=== PATIENT | female | born 1990 | race Caucasian/White ===

== ENCOUNTER → 2022-05-21 11:08 | Outpatient (CLI) | payer MEDICAID, SELFPAY ==
--- NOTE | 2022-05-21 11:10 | CA_ITS ---
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 Operator: Starla Candelario RVT Ht: 5 ft 8 in Wt: 175lbs BSA: 1.93 BP: 109/75 mmHg Indications: TVR X 2,BRADYCARDIA,SMOKER,HOUSE,CHF HX,HX DRUG USE 2D Dimensions LVOT 1.83 cm (M/F) 1.5-2.5 LA Volume 22.80 mL LA Volume Index 11.81 mL/m2 (M/F) 16-34 M-Mode Dimensions RVDd 3.23 cm (0.9-2.6) LA Diam 3.39 cm (1.9-4.0) LVDd 3.73 cm (3.5-5.7) Ao Diam 2.44 cm (2.0-3.7) LVDs 2.58 cm (3.5-5.7) IVSd 0.84 cm (0.6-1.1) PWd 0.46 cm (0.6-1.1) EF (Teich) 59.40% FS 30.80% EDV (Teich) 59.30 mL ESV (Teich) 24.10 mL LV Diastology E Decel Time 150.00 (160-240 msec) E/A Ratio 1.3 MED E' 12.70 (< 7 cm/sec) E'/MED E' Ratio 5.78 (>14) LAT E' 11.60 (<10 cm/sec) E/LAT E' Ratio 6.33 (>14) Aortic Valve AO Peak GR. 3.90 mmHg Mitral Valve MV E Max Brad. 73.00 (40-130 cm/s) MV A Velocity 56.00 (40-130 cm/s) E/A Ratio 1.31 MV Decel. Time 150.00 (160-240 ms) MV PHT 44.00 ms Pulmonary Valve PV Peak Velocity 55.00 (50-150 cm/s) Tricuspid Valve TR P. Velocity 232.00 cm/s TV Vmax 223.70 (30-100 cm/s) Left Ventricle Left atrium is normal size, left ventricle is normal size there is no concentric left ventricular hypertrophy, estimated ejection fraction 55% with no regional wall motion abnormality, diastolic parameters are within normal range. Right Ventricle Right atrium and right ventricle moderately enlarged with normal contractility. Aortic Valve Aortic valve is minimally thickened and fibrosed there is no aortic stenosis aortic insufficiency. Mitral Valve Mitral valve structurally normal, there is trace mitral regurgitation. Tricuspid Valve There is bioprosthetic valve noted in the tricuspid position, tricuspid valve is well-seated, mean gradient across the tricuspid valve is 9.2 mmHg, the color inflow pattern of tricuspid valve is not indicated valve significant tricuspid stenosis, there is moderate tricuspid regurgitation. Pulmonic Valve Pulmonic valve is poorly visualized. Great Vessels Aortic root is normal size. Inferior vena cava is normal size with normal inspiratory collapse. Pericardium No significant pericardial effusion noted. Conclusion 1. Normal left ventricular size preserved left ventricular systolic function, estimated ejection fraction 55% with no regional wall motion abnormality, diastolic parameters are within normal range. 2. Moderately enlarged right atrium and right ventricle. 3. Bioprosthetic valve in tricuspid position with no significant obvious tricuspid inflow obstruction, there is moderate tricuspid regurgitation. 4. No significant pericardial effusion noted. 5. Inferior vena cava normal size with normal inspiratory collapse. Electronically signed by : Robinson Claros MD 05/22/2022 11:31:42
== END ==
PROVIDERS: PCP Emergency Medicine; Visit Provider Nurse Practitioner Family
DX: R06.00 Dyspnea, unspecified (principal); Z95.2 Presence of prosthetic heart valve
CPT/HCPCS: 93306

== ENCOUNTER 2022-06-23 19:49 | Emergency (ER) | payer MEDICAID, SELFPAY ==
[2022-06-23 19:50] VITALS: BP 140/81; PULSE 97; RESP 20; TEMP 36.6; O2SAT 99; BMI 26.6
--- NOTE | 2022-06-23 20:11 | HMH.EDGENADL ---
ED Disposition Clinical Impression: Abdominal pain Qualifiers: Abdominal location: left lower quadrant Qualified Code(s): R10.32 - Left lower quadrant pain Disposition: Home, Self-Care Condition on Discharge: Good Instructions: DI for Acute Abdominal Pain Additional Instructions: You have been evaluated for abdominal pain, now resolved. Please monitor your symptoms closely. Tylenol or Motrin for pain. Bentyl for cramps. 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 Return to the emergency department at once for any new or worsening pain, fever, vomiting, other concerns. Prescriptions: Dicyclomine HCl 20 mg PO TIDP PRN #12 tab PRN Reason: Cramping Transmission Status: Pending to [id number] Referrals: Brooke Castaneda DO [Referring] - Time of Disposition: 23:47 - Critical Care Critical Care Time: No Attestation: On , the high probability of a clinically significant, sudden or life threatening deterioration of the following system(s) required my full and direct attention, intervention and personal management. The time I documented below is in addition to time spent performing reported procedures but includes the following listed in this critical care notation. Medical Decision Making - Medical Records Medical records reviewed: Yes: I reviewed the patient's medical records. - Cory Inquiry Pt receiving controlled substance: No Vital Signs: 06/23/22 19:50 06/23/22 20:52 06/23/22 21:00 Temperature 97.8 F Temperature Source Oral Pulse Rate 60 54 L Pulse Rate [Right] 97 H Respiratory Rate 20 Blood Pressure 89/48 L 88/41 L Blood Pressure [Right Arm] 140/81 Blood Pressure Mean Blood Pressure Mean [Right Arm] 100 02 Sat by Pulse Oximetry 99 97 98 06/23/22 21:33 06/23/22 22:00 Temperature Temperature Source Pulse Rate 57 L 63 Pulse Rate [Right] Respiratory Rate Blood Pressure 113/71 110/78 Blood Pressure [Right Arm] Blood Pressure Mean 86 Blood Pressure Mean [Right Arm] 02 Sat by Pulse Oximetry 98 97 - Lab Data Lab Results 06/23/22 19:57: Urine Color Yellow, Urine Appearance Sl cloudy, Urine pH 5.0, Ur Specific Morgan >= 1.030, Urine Protein 1+, Urine Glucose (UA) Negative, Urine Ketones Negative, Urine Blood Negative, Urine Nitrate Negative, Urine Bilirubin 1+ A, Urine Urobilinogen 1.0, Ur Leukocyte Esterase Trace, Urine WBC 10-20, Ur Squamous Epith Cells 5-10, Urine Bacteria 2+, Urine Mucus 1+, Urine Trichomonas 1+ 06/23/22 19:57: Urine HCG, Qual Negative 06/23/22 20:13: WBC 8.4, RBC 4.70, Hgb 13.1, Hct 43.2, MCV 92.0, MCH 27.9, MCHC 30.3 L, RDW 15.1, Plt Count 157, MPV 11.0 H, Neut % (Auto) 66.3, Lymph % (Auto) 26.6, [place] % (Auto) 4.8, Eos % (Auto) 1.3, Baso % (Auto) 0.9, Neut # (Auto) 5.6, Lymph # (Auto) 2.2, [place] # (Auto) 0.4, Eos # (Auto) 0.1, Baso # (Auto) 0.1 06/23/22 20:13: Sodium 142, Potassium 4.2, Chloride 106, Carbon Dioxide 31 H, Anion Gap 9.2, BUN 14, Creatinine 0.70, Estimated Creat Clear 142, Estimated GFR 96, Est GFR ( Amer) 116, Glucose 111 H, Calcium 9.5, Total Bilirubin 0.3, AST 31, ALT 16, Alkaline Phosphatase 145 H, Total Protein 7.7, Albumin 4.3, Globulin 3.4 H, Albumin/Globulin Ratio 1.3, Lipase 32 Result diagrams: 06/23/22 20:13 06/23/22 20:13 Orders (Tests/Meds): ED MEDICATIONS Discontinued Medications Generic Name Dose Route Start Last Admin Trade Name Jorgeq PRN Reason Stop Dose Admin Iopamidol 75 ml 06/23/22 21:13 06/23/22 21:14 Iopamidol-370 (76%);100ml Bottle IV 06/23/22 21:14 75 ml ONCE ONE Administration Ketorolac Tromethamine 15 mg 06/23/22 20:11 06/23/22 20:28 Ketorolac 30mg/Ml Vial IV 06/23/22 20:12 15 mg ONCE ONE Administration Ondansetron HCl 4 mg 06/23/22 20:11 06/23/22 20:29 Ondansetron 4mg/2ml Vial IV 06/23/22 20:12 4 mg ONCE ONE Administration Sodium Chloride 10 ml 06/23/22 21:13 06/23/22 21:14 Sodium Chloride 0.9% 10ml Syr
[2022-06-23 20:15] LABS: Urine Pregnancy, HCG Qual. Negative (Negative)
[2022-06-23 20:19] LABS: Microscopic, Urine URINE MICROSCOPIC (MICROSCOPIC)
[2022-06-23 20:20] LABS: Appearance,Urine SL CLOUDY (Clear); Blood, Urine Negative (Negative); Color,Urine YELLOW (Yellow); Glucose,Urine (UA) Negative (Negative); Ketones,Urine Negative (Negative); Leukocyte Esterase,Urine TRACE (Negative); Nitrate,Urine Negative (Negative); Protein,Urine 1+ (Negative); Specific Gravity, Urine >= 1.030 (1.005-1.030)
[2022-06-23 20:24] LABS: Bilirubin,Urine 1+ (Negative)
[2022-06-23 20:27] LABS: Basophils # 0.1 K/mm3 (0-0.2); Basophils % 0.9 % (0.1-2.0); Eosinophils # 0.1 K/mm3 (0.0-0.4); Eosinophils % 1.3 % (0.1-12.0); Hematocrit 43.2 % (37.0-47.0); Hemoglobin 13.1 g/dL (12.2-16.2); Lymphocytes # 2.2 K/mm3 (0.7-4.5); Lymphocytes % 26.6 % (10-50); Mean Corpuscular HGB Conc 30.3 g/dL (31.8-35.4); Mean Corpuscular Hemoglobin 27.9 pg (27.0-31.2); Monocytes # 0.4 K/mm3 (0.1-1.0); Monocytes % 4.8 % (1.7-9.3); Neutrophils # 5.6 K/mm3 (1.8-7.8); Neutrophils % 66.3 % (37.0-80.0); Platelet Count 157 K/mm3 (142-424); Red Cell Distribution Width 15.1 % (11.5-17.5); White Blood Count 8.4 K/mm3 (4.8-10.8)
[2022-06-23 20:31] LABS: Alanine Aminotransferase 16 U/L (12-78); Albumin Level 4.3 g/dl (3.5-5.0); Albumin/Globulin Ratio 1.3 (1.1-1.8); Alkaline Phosphatase 145 U/L (38-126); Anion Gap 9.2 mEq/L (5-15); Aspartate Amino Transferase 31 U/L (14-36); Bilirubin,Total 0.3 mg/dl (0.2-1.3); Blood Urea Nitrogen 14 mg/dl (7-17); Calcium 9.5 mg/dl (8.4-10.2); Carbon Dioxide 31 mmol/L (22.0-30.0); Chloride 106 mmol/L (98-107); Creatinine Clearance Estimated 142 mL/min (50-200); Estimated Glomerular Filt Rate 96 ml/min (>60); GFR (African American) 116 ML/MIN (>60); Globulin 3.4 g/dL (1.3-3.2); Glucose 111 mg/dl (74-100); Lipase 32 U/L (23-300); Potassium 4.2 mmoL/L (3.5-5.1); Sodium 142 mmol/L (136-145); Total Protein,Serum 7.7 g/dl (6.3-8.2)
[2022-06-23 20:52] VITALS: BP 89/48; PULSE 60; O2SAT 97
--- NOTE | 2022-06-23 20:56 | CT_ITS ---
PROCEDURE INFORMATION: Exam: CT Abdomen And Pelvis With Contrast Exam date and time: 06/23/2022 9:01 PM Age: 32 years old Clinical indication: Abdominal pain; Localized; Left lower quadrant (llq); Prior surgery; Surgery type: Cholecystectomy; Additional info: Llq pain TECHNIQUE: Imaging protocol: Computed tomography of the abdomen and pelvis with contrast. Radiation optimization: All CT scans at this facility use at least one of these dose optimization techniques: automated exposure control; mA and/or kV adjustment per patient size (includes targeted exams where dose is matched to clinical indication); or iterative reconstruction. Contrast material: ISOVUE; Contrast volume: 75 ml; Contrast route: IV; COMPARISON: No relevant prior studies available. FINDINGS: Liver: Normal. No mass. Gallbladder and bile ducts: Post cholecystectomy change. Pancreas: Normal enhancement. No ductal dilation. Spleen: No splenomegaly. Adrenal glands: No mass. Kidneys and ureters: No hydronephrosis. Stomach and bowel: Moderate stool burden. No obstruction. No mucosal thickening. Appendix: No evidence of appendicitis. Intraperitoneal space: Trace free fluid within the pelvis. Vasculature: No abdominal aortic aneurysm. Lymph nodes: No enlarged lymph nodes. Urinary bladder: Urinary bladder is decompressed and not well evaluated. Reproductive: Mild heterogeneity of the uterus and cervix. Bones/joints: No acute fracture. Soft tissues: No soft tissue swelling. IMPRESSION: Mild heterogeneity of the uterus and cervix which is nonspecific. If there is concern for pelvic pathology, targeted ultrasound can be obtained for further evaluation.
[2022-06-23 21:00] VITALS: BP 88/41; PULSE 54; O2SAT 98
[2022-06-23 21:07] LABS: Bacteria,Urine 2+ /lpf; Mucus,Urine 1+ /lpf
[2022-06-23 21:08] LABS: Trichomonas,Urine 1+ /lpf
[2022-06-23 21:33] VITALS: BP 113/71; PULSE 57; O2SAT 98
[2022-06-23 22:00] VITALS: BP 110/78; PULSE 63; O2SAT 97
--- NOTE | 2022-06-23 22:08 | US_ITS ---
PROCEDURE INFORMATION: Exam: US Pelvis, Transvaginal Exam date and time: 06/23/2022 11:21 PM Age: 32 years old Clinical indication: Pelvic pain; Additional info: RO torsion. Llq pain TECHNIQUE: Imaging protocol: Real-time transvaginal pelvic ultrasound with image documentation. Transvaginal imaging was used for better evaluation of the endometrium, adnexa, and/or cervix. COMPARISON: No relevant recent comparison exams. FINDINGS: Uterus: UTERUS measures approximately 8.1 x 4.3 x 4.3 cm. Endometrial stripe thickness: Endometrial thickness is approximately 7 mm. Right ovary/adnexa: RIGHT OVARY measures approximately 14.6 mL and demonstrates normal color flow. Few small anechoic follicles. Left ovary/adnexa: LEFT OVARY measures approximately 9.1 mL and demonstrates normal color flow. Few small anechoic follicles. Intraperitoneal space: No discernible adnexal mass or abnormality. No free fluid within the pelvis. IMPRESSION: Normal pelvic sonogram.
--- NOTE | 2022-06-23 22:09 | PC.NURSE ---
notified xray that ultrasound needs to be called in
--- NOTE | 2022-06-23 22:29 | PC.NURSE ---
rounded on pt and notified that we are awaiting hearing aid repair technician
--- NOTE | 2022-06-23 23:13 | PC.NURSE ---
pt gone to ultrasound
--- NOTE | 2022-06-23 23:36 | PC.NURSE ---
Patient has returned from ultrasound.
[2022-06-23 23:53] VITALS: BP 103/82; PULSE 77; RESP 18; TEMP 36.6; O2SAT 99
== END 2022-06-24 | disposition home or self-care (01) ==
PROVIDERS: Emergency Provider Emergency Medicine; PCP Emergency Medicine
DX: R10.32 Left lower quadrant pain (principal); Z88.2 Allergy status to sulfonamides; Z79.899 Other long term (current) drug therapy
CPT/HCPCS: 74177; 76830; 80053; 81001; 81025; 83690; 85025; 87086; 96374; 96375; 99284; J2405; Q9967

== ENCOUNTER 2022-09-13 13:07 | Emergency (ER) | payer MEDICAID, SELFPAY ==
[2022-09-13 13:08] VITALS: BP 128/91; PULSE 86; RESP 18; TEMP 37.1; O2SAT 100; BMI 25.8
[2022-09-13 13:43] VITALS: BP 114/81; PULSE 79; RESP 19; TEMP 37.1; O2SAT 100
--- NOTE | 2022-09-13 14:26 | HMH.EDSKAF ---
Discharge Plan Disposition Patient Disposition: Home, Self-Care Condition: Good Prescriptions Prescriptions: New clindamycin HCl [Cleocin HCl] 300 mg capsule 300 mg PO Q8H 10 Days Qty: 30 0RF No Action hydroxyzine pamoate 25 mg capsule 25 mg PO TID trazodone 50 mg tablet 50 mg PO DAILY PRN (Reason: Sleep) methadone 10 mg/5 mL solution 75 mg PO Q4H duloxetine 30 mg capsule,delayed release(DR/EC) 30 mg PO DAILY Referrals Follow up/Referrals: Provider,Referral, [Primary Care Provider] - See instructions Activity Restrictions/Add. Instructions Additional Instructions/Restrictions: Please use the mupirocin cream daily as prescribed on your facial wounds. Please also take the clindamycin daily as prescribed. Please follow-up with your primary care physician in the next 2 to 3 days for wound check. Please return to the emergency department if symptoms worsen. Clinical Impressions Clinical Impression: Impetigo, Cellulitis Instructions Patient Instructions: Impetigo, Cellulitis Print Language Print Language: Slovenian Discharge ED Provider: Aniya Yin Skin/Abscess/FB HPI General Chief complaint: Skin/Abscess/Foreign Body Stated complaint: rash on chin Time Seen by Provider: 09/13/22 13:45 Mode of Arrival: Ambulatory Source of Information: Patient Limitations: No Limitations Description of Symptoms (Recalled from ER Triage Doc. by RN): c/o rash on her chin that started last night as what she thought was a pimple and popped it and then last night the rash started to cover her chin, no change on her rash since then. History of Present Illness HPI narrative: Mrs. Zambrano is a 32-year-old female past medical history for IV drug use active user presenting to the emergency department complaining of a honeycomb, crusted rash alongside her lower chin. Nonpainful. Nonpruritic. Symptom onset yesterday. She reports it started off as a pimple and has significantly worsened. Patient also reports a chronic rash along her chest and upper extremities. She denies any notable abscesses. No fevers, chills, and/V or other systemic signs of infection. MD complaint: rash Onset (ago): day(s) Tetanus up to date: yes Location: face Severity: mild Consistency: constant Relieving factors: none Exacerbating factors: none Associated symptoms: denies other symptoms Treatments prior to arrival: none Related Data Home Medications Medication Instructions Recorded Confirmed hydroxyzine pamoate 25 mg capsule 25 mg PO TID anxiety 05/12/22 09/13/22 methadone 10 mg/5 mL oral solution 75 mg PO Q4H addiction 05/12/22 09/13/22 trazodone 50 mg tablet 50 mg PO DAILY PRN Sleep 05/12/22 09/13/22 duloxetine 30 mg capsule,delayed 30 mg PO DAILY mood 09/13/22 09/13/22 release Previous Rx's Medication Instructions Recorded clindamycin HCl 300 mg capsule 300 mg PO Q8H 10 days #30 caps 09/13/22 (Cleocin HCl) Allergies Allergy/AdvReac Type Severity Reaction Status Date / Time Sulfa (Sulfonamide Allergy Verified 06/23/22 20:50 Antibiotics) PFSH PFSH Medical History Dyspnea History of drug use Moderate tricuspid regurgitation Sinus bradycardia Tobacco use Surgical History (Updated 05/12/22 @ 13:52 by Nhung Salcedo RN) Tricuspid valve replaced Social History Smoking Status: Current every day smoker alcohol intake: never substance use type: former substance user and heroin current occupational status: other Travel in the last 8 weeks: Inside the [place] ROS Obtained: Yes All systems reviewed & no additional complaints except as documented Constitutional Constitutional: Reports system reviewed and no additional complaints, except as documented Eyes Eyes: Reports system reviewed and no additional complaints, except as documented ENT Ears, Nose, Mouth, and Throat: Reports system reviewed and no additional complaints, except as documented Cardiovascular
== END 2022-09-13 13:45 | disposition home or self-care (01) ==
PROVIDERS: Emergency Provider Student in an Organized Health Care Education/Training Program
DX: L01.00 Impetigo, unspecified (principal); L03.90 Cellulitis, unspecified; F19.11 Other psychoactive substance abuse, in remission; Z87.898 Personal history of other specified conditions; Z79.899 Other long term (current) drug therapy; I07.1 Rheumatic tricuspid insufficiency; Z95.4 Presence of other heart-valve replacement
CPT/HCPCS: 99283

== ENCOUNTER 2022-11-12 10:30 | Emergency (ER) | payer MEDICAID, SELFPAY ==
[2022-11-12 10:31] VITALS: BP 100/65; PULSE 73; RESP 16; TEMP 36.7; O2SAT 98; BMI 26.6
--- NOTE | 2022-11-12 11:00 | HMH.EDGENADL ---
Discharge Plan Disposition Patient Disposition: Home, Self-Care Condition: Good Prescriptions Prescriptions: New cefadroxil 500 mg capsule 500 mg PO BID 5 Days Qty: 10 0RF No Action hydroxyzine pamoate 25 mg capsule 25 mg PO TID trazodone 50 mg tablet 50 mg PO DAILY PRN (Reason: Sleep) methadone 10 mg/5 mL solution 75 mg PO Q4H duloxetine 30 mg capsule,delayed release(DR/EC) 30 mg PO DAILY clindamycin HCl [Cleocin HCl] 300 mg capsule 300 mg PO Q8H 10 Days Qty: 30 0RF Referrals Follow up/Referrals: Raul Castaneda MD [Primary Care Provider] - See instructions Activity Restrictions/Add. Instructions Additional Instructions/Restrictions: Discontinue use of intravenous drugs out of concern for development of endocarditis or sepsis, if you have any other concerning signs or symptoms, return to the ED for further evaluation. Clinical Impressions Clinical Impression: Impetigo Instructions Patient Instructions: DI for Skin Abscess Discharge ED Provider: Andrew Sultana General Adult HPI General Chief complaint: Skin/Abscess/Foreign Body Stated complaint: sores on body Time Seen by Provider: 11/12/22 10:35 Mode of Arrival: Ambulatory Source of Information: Patient Limitations: No Limitations Description of Symptoms (Recalled from ER Triage Doc. by RN): pt reports thinks she has impetigo, states she was treated for impetigo approx 1 month ago states areas are in same spots as approx 1 month ago. Reports started 3 days ago. 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 Patient states that she has had skin lesions popping up on her chin and chest, as well as bilateral upper and lower extremities, worse over the past 2 or 3 days. She was diagnosed with impetigo in the past, it seemed similar to this. Spots are not itchy, painful, or symptomatic in any way. She denies fevers, chills, chest pain, shortness of breath, nausea, vomiting, neurologic deficits, recent illness, sores on palms or soles, or any other concerning symptoms. Related Data Home Medications Medication Instructions Recorded Confirmed hydroxyzine pamoate 25 mg capsule 25 mg PO TID anxiety 05/12/22 09/13/22 methadone 10 mg/5 mL oral solution 75 mg PO Q4H addiction 05/12/22 09/13/22 trazodone 50 mg tablet 50 mg PO DAILY PRN Sleep 05/12/22 09/13/22 duloxetine 30 mg capsule,delayed 30 mg PO DAILY mood 09/13/22 09/13/22 release Previous Rx's Medication Instructions Recorded clindamycin HCl 300 mg capsule 300 mg PO Q8H 10 days #30 caps 09/13/22 (Cleocin HCl) cefadroxil 500 mg capsule 500 mg PO BID 5 days #10 caps 11/12/22 Allergies Allergy/AdvReac Type Severity Reaction Status Date / Time Sulfa (Sulfonamide Allergy Verified 06/23/22 20:50 Antibiotics) [facility] Disclaimer: The information contained in this section may have been updated after the patient was seen, as this information can be updated by other users. Medical History Dyspnea History of drug use Moderate tricuspid regurgitation Sinus bradycardia Tobacco use Surgical History (Updated 05/12/22 @ 13:52 by Nhung Salcedo RN) Tricuspid valve replaced Social History Smoking Status: Current every day smoker alcohol intake: never substance use type: former substance user and heroin current occupational status: other Travel in the last 8 weeks: Inside the [place] ROS Obtained: Yes All systems reviewed & no additional complaints except as documented Physical Exam General General appearance: alert and in no apparent distress Head Head exam: atraumatic, normocephalic and normal inspection Eye Eye exam: Present normal appearance, PERRL and EOMI ENT ENT exam: Present normal exam, normal gael
[2022-11-12 11:20] VITALS: BP 96/61; PULSE 76; RESP 17; TEMP 36.8; O2SAT 99
== END 2022-11-12 11:20 | disposition home or self-care (01) ==
PROVIDERS: Emergency Provider Emergency Medicine; PCP Emergency Medicine
DX: L01.00 Impetigo, unspecified (principal); R00.1 Bradycardia, unspecified; R21 Rash and other nonspecific skin eruption; L98.9 Disorder of the skin and subcutaneous tissue, unspecified; I34.0 Nonrheumatic mitral (valve) insufficiency; Z79.899 Other long term (current) drug therapy; Z88.2 Allergy status to sulfonamides; Z95.4 Presence of other heart-valve replacement
CPT/HCPCS: 99283

== ENCOUNTER 2023-01-12 16:49 | Emergency (ER) | payer MEDICAID, SELFPAY ==
[2023-01-12 16:50] VITALS: BP 127/90; PULSE 85; RESP 17; TEMP 36.7; O2SAT 97; BMI 28.8
[2023-01-12 18:57] VITALS: BP 133/75; PULSE 81; RESP 18; TEMP 36.6; O2SAT 97
--- NOTE | 2023-01-12 18:57 | HMH.EDGENADL ---
Discharge Plan Disposition Patient Disposition: Home, Self-Care Condition: Good Prescriptions Prescriptions: New cefadroxil 500 mg capsule 500 mg PO BID 5 Days Qty: 10 0RF mupirocin 2 % ointment 1 applic topical TID Qty: 15 0RF No Action trazodone 50 mg tablet 50 mg PO DAILY PRN (Reason: Sleep) methadone 10 mg/5 mL solution 75 mg PO Q4H benzonatate 200 mg capsule 200 mg PO TID PRN (Reason: cough) 10 Days Qty: 30 0RF Referrals Follow up/Referrals: Provider,Referral, MD [Primary Care Provider] - See instructions Activity Restrictions/Add. Instructions Additional Instructions/Restrictions: Take antibiotic for full 5-day course and apply ointment to affected spots. If you have any other concerns, return to the ER or your primary care provider for further evaluation. Clinical Impressions Clinical Impression: Facial rash Instructions Patient Instructions: DI for Skin Abscess Discharge ED Provider: Andrew Sultana General Adult HPI General Chief complaint: Skin/Abscess/Foreign Body Stated complaint: Rash over face X3-4 days Time Seen by Provider: 01/12/23 17:10 Mode of Arrival: Ambulatory Source of Information: Patient Limitations: No Limitations Description of Symptoms (Recalled from ER Triage Doc. by RN): 32 F presents with facial rash that is similar to a previous rash she had one month ago. Impetigo is what she was diagnosed with and given steroid cream. History of Present Illness HPI narrative: This is a 32-year-old female with history of facial rash and impetigo presenting with facial rash. Patient states that this rash has been ongoing on and off, but has gotten acutely worse over the past couple of days. Worse on her face, has yellow discoloration around the outside and prabhakar. At corner of mouth, prabhakar and cracks when patient opens and closes her mouth. She states that she believes she had fevers at 1 point, but did not take any objective measurements. Ran out of antibiotic ointment that she used previously to help and seeks care at this time. Denies any other current symptoms or systemic symptoms. Related Data Home Medications Medication Instructions Recorded Confirmed methadone 10 mg/5 mL oral solution 75 mg PO Q4H addiction 05/12/22 01/07/23 trazodone 50 mg tablet 50 mg PO DAILY PRN Sleep 05/12/22 01/07/23 Previous Rx's Medication Instructions Recorded benzonatate 200 mg capsule 200 mg PO TID PRN cough 10 days 01/07/23 #30 caps cefadroxil 500 mg capsule 500 mg PO BID 5 days #10 caps 01/12/23 mupirocin 2 % topical ointment 1 applic topical TID #15 grams 01/12/23 Allergies Allergy/AdvReac Type Severity Reaction Status Date / Time Sulfa (Sulfonamide Allergy Verified 01/07/23 14:37 Antibiotics) [facility] Disclaimer: The information contained in this section may have been updated after the patient was seen, as this information can be updated by other users. Medical History Abdominal pain Cellulitis Dyspnea History of drug use Impetigo Impetigo Moderate tricuspid regurgitation Sinus bradycardia Tobacco use Surgical History Tricuspid valve replaced Social History (Updated 01/07/23 @ 14:40 by Thony Dupree LPN) Smoking Status: Current every day smoker tobacco type: cigarettes packs per day: 1 alcohol intake: never substance use type: former substance user and heroin current occupational status: other Travel in the last 8 weeks: Inside the [place] [facility] ROS Obtained: Yes All systems reviewed & no additional complaints except as documented Physical Exam General General appearance: alert and in no apparent distress Head Head exam: atraumatic, normocephalic and normal inspection Eye Eye exam: Present normal appearance, PERRL and EOMI ENT ENT exam: Present normal exam, normal oropharynx, mucous membranes moist, TM's normal bilaterally and normal external
== END 2023-01-12 19:24 | disposition home or self-care (01) ==
PROVIDERS: Emergency Provider Emergency Medicine
DX: R21 Rash and other nonspecific skin eruption (principal); F17.210 Nicotine dependence, cigarettes, uncomplicated; Z86.79 Personal history of other diseases of the circulatory system
CPT/HCPCS: 99283; 99284

== ENCOUNTER → 2023-01-21 13:26 | Outpatient (CLI) | payer MEDICAID, SELFPAY | PROVIDERS: Visit Provider Nurse Practitioner | DX: R00.0 Tachycardia, unspecified (principal); F41.9 Anxiety disorder, unspecified; I07.1 Rheumatic tricuspid insufficiency; R94.31 Abnormal electrocardiogram [ECG] [EKG]; Z72.0 Tobacco use; Z87.898 Personal history of other specified conditions; Z95.4 Presence of other heart-valve replacement | CPT/HCPCS: 93306 ==

== ENCOUNTER 2023-03-27 22:25 | Emergency (ER) | payer MEDICAID, SELFPAY ==
[2023-03-27 22:27] VITALS: BP 107/67; PULSE 64; RESP 18; TEMP 36.4; O2SAT 98; BMI 27.3
[2023-03-27 22:39] LABS: Coronavirus 19, PCR Not Detected (NotDetected); Influenza A, PCR Not Detected (NotDetected); Influenza B, PCR Not Detected (NotDetected)
[2023-03-27 22:48] LABS: Strep Scrn Group A (Rapid) Negative (Negative)
[2023-03-27 23:14] VITALS: BP 107/67; PULSE 68; RESP 18; TEMP 36.6; O2SAT 99
--- NOTE | 2023-03-28 02:31 | HMH.EDGENADL ---
Discharge Plan Disposition Patient Disposition: Home, Self-Care Condition: Good Prescriptions Prescriptions: No Action trazodone 50 mg tablet 50 mg PO DAILY PRN (Reason: Sleep) methadone 10 mg/5 mL solution 75 mg PO Q4H propranolol 60 mg capsule,extended release 24 hr 60 mg PO DAILY Qty: 30 2RF furosemide [Lasix] 20 mg tablet 20 mg PO DAILY PRN (Reason: edema) Qty: 30 5RF mupirocin 2 % ointment 1 applic topical TID Qty: 15 0RF Referrals Follow up/Referrals: Provider,Referral, MD [Primary Care Provider] - See instructions Clinical Impressions Clinical Impression: URI (upper respiratory infection) Stand Alone Forms Stand Alone Forms: Work/School Release Discharge ED Provider: Ricardo Matthews Adult HPI General Chief complaint: Upper Respiratory Infection Stated complaint: sore throat,fever,body aches Time Seen by Provider: 03/27/23 22:35 Mode of Arrival: Ambulatory Source of Information: Patient Limitations: No Limitations Description of Symptoms (Recalled from ER Triage Doc. by RN): Pt states that she has had a sore throat for two days and was exposed to strep throat. Also c/o body aches for 3-4 days. History of Present Illness HPI narrative: This is a very pleasant 32-year-old female with no significant past medical history who presents with a chief complaint of sore throat, generalized body ache, subjective fevers. This has been going on for the past 2 to 4 days. Constant. Moderate. No voice changes. No trouble swallowing. No neck swelling or pain. No chest pain or shortness of breath. No abdominal pain, nausea, or vomiting. She was recently exposed to strep throat. Related Data Home Medications Medication Instructions Recorded Confirmed methadone 10 mg/5 mL oral solution 75 mg PO Q4H addiction 05/12/22 03/25/23 trazodone 50 mg tablet 50 mg PO DAILY PRN Sleep 05/12/22 03/25/23 Previous Rx's Medication Instructions Recorded mupirocin 2 % topical ointment 1 applic topical TID #15 grams 01/12/23 propranolol 60 mg capsule,24 60 mg PO DAILY #30 caps 01/21/23 hr,extended release furosemide 20 mg tablet (Lasix) 20 mg PO DAILY PRN edema #30 tabs 03/25/23 Allergies Allergy/AdvReac Type Severity Reaction Status Date / Time Sulfa (Sulfonamide Allergy Verified 03/25/23 08:43 Antibiotics) [facility] Disclaimer: The information contained in this section may have been updated after the patient was seen, as this information can be updated by other users. Medical History Abdominal pain Cellulitis Dyspnea History of drug use Impetigo Impetigo Moderate tricuspid regurgitation Sinus bradycardia Tobacco use Surgical History Tricuspid valve replaced Social History Smoking Status: Current every day smoker tobacco type: cigarettes packs per day: 1 alcohol intake: never substance use type: former substance user and heroin current occupational status: other Travel in the last 8 weeks: Inside the [place] ROS Obtained: Yes All systems reviewed & no additional complaints except as documented Physical Exam General General appearance: alert Head Head exam: atraumatic Eye Eye exam: Present normal appearance ENT ENT exam: Present normal exam and other (Uvula is midline. No peritonsillar swelling. No submandibular, sublingual, submental swelling. Patient speaking in full sentences. Tolerating secretions without difficulty.) Neck Neck exam: Present normal inspection and other (Full range of motion of the neck without any pain or limitation.) Respiratory Respiratory exam: Present normal lung sounds bilaterally Cardiovascular Cardiovascular exam: Present regular rate Neurological Exam Neurological exam: Present alert and oriented X3 Medical Decision Making Cory Inquiry Pt receiving controlled substance: No Vital Signs:
== END 2023-03-27 23:18 | disposition home or self-care (01) ==
PROVIDERS: Emergency Provider Emergency Medicine
DX: J06.9 Acute upper respiratory infection, unspecified (principal); R50.9 Fever, unspecified; F17.210 Nicotine dependence, cigarettes, uncomplicated
CPT/HCPCS: 87430; 96372; 99283; 99284; C9803; U0003; U0005

== ENCOUNTER 2024-03-29 11:42 | Outpatient (CLI) | payer MEDICAID, SELFPAY | END 2024-03-29 23:59 | disposition home or self-care (01) | LOC: LAB.DROPOF 03-31 11:43 | PROVIDERS: PCP Nurse Practitioner Family; Visit Provider Nurse Practitioner Family | DX: N39.0 Urinary tract infection, site not specified (principal); B96.29 Other Escherichia coli [E. coli] as the cause of diseases classified elsewhere | CPT/HCPCS: 87086; 87088; 87186 ==

== ENCOUNTER 2024-05-01 15:34 | Emergency (ER) | payer MEDICAID, SELFPAY ==
[2024-05-01 16:10] VITALS: BP 92/59; PULSE 79; RESP 18; TEMP 36.7; O2SAT 99; BMI 31.9
--- NOTE | 2024-05-01 16:17 | ED_ITS ---
Discharge Plan Disposition Patient Disposition: Home, Self-Care Condition: Good Prescriptions Prescriptions: New amoxicillin 875 mg tablet 875 mg PO Q12H Qty: 20 0RF methylprednisolone 4 mg Tablets,Dose Pack 4 mg PO DIRECTED 6 Days Qty: 21 0RF Rx Instructions: Take 1 pack as directed for 6 days eyfwqlqgcoxxnod-uopafwgre-NV [Bromfed DM] 2-30-10 mg/5 mL Syrup 5 ml PO Q6H PRN (Reason: Cough) Qty: 240 0RF No Action trazodone 50 mg tablet 50 mg PO DAILY PRN (Reason: Sleep) methadone 10 mg/5 mL solution 75 mg PO Q4H furosemide [Lasix] 20 mg tablet 20 mg PO DAILY PRN (Reason: edema) Qty: 30 5RF nitrofurantoin monohyd/m-cryst [Macrobid] 100 mg capsule 100 mg PO Q12H 7 Days Qty: 14 0RF Rx Instructions: must administer with a meal/food propranolol 60 mg capsule,extended release 24 hr 60 mg PO DAILY Qty: 90 2RF mupirocin 2 % ointment 1 applic topical TID Qty: 15 0RF Referrals Follow up/Referrals: Provider,Referral, MD [Primary Care Provider] - See instructions Activity Restrictions/Add. Instructions Additional Instructions/Restrictions: Drink plenty of fluids. Take tylenol or ibuprofen for pain or fever. Take the medications as directed. Follow up with your regular doctor. GO TO THE ER FOR ANY WORSENING SYMPTOMS Clinical Impressions Clinical Impression: Pharyngitis Instructions Patient Instructions: Sore Throat, DI for Pharyngitis/Tonsillopharyngitis -- Adult, Methylprednisolone, Amoxicillin Discharge ED Provider: Marcell Hernandez [facility] General Stated complaint: sore throat, fever, h/a Time Seen by Provider: 05/01/24 16:17 Related Data Home Medications Medication Instructions Recorded Confirmed methadone 10 mg/5 mL oral solution 75 mg PO Q4H addiction 05/12/22 03/29/24 trazodone 50 mg tablet 50 mg PO DAILY PRN Sleep 05/12/22 03/29/24 Previous Rx's Medication Instructions Recorded mupirocin 2 % topical ointment 1 applic topical TID #15 grams 01/12/23 furosemide 20 mg tablet (Lasix) 20 mg PO DAILY PRN edema #30 tabs 03/25/23 propranolol 60 mg capsule,24 60 mg PO DAILY #90 caps 08/31/23 hr,extended release nitrofurantoin 100 mg PO Q12H 7 days #14 caps 03/29/24 monohydrate/macrocrystals 100 mg capsule (Macrobid) amoxicillin 875 mg tablet 875 mg PO Q12H #20 tabs 05/01/24 mlnjqfneymgrzhz-qysmikhvcytiuav-WK 5 ml PO Q6H PRN Cough #240 mL 05/01/24 2 mg-30 mg-10 mg/5 mL oral syrup (Bromfed DM) methylprednisolone 4 mg tablets in 4 mg PO DIRECTED 6 days #21 tabs 05/01/24 a dose pack Allergies Allergy/AdvReac Type Severity Reaction Status Date / Time Sulfa (Sulfonamide Allergy Verified 05/01/24 16:24 Antibiotics) [facility] Disclaimer: The information contained in this section may have been updated after the patient was seen, as this information can be updated by other users. Medical History Impetigo Cellulitis Impetigo Abdominal pain Moderate tricuspid regurgitation Dyspnea History of drug use Tobacco use Sinus bradycardia Surgical History Tricuspid valve replaced Family History Other No significant family history Social History Smoking Status: Current every day smoker tobacco type: cigarettes packs per day: 1 alcohol intake: never substance use type: former substance user and heroin current occupational status: other Travel in the last 8 weeks: Inside the [facility] ROS Obtained: Yes All systems reviewed & no additional complaints except as documented Constitutional Constitutional: Reports chills and Reports fever(s) Eyes Eyes: Denies eye discharge ENT Ears, Nose, Mouth, and Throat: Reports as per HPI Cardiovascular Cardiovascular: Denies chest pain Respiratory Respiratory: Denies chest congestion and Reports cough Gastrointestinal Gastrointestingal: Reports nausea; Denies abdominal pain, constipation, cramping, diarrhea or vomiting Musculoskeletal Musculoskeletal: Denies arthralgias Integumentary/Breasts Skin/Breast: Denies rash Neurologic Neurologic: Denies paresthesias Physical Exam General General appearance: alert and in no apparent distress Head Head exam: atraumatic, normocephalic and normal inspection Eye Eye exam: Present normal appearance, PERRL and EOMI ENT ENT exam: Present mucous membranes moist and normal external ear exam Expanded ENT Exam TM/Canal exam: Bilateral TM: erythema and bulging Nose exam: Absent sinus tenderness Mouth exam: Present normal external inspection; Absent drooling Teeth exam: Present normal inspection Throat exam: Present tonsillar erythema, tonsillomegaly and tonsillar exudate Neck Neck exam: Present normal inspection, full ROM and trachea midline; Absent tenderness, meningismus or lymphadenopathy Chest Chest inspection: Present normal inspection and symmetric chest wall rise; Absent tenderness Respiratory Respiratory exam: Present normal lung sounds bilaterally; Absent respiratory distress, wheezes, stridor or accessory muscle use Cardiovascular Cardiovascular exam: Present regular rate and normal rhythm; Absent systolic murmur or diastolic murmur Abdominal Exam Abdominal exam: Present soft and normal bowel sounds; Absent distention, tenderness, guarding, rebound or rigidity Extremities Exam Extremities exam: Present normal inspection and normal capillary refill; Absent calf tenderness Back Exam Back exam: Present normal inspection and full ROM; Absent tenderness, CVA tenderness (R) or CVA tenderness (L) Neurological Exam Neurological exam: Present alert, oriented X3 and CN II-XII intact Psychiatric Psychiatric exam: Present normal affect and normal mood Skin Skin exam: Present warm, dry, intact and normal color Medical Decision Making Medical Records Medical records reviewed: No I reviewed the patient's medical records. Cory Inquiry Pt receiving controlled substance: No
[2024-05-01 16:31] LABS: UTC Strep Screen (Rapid) Negative (Negative)
[2024-05-01 16:56] VITALS: BP 92/59; PULSE 79; RESP 18; TEMP 36.7; O2SAT 99
[2024-05-01 17:22] LABS: Coronavirus 19, PCR Not Detected (NotDetected); Influenza A, PCR Not Detected (NotDetected); Influenza B, PCR Not Detected (NotDetected)
--- NOTE | 2024-05-01 19:25 | PC.NURSE ---
Called an LM about rapid test results.
== END 2024-05-01 16:56 | disposition home or self-care (01) ==
PROVIDERS: Emergency Provider Nurse Practitioner Family
DX: J02.9 Acute pharyngitis, unspecified (principal); R50.9 Fever, unspecified; R51.9 Headache, unspecified; F17.210 Nicotine dependence, cigarettes, uncomplicated
CPT/HCPCS: 87636; 87880; 99204; 99212; G0463

== ENCOUNTER 2024-07-20 14:29 | Emergency (ER) | payer MEDICAID, SELFPAY ==
[2024-07-20 14:47] VITALS: BP 121/80; PULSE 74; RESP 16; TEMP 37.1; O2SAT 97; BMI 30.4
--- NOTE | 2024-07-20 15:02 | HMH.EDGENADL ---
Discharge Plan Disposition Patient Disposition: Home, Self-Care Condition: Good Prescriptions Prescriptions: No Action trazodone 50 mg tablet 50 mg PO DAILY PRN (Reason: Sleep) methadone 10 mg/5 mL solution 75 mg PO Q4H furosemide [Lasix] 20 mg tablet 20 mg PO DAILY PRN (Reason: edema) Qty: 30 5RF nitrofurantoin monohyd/m-cryst [Macrobid] 100 mg capsule 100 mg PO Q12H 7 Days Qty: 14 0RF Rx Instructions: must administer with a meal/food propranolol 60 mg capsule,extended release 24 hr 60 mg PO DAILY Qty: 90 2RF mupirocin 2 % ointment 1 applic topical TID Qty: 15 0RF amoxicillin 875 mg tablet 875 mg PO Q12H Qty: 20 0RF methylprednisolone 4 mg Tablets,Dose Pack 4 mg PO DIRECTED 6 Days Qty: 21 0RF Rx Instructions: Take 1 pack as directed for 6 days fuyjwypdnwpkkwb-rsyymlxpy-SR [Bromfed DM] 2-30-10 mg/5 mL Syrup 5 ml PO Q6H PRN (Reason: Cough) Qty: 240 0RF Referrals Follow up/Referrals: Sia Verma APRN [Primary Care Provider] - See instructions Activity Restrictions/Add. Instructions Additional Instructions/Restrictions: Please use NSAIDs or other anti-inflammatory medications for pain, rest, ice, elevation, will monitor for any changes in signs or symptoms such as fever chills chest pain shortness of breath, redness or swelling of the lower extremity. Follow-up with your family doctor. Clinical Impressions Clinical Impression: Strain of left calf muscle Instructions Patient Instructions: DI for Muscle Strain Print Language Print Language: Swedish Discharge ED Provider: Andrew Sultana General Adult HPI <BREANNE Villarreal - Last Filed: 07/20/24 16:13> General Chief complaint: Extremity Problem,Nontraumatic Stated complaint: pain in back left knee/leg Time Seen by Provider: 07/20/24 14:59 Mode of Arrival: Ambulatory Source of Information: Patient Limitations: No Limitations Description of Symptoms (Recalled from ER Triage Doc. by RN): c/o behind left knee/thigh pain that started this am, pt states she is concerned that it is a blood clot due to her previous valve replacements. No injury History of Present Illness HPI narrative: 34-year-old female presents the emergency department for onset of left lower extremity pain, located behind the knee, that started this morning. Patient states she woke up with the pain, she denies any trauma, or injury to the area. She has no real swelling in lower extremity, she denies any fever chills chest pain shortness of breath, González pain, nausea, vomiting, urinary symptoms. She has past medical history consistent with current everyday methadone use, for which she obtains at a clinic. She has past medical history consistent with IV drug abuse (heroin), prior history of endocarditis, tricuspid regurgitation x 3 surgeries, patient has a active porcine valve. Current everyday smoker, denies any alcohol use. Initial triage vitals grossly unremarkable. Of note, she has pain with ambulation. Onset (ago): hour(s) Related Data Home Medications ?Medication ?Instructions ?Recorded ?Confirmed methadone 10 mg/5 mL oral solution 75 mg PO Q4H addiction 05/12/22 03/29/24 trazodone 50 mg tablet 50 mg PO DAILY PRN Sleep 05/12/22 03/29/24 Previous Rx's ?Medication ?Instructions ?Recorded mupirocin 2 % topical ointment 1 applic topical TID #15 grams 01/12/23 furosemide 20 mg tablet (Lasix) 20 mg PO DAILY PRN edema #30 tabs 03/25/23 propranolol 60 mg capsule,24 60 mg PO DAILY #90 caps 08/31/23 hr,extended release nitrofurantoin 100 mg PO Q12H 7 days #14 caps 03/29/24 monohydrate/macrocrystals 100 mg capsule (Macrobid) amoxicillin 875 mg tablet 875 mg PO Q12H #20 tabs 05/01/24 aiqouhkarjsahep-tvrcaxjpaamfetg-SJ 5 ml PO Q6H PRN Cough #240 mL 05/01/24 2 mg-30 mg-10 mg/5 mL oral syrup (Bromfed DM) methylprednisolone 4 mg tablets in 4 mg PO DIRECTED 6 days #21 tabs 05/01/24 a dose pack Allergies Allergy/AdvReac Type Severity Reaction Status Date / Time Sulfa (Sulfonamide Allergy Verified 05/01/24 16:24 Antibiotics) [facility] <BREANNE Villarreal - Last Filed: 07/20/24 16:13> [facility] Disclaimer: The information contained in this section may have been updated after the patient was seen, as this information can be updated by other users. Medical History Impetigo Cellulitis Impetigo Abdominal pain Moderate tricuspid regurgitation Dyspnea History of drug use Tobacco use Sinus bradycardia Surgical History Tricuspid valve replaced Family History Other No significant family history Social History Smoking Status: Unknown if ever smoked alcohol intake: never substance use type: former substance user and heroin current occupational status: other Travel in the last 8 weeks: Inside the [place] <BREANNE Villarreal - Last Filed: 07/20/24 16:13> ROS Obtained: Yes All systems reviewed & no additional complaints except as documented Physical Exam <BREANNE Villarreal - Last Filed: 07/20/24 16:13> General General appearance: alert and in no apparent distress Head Head exam: atraumatic and normocephalic Eye Eye exam: Present PERRL and EOMI ENT ENT exam: Present mucous membranes moist Neck Neck exam: Present normal inspection Chest Chest inspection: Present normal inspection and symmetric chest wall rise Respiratory Respiratory exam: Present normal lung sounds bilaterally; Absent respiratory distress Cardiovascular Cardiovascular exam: Present regular rate, normal rhythm and diastolic murmur Abdominal Exam Abdominal exam: Present soft; Absent tenderness Extremities Exam Extremities exam: Present normal inspection, tenderness, normal capillary refill, calf tenderness and other (Positive Homans' sign to the left lower extremity, no collateral vein, swelling, no edema.); Absent edema or joint swelling Neurological Exam Neurological exam: Present alert and oriented X3 Psychiatric Psychiatric exam: Present normal affect Skin Skin exam: Present warm and dry; Absent cyanosis, erythema or pallor Medical Decision Making <BREANNE Villarreal - Last Filed: 07/20/24 16:13> Cory Inquiry Pt receiving controlled substance: No Cory was queried for this patient: No Vital Signs: 07/20/24 14:47 07/20/24 16:20 Temperature 98.7 F 97.9 F Temperature Source Oral Oral Pulse Rate 61 Pulse Rate [Left Radial] 74 Respiratory Rate 16 18 Blood Pressure 123/87 Blood Pressure [Right Arm] 121/80 Blood Pressure Mean [Right Arm] 93 Blood Pressure Source Automatic Cuff Blood Pressure Source [Right Arm] Automatic Cuff Blood Pressure Position Sitting Blood Pressure Position [Right Arm] Sitting 02 Sat by Pulse Oximetry 97 Oxygen Delivery Method Room Air Room Air Orders (Tests/Meds): ORDERS Category Date Time Status CA venous doppler LE LT Stat Y 07/20/24 15:08 Completed Medical Decision Narrative: 34-year-old female presents emergency department with left lower extremity pain, differential diagnose include but not limited to, calf strain, DVT, Garcia's cyst, knee strain/sprain. I discussed patient case with attending physician Dr. Sultana Will obtain left lower extremity duplex ultrasound to rule out DVT, patient has numerous risk factors and is Wells criteria positive. Patient's left lower extremity duplex ultrasound was negative per I and the attending physician read. Patient cleared to be discharged home to self-care, she has no other acute signs or symptoms, no chest pain, no shortness of breath, has remained hemodynamically stable without her time in the emergency department this is most likely a calf strain,/Garcia's cyst. Recommend follow-up with PCP as directed, strict ED return precautions given. Commend NSAIDs and other anti-inflammatory medications as well as rest ice and elevation for pain. Patient voiced understand agreement current treatment plan/discharge plan. <Andrew Sultana MD - Last Filed: 07/21/24 14:58> Vital Signs: 07/20/24 14:47 07/20/24 16:20 Temperature 98.7 F 97.9 F Temperature Source Oral Oral Pulse Rate 61 Pulse Rate [Left Radial] 74 Respiratory Rate 16 18 Blood Pressure 123/87 Blood Pressure [Right Arm] 121/80 Blood Pressure Mean [Right Arm] 93 Blood Pressure Source Automatic Cuff Blood Pressure Source [Right Arm] Automatic Cuff Blood Pressure Position Sitting Blood Pressure Position [Right Arm] Sitting 02 Sat by Pulse Oximetry 97 Oxygen Delivery Method Room Air Room Air Orders (Tests/Meds): ORDERS Category Date Time Status CA venous doppler LE LT Stat Y 07/20/24 15:08 Completed Medical Decision Narrative: 34-year-old female presents emergency department with left lower extremity pain, differential diagnose include but not limited to, calf strain, DVT, Garcia's cyst, knee strain/sprain. I discussed patient case with attending physician Dr. Sultana Will obtain left lower extremity duplex ultrasound to rule out DVT, patient has numerous risk factors and is Wells criteria positive. Patient's left lower extremity duplex ultrasound was negative per I and the attending physician read. Patient cleared to be discharged home to self-care, she has no other acute signs or symptoms, no chest pain, no shortness of breath, has remained hemodynamically stable without her time in the emergency department this is most likely a calf strain,/Garcia's cyst. Recommend follow-up with PCP as directed, strict ED return precautions given. Commend NSAIDs and other anti-inflammatory medications as well as rest ice and elevation for pain. Patient voiced understand agreement current treatment plan/discharge plan. I was consulted by the TING, and we discussed the complexity of the problems being addressed. I approved the treatment and management plan for this patient's care in the Emergency Department, thus performing a substantive portion of the medical decision making. Andrew Sultana MD Critical Care <BREANNE Villarreal - Last Filed: 07/20/24 16:13> Critical Care Time Critical Care Time: No
--- NOTE | 2024-07-20 15:08 | CA_ITS ---
FINAL REPORT TECHNIQUE: Ultrasound images of the deep venous system were obtained from the left groin to the calf veins. CLINICAL HISTORY: Left lower extremity pain, swelling, history of endocarditis FINDINGS: The deep venous system is normally compressible. Normal flow is identified. IMPRESSION: No evidence of left lower extremity DVT. Reviewed, Interpreted and Dictated by Romaine Guerrero MD Transcribed by Marquita Cervantes Authenticated and [facility]
--- NOTE | 2024-07-20 15:12 | PC.NURSE ---
staff aware of doppler order
[2024-07-20 16:20] VITALS: BP 123/87; PULSE 61; RESP 18; TEMP 36.6; O2SAT 97
== END 2024-07-20 16:20 | disposition home or self-care (01) ==
PROVIDERS: Emergency Provider Emergency Medicine; PCP Nurse Practitioner Family
DX: S86.212A Strain of muscle(s) and tendon(s) of anterior muscle group at lower leg level, left leg, initial encounter (principal); Z95.3 Presence of xenogenic heart valve; X58.XXXA Exposure to other specified factors, initial encounter; Y92.9 Unspecified place or not applicable
CPT/HCPCS: 93971; 99284

== ENCOUNTER 2024-08-02 15:17 | Emergency (ER) | payer MEDICAID, SELFPAY ==
[2024-08-02 15:52] VITALS: BP 130/73; PULSE 62; RESP 18; TEMP 36.9; O2SAT 97; BMI 33.7
--- NOTE | 2024-08-02 16:14 | EXP.UTC ---
Discharge Plan Disposition Patient Disposition: Home, Self-Care Condition: Good Prescriptions Prescriptions: New azithromycin [Zithromax] 250 mg tablet 250 mg PO UD DOSE PK Qty: 6 0RF Rx Instructions: Take two (2) tablets today, then one (1) tablet days #2 thru #5 methylprednisolone 4 mg Tablets,Dose Pack 4 mg PO DIRECTED 6 Days Qty: 21 0RF Rx Instructions: Take 1 pack as directed for 6 days [id number]-[id number]-[id number] [Bromfed DM] 2-30-10 mg/5 mL Syrup 5 ml PO Q6H PRN (Reason: Cough) Qty: 240 0RF No Action methadone 10 mg/5 mL solution 100 mg PO DAILY Rx Instructions: CONFIRMED DOSE WITH [place] [id number] WITH PRUDENCE MELENDEZ LPN. LAST DOSE WAS 08/02/24 IN OFFICE. furosemide 20 mg tablet 20 mg PO DAILY aspirin 81 mg Tablet,Delayed Release (Dr/Ec) 81 mg PO DAILY pantoprazole 40 mg Tablet,Delayed Release (Dr/Ec) 40 mg PO DAILY Qty: 0 0RF propranolol 20 mg Tablet 10 mg PO BID Qty: 0 0RF vancomycin-diluent combo no.1 1.75 gram/350 mL Piggyback 1.75 g IV Q12H Qty: 0 0RF Referrals Follow up/Referrals: Provider,Referral, MD [Primary Care Provider] - See instructions Activity Restrictions/Add. Instructions Additional Instructions/Restrictions: Drink plenty of fluids. Take tylenol or ibuprofen for pain or fever. Take the medications as directed. Follow up with your regular doctor. GO TO THE ER FOR ANY WORSENING SYMPTOMS Clinical Impressions Clinical Impression: Pharyngitis, Acute viral syndrome Instructions Patient Instructions: Sore Throat, DI for Pharyngitis/Tonsillopharyngitis -- Adult, DI for Viral Syndrome Print Language Print Language: Tamazight Discharge ED Provider: Marcell Hernandez [facility] General Stated complaint: body aches,fever,chills Mode of Arrival: Ambulatory Source of Information: Patient Time Seen by Provider: 08/02/24 15:41 Description of Symptoms (Recalled from Triage Doc. 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 05/12/22 08/03/24 furosemide 20 mg tablet 20 mg PO DAILY 08/02/24 08/03/24 aspirin 81 mg tablet,delayed 81 mg PO DAILY 08/03/24 08/03/24 release Previous Rx's ?Medication ?Instructions ?Recorded azithromycin 250 mg tablet 250 mg PO UD DOSE PK #6 tabs 08/02/24 (Zithromax) nltgqtktyccbimr-bessruevdwpvfkc-AY 5 ml PO Q6H PRN Cough #240 mL 08/02/24 2 mg-30 mg-10 mg/5 mL oral syrup (Bromfed DM) methylprednisolone 4 mg tablets in 4 mg PO DIRECTED 6 days #21 tabs 08/02/24 a dose pack pantoprazole 40 mg tablet,delayed 40 mg PO DAILY #0 tabs 08/08/24 release propranolol 20 mg tablet 10 mg (1/2 x 20 mg) PO BID #0 tabs 08/08/24 vancomycin 1.75 gram/350 mL in 1.75 g (350 mL) IV Q12H #0 mL 08/08/24 diluent combination IV piggyback Allergies Allergy/AdvReac Type Severity Reaction Status Date / Time amoxicillin [From Augmentin] Allergy Rash Verified 08/02/24 15:56 clavulanic acid Allergy Rash Verified 08/02/24 15:56 [From Augmentin] Sulfa (Sulfonamide Allergy Rash Verified 08/02/24 15:56 Antibiotics) Worker's Comp Is this a Worker's Comp case?: No [facility] Disclaimer: The information contained in this section may have been updated after the patient was seen, as this information can be updated by other users. Medical History (Updated 08/12/24 @ 00:00 by Tone Cotton) Lung nodule SIRS (systemic inflammatory response syndrome) Fever Acute viral syndrome Strain of left calf muscle Pharyngitis URI (upper respiratory infection) Abnormal electrocardiogram [ECG] [EKG] Sinus tachycardia Facial rash Urgency of micturition Viral syndrome Cough History of bacterial endocarditis Kidney calculi Depression Asthma Impetigo Cellulitis Impetigo Abdominal pain Moderate tricuspid regurgitation Dyspnea History of drug use Tobacco use Sinus bradycardia Surgical History (Updated 08/12/24 @ 00:00 by Tone Cotton) Hx laparoscopic cholecystectomy Hx of right heart catheterization Tricuspid valve replaced Family History Other No significant family history Social History Smoking Status: Current every day smoker tobacco type: cigarettes packs per day: 1 alcohol intake: never substance use type: former substance user and heroin current occupational status: other Travel in the last 8 weeks: Inside the [facility] ROS Obtained: Yes All systems reviewed & no additional complaints except as documented Constitutional Constitutional: Reports chills and Reports fever(s) Eyes Eyes: Denies eye discharge ENT Ears, Nose, Mouth, and Throat: Reports as per HPI Cardiovascular Cardiovascular: Denies chest pain Respiratory Respiratory: Denies chest congestion and Reports cough Gastrointestinal Gastrointestingal: Reports nausea; Denies abdominal pain, constipation, cramping, diarrhea or vomiting Musculoskeletal Musculoskeletal: Denies arthralgias Integumentary/Breasts Skin/Breast: Denies rash Neurologic Neurologic: Denies paresthesias Physical Exam General General appearance: alert and in no apparent distress Head Head exam: atraumatic, normocephalic and normal inspection Eye Eye exam: Present normal appearance, PERRL and EOMI ENT ENT exam: Present mucous membranes moist and normal external ear exam Expanded ENT Exam TM/Canal exam: Bilateral TM: erythema and bulging Nose exam: Absent sinus tenderness Mouth exam: Present normal external inspection; Absent drooling Teeth exam: Present normal inspection Throat exam: Present tonsillar erythema, tonsillomegaly and tonsillar exudate Neck Neck exam: Present normal inspection, full ROM and trachea midline; Absent tenderness, meningismus or lymphadenopathy Chest Chest inspection: Present normal inspection and symmetric chest wall rise; Absent tenderness Respiratory Respiratory exam: Present normal lung sounds bilaterally; Absent respiratory distress, wheezes, stridor or accessory muscle use Cardiovascular Cardiovascular exam: Present regular rate and normal rhythm; Absent systolic murmur or diastolic murmur Abdominal Exam Abdominal exam: Present soft and normal bowel sounds; Absent distention, tenderness, guarding, rebound or rigidity Extremities Exam Extremities exam: Present normal inspection and normal capillary refill; Absent calf tenderness Back Exam Back exam: Present normal inspection and full ROM; Absent tenderness, CVA tenderness (R) or CVA tenderness (L) Neurological Exam Neurological exam: Present alert, oriented X3 and CN II-XII intact Psychiatric Psychiatric exam: Present normal affect and normal mood Skin Skin exam: Present warm, dry, intact and normal color Medical Decision Making Medical Records Medical records reviewed: No I reviewed the patient's medical records. Cory Inquiry Pt receiving controlled substance: No Vital Signs: 08/02/24 15:52 Temperature 98.5 F Temperature Source Oral Pulse Rate [Left Brachial] 62 Respiratory Rate 18 Blood Pressure [Left Arm] 130/73 Blood Pressure Mean [Left Arm] 92 02 Sat by Pulse Oximetry 97 Lab Data Lab results reviewed: Yes I reviewed the patient's lab results.
[2024-08-02 16:27] VITALS: BP 130/73; PULSE 62; RESP 18; TEMP 36.9
== END 2024-08-02 16:28 | disposition home or self-care (01) ==
PROVIDERS: Emergency Provider Nurse Practitioner Family
DX: J02.9 Acute pharyngitis, unspecified (principal); R50.9 Fever, unspecified; R11.0 Nausea; B34.9 Viral infection, unspecified
CPT/HCPCS: 99212; 99214; G0463

== ENCOUNTER 2024-08-03 09:59 | Inpatient (IN) | payer MEDICAID, SELFPAY ==
[2024-08-03] VITALS (10 sets, daily range): BP systolic 94–131; BP diastolic 47–76; PULSE 63–113; RESP 13–24; TEMP 36.6–37.1; O2SAT 90–98; BMI 30.4; BMI 33.7
--- NOTE | 2024-08-03 10:08 | ECG_ITS ---
APPROVED REPORT Exam: Resting ECG HR:108 bpm ECG Measurements Heart Rate 108 AXES SD 151 P 89 QRSd 85 QRS 53 QT 274 T 74 QTc 338 Conclusion SINUS TACHYCARDIA WITH OCCASIONAL VENTRICULAR PREMATURE COMPLEXES RIGHT ATRIAL ENLARGEMENT [0.3mV P-WAVE] LEFT ATRIAL ENLARGEMENT [-0.15mV P-WAVE IN V1/V2] POSSIBLE RIGHT VENTRICULAR CONDUCTION DELAY [RSR (QR) IN V1/V2] SEPTAL MYOCARDIAL INFARCTION , OF INDETERMINATE AGE [40+ ms Q WAVE IN V1/V2] ABNORMAL ECG Motion artifact Electronically signed by : PAULINE VILLEGAS, 08/03/2024 17:04:20
--- NOTE | 2024-08-03 10:15 | CT_ITS ---
FINAL REPORT TECHNIQUE: Then section axial CT images of the chest were obtained with contrast. Three-D reformatted images were also obtained.This study was performed with techniques to keep radiation doses as low as reasonably achievable (ALARA). Individualized dose reduction techniques using automated exposure control or adjustment of mA and/or kV according to the patient's size were employed. CLINICAL HISTORY: tachy, SOA, h/o endocarditis COMPARISON: None FINDINGS: There is motion throughout, and a small subsegmental branches of the pulmonary arteries are not well-visualized. The patient has undergone a prior midline sternotomy. There is no evidence of pulmonary embolism. There is no evidence of thoracic aortic aneurysm or dissection. There is no evidence of mediastinal or hilar mass or adenopathy. Mild atelectasis is present. There is a 6 mm right upper lobe nodule, noncalcified, best seen on image #45 of series 5. No localized inflammatory process is seen within the lungs. Limited images of the upper abdomen reveal a prior cholecystectomy. IMPRESSION: No evidence of pulmonary embolism. 6 mm right upper lobe nodule as described, recommend 6-month follow-up LDCT for further evaluation. Reviewed, Interpreted and Dictated by Josesito Ceballos III, MD Transcribed by Autumn Gomez Authenticated and [facility]
[2024-08-03 10:31] LABS: Coronavirus 19, PCR Not Detected (NotDetected); Influenza A, PCR Not Detected (NotDetected); Influenza B, PCR Not Detected (NotDetected)
[2024-08-03] MEDS: ACETAMINOPHEN 1,000MG/100ML VIAL 1000 MG IV (10:36)
[2024-08-03] MEDS: KETOROLAC 30MG/ML VIAL 15 MG IV (10:36)
[2024-08-03] MEDS: LACTATED RINGERS 1000ML 1,000 ML 999 ML IV (10:36)
--- NOTE | 2024-08-03 10:38 | ED_ITS ---
Discharge Plan Disposition Patient Disposition: Admitted Condition: Good Clinical Impressions Clinical Impression: Hypokalemia, Pre-syncope, Fever, SIRS (systemic inflammatory response syndrome), Lung nodule, Hyperthyroidism Discharge ED Provider: Brianda Ledesma General Adult HPI General Chief complaint: Weakness Stated complaint: Weakness Time Seen by Provider: 08/03/24 10:07 Mode of Arrival: EMS Source of Information: Patient, EMS and Medical Record Limitations: No Limitations Description of Symptoms (Recalled from ER Triage Doc. by RN): Pt c/o feeling sick for a while . She has a hx of endocarditis with 3x valve replacements since 2013, same valve replaced d/t leaking . Pt called EMS this morning d/t pre-syncopal episode while in the shower. Fire Dept placed pt on 100% NRB prior to EMS arriving. EMS titrated pt down to 3LPM NC. Room air sat is 98% on arrival to ER. FS 115. Pt reports intermittent undocumented fever. She was at [facility] 1 wk ago and in [facility] yesterday and given ABX that she has not started for a virus I think, but its not covid . Pt also reports her ears were ringing but stopped when given O2. She also reports dizziness when standing and with ambulation. History of Present Illness HPI narrative: This patient is a 34-year-old female with a history of prior IV drug use who has not used in years, tricuspid valve replacement x 3 (2013, 2019, Nov 2023 @ [facility]) for infective endocarditis and most recently for TR, and methadone dependence presenting to the emergency department for evaluation with concern for fevers, chills, lightheadedness, shortness of breath, and presyncope. Patient reports that she started feeling ill 07/28/2024, and she went to an outpatient [facility] and was given Augmentin. She notes that she is allergic to Augmentin as it makes her hands and feet swell, so she took 1 dose, noted swelling, and then did not take anymore. She came to [facility] here 08/02/2024 because she was not feeling any better and was diagnosed with acute viral syndrome. She was prescribed Bromfed, methylprednisolone, and azithromycin, which she states she had not picked up and started taking at this point. She states that today she was trying to take a shower when she nearly passed out. She said that her ear started ringing and she got extremely lightheaded. She also is short of breath and very diaphoretic. EMS notes that fingerstick blood leukosis 115. They noted that she was satting 98% on room air but they placed her on 3 L nasal cannula for symptomatic improvement. She notes that with the night sweats, fevers, and generalized bodyaches this does feel similar to her prior bouts of endocarditis, but she is not sure why she would have endocarditis again because she has not been using. Related Data Home Medications ?Medication ?Instructions ?Recorded ?Confirmed methadone 10 mg/5 mL oral solution 100 mg PO DAILY addiction 05/12/22 08/03/24 furosemide 20 mg tablet 20 mg PO DAILY 08/02/24 08/03/24 aspirin 81 mg tablet,delayed 81 mg PO DAILY 08/03/24 08/03/24 release Previous Rx's ?Medication ?Instructions ?Recorded azithromycin 250 mg tablet 250 mg PO UD DOSE PK #6 tabs 08/02/24 (Zithromax) [id number] 5 ml PO Q6H PRN Cough #240 mL 08/02/24 2 mg-30 mg-10 mg/5 mL oral syrup (Bromfed DM) methylprednisolone 4 mg tablets in 4 mg PO DIRECTED 6 days #21 tabs 08/02/24 a dose pack Allergies Allergy/AdvReac Type Severity Reaction Status Date / Time amoxicillin [From Augmentin] Allergy Rash Verified 08/02/24 15:56 clavulanic acid Allergy Rash Verified 08/02/24 15:56 [From Augmentin] Sulfa (Sulfonamide Allergy Rash Verified 08/02/24 15:56 Antibiotics) [facility] Disclaimer: The information contained in this section may have been updated after the patient was seen, as this information can be updated by other users. Medical History Kidney calculi Depression Asthma Impetigo Cellulitis Impetigo Abdominal pain Moderate tricuspid regurgitation Dyspnea History of drug use Tobacco use Sinus bradycardia Surgical History Hx laparoscopic cholecystectomy Hx of right heart catheterization Tricuspid valve replaced Family History Other No significant family history Social History Smoking Status: Current every day smoker tobacco type: cigarettes packs per day: 1 alcohol intake: never substance use type: former substance user and heroin current occupational status: other Travel in the last 8 weeks: Inside the [place] ROS Obtained: Yes All systems reviewed & no additional complaints except as documented Physical Exam General General appearance: alert Comment: Ill-appearing, pale, diaphoretic Head Head exam: atraumatic and normocephalic Eye Eye exam: Present normal appearance, PERRL and EOMI ENT ENT exam: Present normal exam, normal oropharynx, mucous membranes moist and normal external ear exam Neck Neck exam: Present normal inspection, full ROM and trachea midline; Absent tenderness Chest Chest inspection: Present normal inspection and symmetric chest wall rise; Absent tenderness Respiratory Respiratory exam: Present normal lung sounds bilaterally; Absent respiratory distress, wheezes, stridor or accessory muscle use Cardiovascular Cardiovascular exam: Present normal rhythm and tachycardia Abdominal Exam Abdominal exam: Present soft; Absent distention, tenderness or guarding Extremities Exam Extremities exam: Present normal inspection, full ROM and normal capillary refill; Absent tenderness or edema Back Exam Back exam: Present normal inspection and full ROM; Absent tenderness Neurological Exam Neurological exam: Present alert, oriented X3, CN II-XII intact and normal gait; Absent motor sensory deficit Psychiatric Psychiatric exam: Present normal affect and normal mood Skin Skin exam: Present warm and diaphoresis Medical Decision Making Medical Records Medical records reviewed: Yes I reviewed the patient's medical records. Cory Inquiry Pt receiving controlled substance: No Vital Signs: 08/03/24 09:59 08/03/24 10:30 08/03/24 11:00 Temperature 98.0 F Temperature Source Oral Pulse Rate 99 H 95 H Pulse Rate [Right] 113 H Respiratory Rate 20 18 Blood Pressure 96/73 L 112/66 Blood Pressure [Right Arm] 102/48 L Blood Pressure Mean 72 Blood Pressure Mean [Right Arm] 66 Blood Pressure Source Blood Pressure Source [Right Arm] Automatic Cuff Blood Pressure Position [Right Arm] 02 Sat by Pulse Oximetry 98 93 L 95 Oxygen Delivery Method Room Air Room Air 08/03/24 11:32 08/03/24 12:00 08/03/24 12:30 Temperature Temperature Source Pulse Rate 88 90 94 H Pulse Rate [Right] Respiratory Rate 24 17 13 Blood Pressure 131/76 102/63 L 95/47 L Blood Pressure [Right Arm] Blood Pressure Mean 87 71 63 Blood Pressure Mean [Right Arm] Blood Pressure Source Blood Pressure Source [Right Arm] Blood Pressure Position [Right Arm] 02 Sat by Pulse Oximetry 93 L 93 L 90 L Oxygen Delivery Method 08/03/24 13:00 08/03/24 13:12 Temperature 98.1 F 98.1 F Temperature Source Oral Oral Pulse Rate 75 Pulse Rate [Right] 75 Respiratory Rate 18 18 Blood Pressure 100/60 L Blood Pressure [Right Arm] 100/60 L Blood Pressure Mean Blood Pressure Mean [Right Arm] 73 Blood Pressure Source Automatic Cuff Blood Pressure Source [Right Arm] Automatic Cuff Blood Pressure Position [Right Arm] Supine 02 Sat by Pulse Oximetry 94 L Oxygen Delivery Method Room Air Room Air Lab Data Lab results reviewed: Yes I reviewed the patient's lab results. Lab Results 08/03/24 10:10: WBC 10.0, RBC 4.39, Hgb 12.8, Hct 40.3, MCV 91.8, MCH 29.1, MCHC 31.7 L, RDW 14.3, Plt Count 94 L, MPV 12.1 H, Neut % (Auto) 87.0 H, Lymph % (Auto) 6.5 L, [place] % (Auto) 4.8, Eos % (Auto) 1.2, Baso % (Auto) 0.4, Neut # (Auto) 8.7 H, Lymph # (Auto) 0.7, [place] # (Auto) 0.5, Eos # (Auto) 0.1, Baso # (Auto) 0.0, Total Counted 100, Neutrophils % (Manual) 90 H, Lymphocytes % (Manual) 6 L, Monocytes % (Manual) 4, Platelet Estimate Slight decrease, RBC Morphology Normal, ESR 21 H, Sodium 137, Potassium 2.8 L*, Chloride 103, Carbon Dioxide 28, Anion Gap 8.8, BUN 11, Creatinine 0.90, Estimated Creat Clear 124, Estimated GFR 71, Est GFR ( Amer) 86, Glucose 105 H, Calcium 8.5, Total Bilirubin 1.0, AST 30, ALT 28, Alkaline Phosphatase 146 H, Troponin I < 0.01, C- Reactive Protein 69.8 H, NT-Pro-B Natriuret Pep 2670 H, Total Protein 7.0, Albumin 3.5, Globulin 3.5 H, Albumin/Globulin Ratio 1.0 L, Procalcitonin 1.29, T SH 0.30 L, Thyroxine (T4) 12.4 H, Serum HCG, Qual Negative, SARS-CoV-2 (PCR) Not detected, Influenza A Untype (PCR) Not detected, Influenza Type B (PCR) Not detected 08/03/24 10:30: VBG pH 7.43 H, VBG pCO2 38.6, VBG pO2 75.1 H, VBG HCO3 24.8, VBG Total CO2 25.9, VBG O2 Saturation 95.1 H, VBG Base Excess 0.4, VBG Lactic Acid 1.6 08/03/24 11:38: Urine Color Yellow, Urine Appearance Clear, Urine pH 6.0, Ur Specific [place] <= 1.005, Urine Protein Negative, Urine Glucose (UA) Negative, Urine Ketones Negative, Urine Blood Negative, Urine Nitrate Negative, Urine Bilirubin Negative, Urine Urobilinogen 0.2, Ur Leukocyte Esterase Trace, Urine RBC None, Urine WBC Occasional, Ur Squamous Epith Cells None, Ur Transition Epith Cell Occ, Urine Bacteria Trace 08/03/24 10:10 08/03/24 10:10 Orders (Tests/Meds): ED MEDICATIONS Generic Name Dose Route Start Last Admin Trade Name Freq PRN Reason Stop Dose Admin Acetaminophen 1,000 mg 08/03/24 13:03 08/03/24 13:50 Acetaminophen 325mg Tab PO 09/02/24 13:02 1,000 mg Q6HP PRN Administration Fever or Mild Pain (1-3) Docusate Sodium 100 mg 08/03/24 13:15 08/03/24 13:52 Docusate Sodium 100 Mg Capsule PO 09/02/24 13:14 100 mg DAILY DO Administration Enoxaparin Sodium 40 mg 08/03/24 13:15 08/03/24 13:52 Enoxaparin 40mg/0.4ml Syringe SQ 09/02/24 13:14 40 mg DAILY DO Administration Sodium Chloride 1,000 mls @ 50 mls/hr 08/03/24 13:15 08/03/24 13:50 Sod Chlor 0.9% 1000ml Bag IV 09/02/24 13:14 50 mls/hr .Q20H DO Administration Nicotine 21 mg 08/03/24 13:03 Nicotine 21mg/24hr Patch TD 09/02/24 13:02 DAILYP PRN Nicotine Cravings Ondansetron HCl 4 mg 08/03/24 12:58 Ondansetron 4mg/2ml Vial IV 09/02/24 12:57 Q8HP PRN Nausea Pantoprazole Sodium 40 mg 08/03/24 13:15 08/03/24 13:52 Pantoprazole 40mg Tablet PO 09/02/24 13:14 40 mg DAILY DO Administration Propranolol HCl 10 mg 08/03/24 13:15 08/03/24 13:52 Propranolol 20mg Tab PO 09/02/24 13:14 10 mg BID DO Administration Sodium Chloride 10 ml 08/03/24 13:03 Sodium Chloride 0.9% 10ml Flush Syringe IV 09/02/24 13:02 NEEDED PRN Maintain IV Site Discontinued Medications Generic Name Dose Route Start Last Admin Trade Name Freq PRN Reason Stop Dose Admin Acetaminophen 1,000 mg 08/03/24 10:30 08/03/24 10:36 Acetaminophen 1,000mg/100ml Vial IV 08/03/24 10:31 1,000 mg ONCE ONE Administration Lactated Ringer's 1,000 mls @ 999 mls/hr 08/03/24 10:30 08/03/24 10:36 Lactated Ringer's 1000 Ml Bag IV 08/03/24 11:30 999 mls/hr .Q1H1M ONE Administration Potassium Chloride/Water 100 mls @ 100 mls/hr 08/03/24 10:53 08/03/24 12:31 Potassium Chloride 10meq/100ml Ivpb IV 08/03/24 12:52 100 mls/hr Q1H DO Administration Cefepime HCl 2 gm/ Sodium 100 mls @ 200 mls/hr 08/03/24 12:36 08/03/24 13:01 Chloride IV 08/03/24 13:05 200 mls/hr ONCE ONE Administration Vancomycin/PEG/NADA/Lysine/Water 1.5 gm in 300 mls @ 150 mls/hr 08/03/24 12:45 08/03/24 15:04 Vancomycin 1.5gm/300ml (Peg) Premix IV 08/03/24 14:44 Not Given ONCE ONE Iopamidol 70 ml 08/03/24 11:17 08/03/24 11:18 Iopamidol-370 (76%);100ml Bottle IV 08/03/24 11:18 70 ml ONCE ONE Administration Ketorolac Tromethamine 15 mg 08/03/24 10:30 08/03/24 10:36 Ketorolac 30mg/Ml Vial IV 08/03/24 10:31 15 mg ONCE ONE Administration Methadone HCl 100 mg 08/03/24 12:41 08/03/24 13:02 Methadone 10mg Tablet PO 08/03/24 12:42 100 mg ONCE ONE Administration Miscellaneous 1 each 08/03/24 12:45 Vancomycin Consult Request NOTAPPLIC 09/02/24 12:44 CONSULT [facility] Potassium Chloride 40 meq 08/03/24 10:53 08/03/24 11:10 Potassium Chloride 20meq Tab PO 08/03/24 10:54 40 meq ONCE ONE Administration Sodium Chloride 50 ml 08/03/24 11:17 08/03/24 11:18 0.9 % Sodium Chloride 50 Ml Vial IV 08/03/24 11:18 50 ml ONCE ONE Administration Sodium Chloride 10 ml 08/03/24 11:17 08/03/24 11:18 Sodium Chloride 0.9% 10ml Syr (Rad Only) IV 08/03/24 11:18 10 ml ONCE ONE Administration ORDERS Category Date Time Status CT angio chest PE protocol Stat Cat Scan 08/03/24 10:15 Completed BNP [NT Pro Brain Natriuretic Pep.] Stat Lab 08/03/24 10:10 Completed CBC w/Auto Diff [Complete Blood Count Auto Diff] Stat Lab 08/03/24 10:10 Completed CMP [Comprehensive Metabolic Panel] Stat Lab 08/03/24 10:10 Completed CRP [C-Reactive Protein] Stat Lab 08/03/24 10:10 Completed ESR [Erythrocyte Sedimentation Rate] Stat Lab 08/03/24 10:10 Completed Procalcitonin Stat Lab 08/03/24 10:10 Completed Rapid PCR Covid and Flu A/B Stat Lab 08/03/24 10:10 Completed Serum [HCG Qualitative, Serum] Stat Lab 08/03/24 10:10 Completed T4 (Thyroxine) Stat Lab 08/03/24 10:10 Completed TSH [Thyroid Stimulating Hormone] Stat Lab 08/03/24 10:10 Completed Triiodothyronine (T3) Free Stat Lab 08/03/24 11:30 Received Trop I [Troponin I] Stat Lab 08/03/24 10:10 Completed Troponin I Q3H Lab 08/03/24 13:40 Completed UA [Urinalysis and Microscopic] Stat Lab 08/03/24 11:38 Completed Blood Culture Stat Micro 08/03/24 10:30 Received Urine Culture Stat Micro 08/03/24 11:38 Received VBG [Venous Blood Gas] Stat RT 08/03/24 10:30 Completed ECG Data Tracing #1: I reviewed this ECG and interpreted as documented below: Sinus tachycardia with a ventricular rate of 108 bpm. Motion artifact degrades V1. No acute ST changes concerning for ischemia noted. Right ventricular conduction delay noted. ECG initial impression date: 08/03/24 ECG initial impression time: 10:15 Tracing #2: I reviewed this ECG and interpreted as documented below: Normal sinus rhythm with a ventricular rate of 94 bpm. Incomplete right bundle branch block noted. No acute ST changes concerning for ischemia. ECG initial impression date: 08/03/24 ECG initial impression time: 10:45 Medical Decision Narrative: In summary, this patient is a 34-year-old female presenting to the Emergency Department for evaluation of fevers, chills, body aches, shortness of breath, night sweats. Differential diagnoses considered include but are not limited to endocarditis, sepsis, pneumonia, viral syndrome, urinary tract infection. Ruling out the most morbid conditions drove assessment. It should be noted patient's history includes recurrent endocarditis which may or may not be at goal therapy. This complicates all aspects of care by increasing patient's risk for morbidity. I reviewed patient's past medical records and noted previous cardiology evaluations back in 2022. Since then, patient has had another tricuspid valve replacement. On exam, the patient is ill-appearing, tachycardic, and extremely diaphoretic. Workup included broad lab evaluation to evaluate for infectious, metabolic, cardiac causes as well as CTA of the chest. At this time, concerned that she meet SIRS criteria, but sepsis bolus was not given given her history of heart issues. She is chronically on Lasix at home and I do not want to volume overload her. She was given a liter bolus of IV fluids as well as IV Toradol and acetaminophen for symptomatic improvement. EKG x 2 do not demonstrate any acute changes concerning for ischemia but she is mildly tachycardic. She was found to be very hypokalemic, so IV and oral replacement were ordered. I independently interpreted CT scan prior to the radiologist read and noted no obvious PE. Please see their read for final interpretation. Labs were obtained that demonstrated elevated T4 and low TSH which is concerning for hyperthyroidism. She also was found to have elevated inflammatory markers. I did start her on broad-spectrum antibiotics with concern for infection driving this acute illness, but differential does include thyroid disease. On reassessment, the patient is resting comfortably with improved symptoms and vital signs after IV fluids. Heart rate is now normal. Ultimately, I feel she is appropriate for admission for continued monitoring and IV antibiotics pending blood cultures. I had an interactive discussion with the hospitalist who admitted the patient for further evaluation and management. PROCEDURE NOTE: IV Placement under Ultrasound Guidance Performed by: Brianda Ledesma DO Indication: IV access required. Multiple attempts at peripheral IV placement were made by the nursing staff without success Procedure: The area was prepped in the usual fashion. The left basilic vein was cannulated with a 20 gauge angiocath with use of dynamic ultrasound to identify the vein. The patient tolerated the procedure well. Complications: none Critical Care Critical Care Time Critical Care Time: Yes Attestation: On 08/03/24, the high probability of a clinically significant, sudden or life threatening deterioration of the following system(s) required my full and direct attention, intervention and personal management. The time I documented below is in addition to time spent performing reported procedures but includes the following listed in this critical care notation. Total Time Total Critical Care Time: 35
[2024-08-03 10:41] LABS: Lactate Venous 1.6 mmol/L (0.4-2.0); VBG Base Excess 0.4 mmol/L (-2.4-2.3); VBG HCO3 24.8 mmol/L (23-30); VBG Oxygen Saturation 95.1 % (50-70); VBG PCO2 38.6 mmol/L (35-51); VBG PH 7.43 mmol/L (7.31-7.41); VBG PO2 75.1 mmol/L (28-40); VBG Total CO2 25.9 mmol/L (23-27)
[2024-08-03 10:42] LABS: Basophils % 0.4 % (0.1-2.0); Eosinophils # 0.1 K/mm3 (0.0-0.4); Eosinophils % 1.2 % (0.1-12.0); Hematocrit 40.3 % (37.0-47.0); Hemoglobin 12.8 g/dL (12.2-16.2); Lymphocytes # 0.7 K/mm3 (0.7-4.5); Lymphocytes % 6.5 % (10-50); Mean Corpuscular HGB Conc 31.7 g/dL (31.8-35.4); Mean Corpuscular Hemoglobin 29.1 pg (27.0-31.2); Mean Corpuscular Volume 91.8 fl (81-99); Mean Platelet Volume 12.1 fl (7.4-10.4); Monocytes # 0.5 K/mm3 (0.1-1.0); Monocytes % 4.8 % (1.7-9.3); Neutrophils # 8.7 K/mm3 (1.8-7.8); Platelet Count 94 K/mm3 (142-424); Red Blood Count 4.39 M/mm3 (4.20-5.40); Red Cell Distribution Width 14.3 % (11.5-17.5)
--- NOTE | 2024-08-03 10:43 | ECG_ITS ---
APPROVED REPORT Exam: Resting ECG HR:94 bpm ECG Measurements Heart Rate 94 AXES PA 151 P 78 QRSd 100 QRS 44 QT 432 T 60 QTc 484 Conclusion SINUS RHYTHM POSSIBLE LEFT ATRIAL ENLARGEMENT [-0.1mV P-WAVE IN V1/V2] INCOMPLETE RIGHT BUNDLE BRANCH BLOCK [90+ ms QRS DURATION, TERMINAL R IN V1/V2, 40+ ms S IN I/aVL/V4/V5/V6] PROLONGED QT INTERVAL ABNORMAL ECG Electronically signed by : PAULINE VILLEGAS, 08/03/2024 17:04:03
[2024-08-03 10:45] LABS: MANUAL DIFFERENTIAL MANUAL DIFFERENTIAL (MANUAL DIFF)
[2024-08-03 10:47] LABS: Alanine Aminotransferase 28 U/L (12-78); Albumin Level 3.5 g/dl (3.5-5.0); Alkaline Phosphatase 146 U/L (38-126); Anion Gap 8.8 mEq/L (5-15); Aspartate Amino Transferase 30 U/L (14-36); Blood Urea Nitrogen 11 mg/dl (7-17); Calcium 8.5 mg/dl (8.4-10.2); Carbon Dioxide 28 mmol/L (22.0-30.0); Chloride 103 mmol/L (98-107); Creatinine Clearance Estimated 124 mL/min (50-200); Estimated Glomerular Filt Rate 71 ml/min (>60); GFR (African American) 86 ML/MIN (>60); Globulin 3.5 g/dL (1.3-3.2); Glucose 105 mg/dl (74-100); Sodium 137 mmol/L (136-145)
[2024-08-03 10:51] LABS: Potassium 2.8 mmoL/L (3.5-5.1)
--- NOTE | 2024-08-03 10:51 | PC.NURSE ---
Jeevan from the [facility] called a critical lab value. Pts Potassium is 2.8. and RN aware. CR
[2024-08-03 10:53] LABS: C-Reactive Protein 69.8 mg/L (0-4)
--- NOTE | 2024-08-03 10:53 | PC.NURSE ---
Dr Ledesma notified of critical potassium
[2024-08-03 11:00] LABS: NT Pro Brain Natriuretic Pep. 2670 pg/mL (0-125)
[2024-08-03 11:04] LABS: Troponin I < 0.01 ng/ml (0.00-0.034)
[2024-08-03 11:05] LABS: Procalcitonin 1.29 ng/mL (0.0-2.0); T4 (Thyroxine) 12.4 ug/dl (5.53-11.0)
[2024-08-03 11:08] LABS: HCG Qualitative, Serum Negative (Negative)
[2024-08-03] MEDS: POTASSIUM CHLORIDE 20MEQ TAB 40 MEQ PO (11:10)
[2024-08-03] MEDS: KCl 10mEq/100ml 100 ML 100 MEQ IV ×2 (11:10→12:31)
--- NOTE | 2024-08-03 11:13 | PC.NURSE ---
PT TO CT
[2024-08-03] MEDS: IOPAMIDOL-370 (76%);100ML BOTTLE 70 ML IV (11:18)
[2024-08-03] MEDS: 0.9 % SODIUM CHLORIDE 50 ML VIAL IV (11:18)
[2024-08-03] MEDS: SODIUM CHLORIDE 0.9% 10ML SYR (RAD ONLY) 10 ML IV (11:18)
[2024-08-03 11:38] LABS: Lymphocytes % 6 % (10-50); Monocytes % 4 % (2-9); Neutrophils % 90 % (42-76); Platelet Estimate Slight Decrease; RBC Morphology Normal; Total Cells Counted 100
[2024-08-03 11:43] LABS: Microscopic, Urine URINE MICROSCOPIC (MICROSCOPIC)
[2024-08-03 11:44] LABS: Erythrocyte Sedimentation Rate 21 mm/hr (0-20)
[2024-08-03 11:48] LABS: Appearance,Urine CLEAR (Clear); Bilirubin,Urine Negative (Negative); Blood, Urine Negative (Negative); Color,Urine YELLOW (Yellow); Glucose,Urine (UA) Negative (Negative); Ketones,Urine Negative (Negative); Leukocyte Esterase,Urine TRACE (Negative); Nitrate,Urine Negative (Negative); Protein,Urine Negative (Negative); Specific Gravity, Urine <= 1.005 (1.005-1.030); Urobilinogen,Urine 0.2 EU/dl (0.2)
[2024-08-03 12:14] LABS: Bacteria,Urine Trace /lpf; Transitional Epi Cells,Urine OCC #/lpf (0-3); WBC,Urine Occasional #/hpf (0-3)
--- NOTE | 2024-08-03 12:57 | EXP.HP ---
History of Present Illness *Admission Date: 08/03/24 *Reason for visit:: Weakness *History of present illness: This is a 34-year-old female that presents to [facility] ED for evaluation of generalized weakness over a couple weeks not improving with home care. She describes a significant cardiovascular history with her previous intravenous drug use. She reports 3 tricuspid valve replacements with her most recent in November 2023 at [facility]. She reports no IV drug use since April 2023. Her significant other at bedside characterized as fianc? supports her non-use history over the past year. She is currently on methadone therapy. She is uncertain of QTc monitoring. She does not recall her last echocardiogram. I am accompanied by Mera RN who assists with the history. She describes recent visits to urgent treatment centers for her weakness concerns. Her weakness is characterized as non-room spinning sensation characterized as dizziness with standing, I also get lightheaded with associated shortness of air. She reports intermittent tachycardia. She describes a sensation of almost passing out. She does voice concern with an antibiotic reaction noting that she is allergic to Augmentin but was prescribed this medication with a recent [facility] evaluation. In the ED she had 2 ECGs with the second identifying QTc 484 MS. Her potassium was 2.8 and her magnesium is pending at the time of admission. Her TSH was 0.3 and her total T4 was 12.4. Free T4 was normal at 1.79. She reports that she is already feeling better with fluid resuscitation. [facility] Medical History Kidney calculi Depression Asthma Impetigo Cellulitis Impetigo Abdominal pain Moderate tricuspid regurgitation Dyspnea History of drug use Tobacco use Sinus bradycardia Surgical History Hx laparoscopic cholecystectomy Hx of right heart catheterization Tricuspid valve replaced Family History Other No significant family history Social History Smoking Status: Current every day smoker tobacco type: cigarettes packs per day: 1 alcohol intake: never substance use type: former substance user and heroin current occupational status: other Travel in the last 8 weeks: Inside the [place] Review of Systems Review of Systems Review of systems:: pertinent systems reviewed and negative unless documented below Meds Home Medications and Allergies Home Medications ?Medication ?Instructions ?Recorded ?Confirmed ?Type methadone 10 mg/5 mL oral solution 100 mg PO DAILY addiction 05/12/22 08/03/24 History azithromycin 250 mg tablet 250 mg PO UD DOSE PK #6 tabs 08/02/24 08/03/24 Rx (Zithromax) vfaevqbfmniltid-nmsqlibzrxcuzuk-CF 5 ml PO Q6H PRN Cough #240 mL 08/02/24 08/03/24 Rx 2 mg-30 mg-10 mg/5 mL oral syrup (Bromfed DM) furosemide 20 mg tablet 20 mg PO DAILY 08/02/24 08/03/24 History methylprednisolone 4 mg tablets in 4 mg PO DIRECTED 6 days #21 tabs 08/02/24 08/03/24 Rx a dose pack aspirin 81 mg tablet,delayed 81 mg PO DAILY 08/03/24 08/03/24 History release New Prescriptions to Start Prescriptions: Allergies Allergy/AdvReac Type Severity Reaction Status Date / Time amoxicillin [From Augmentin] Allergy Rash Verified 08/02/24 15:56 clavulanic acid Allergy Rash Verified 08/02/24 15:56 [From Augmentin] Sulfa (Sulfonamide Allergy Rash Verified 08/02/24 15:56 Antibiotics) Exam Data for Last 24 hours Vital signs and Labs for Last 24 Hours: Temp Pulse Resp BP Pulse Ox O2 Del Method 98.0 F 99 H 18 96/73 L 93 L Room Air 08/03/24 09:59 08/03/24 10:30 08/03/24 10:30 08/03/24 10:30 08/03/24 10:30 08/03/24 10:30 Laboratory Results - last 24 hr 08/03/24 10:10: WBC 10.0, RBC 4.39, Hgb 12.8, Hct 40.3, MCV 91.8, MCH 29.1, MCHC 31.7 L, RDW 14.3, Plt Count 94 L, MPV 12.1 H, Neut % (Auto) 87.0 H, Lymph % (Auto) 6.5 L, [place] % (Auto) 4.8, Eos % (Auto) 1.2, Baso % (Auto) 0.4, Neut # (Auto) 8.7 H, Lymph # (Auto) 0.7, [place] # (Auto) 0.5, Eos # (Auto) 0.1, Baso # (Auto) 0.0, Total Counted 100, Neutrophils % (Manual) 90 H, Lymphocytes % (Manual) 6 L, Monocytes % (Manual) 4, Platelet Estimate Slight decrease, RBC Morphology Normal, ESR 21 H, Sodium 137, Potassium 2.8 L*, Chloride 103, Carbon Dioxide 28, Anion Gap 8.8, BUN 11, Creatinine 0.90, Estimated Creat Clear 124, Estimated GFR 71, Est GFR ( Amer) 86, Glucose 105 H, Calcium 8.5, Total Bilirubin 1.0, AST 30, ALT 28, Alkaline Phosphatase 146 H, Troponin I < 0.01, C-Reactive Protein 69.8 H, NT-Pro-B Natriuret Pep 2670 H, Total Protein 7.0, Albumin 3.5, Globulin 3.5 H, Albumin/Globulin Ratio 1.0 L, Procalcitonin 1.29, TSH 0.30 L, Thyroxine (T4) 12.4 H, Serum HCG, Qual Negative, SARS-CoV-2 (PCR) Not detected, Influenza A Untype (PCR) Not detected, Influenza Type B (PCR) Not detected 08/03/24 10:30: VBG pH 7.43 H, VBG pCO2 38.6, VBG pO2 75.1 H, VBG HCO3 24.8, VBG Total CO2 25.9, VBG O2 Saturation 95.1 H, VBG Base Excess 0.4, VBG Lactic Acid 1.6 08/03/24 11:38: Urine Color Yellow, Urine Appearance Clear, Urine pH 6.0, Ur Specific [place] <= 1.005, Urine Protein Negative, Urine Glucose (UA) Negative, Urine Ketones Negative, Urine Blood Negative, Urine Nitrate Negative, Urine Bilirubin Negative, Urine Urobilinogen 0.2, Ur Leukocyte Esterase Trace, Urine RBC None, Urine WBC Occasional, Ur Squamous Epith Cells None, Ur Transition Epith Cell Occ, Urine Bacteria Trace I & O for Last 24 hours: Intake & Output 07/31/24 08/01/24 08/02/24 08/03/24 23:59 23:59 23:59 23:59 Weight 90.718 kg Constitutional Constitutional: no acute distress, obese, chronically ill appearing and cooperative *Routine HEENT Exam Head: Present normocephalic and atraumatic Eye: Present EOMI and PERRL ENT: Present mucous membranes moist *Routine Neck Exam Neck: Present full ROM and trachea midline; Absent JVD, lymphadenopathy, thyromegaly or tenderness *Routine Respiratory Exam Respiratory: Present rhonchi, normal respiratory effort and symmetric chest movement *Routine Cardiovascular Exam Cardiovascular: Present RRR and murmur *Routine Abdominal Exam Abdominal: Present soft and normoactive bowel sounds; Absent tenderness *Routine Rectal Exam Rectal:: deferred *Routine Genitalia Exam Genitalia:: deferred *Routine Extremities Exam Extremities: Present full ROM and pulses intact; Absent clubbing or edema *Routine Skin Exam Skin: Present intact; Absent rash *Routine Neurological Exam Neurological: Present alert, oriented X3, moving all extremities, vision grossly intact, hearing grossly intact and normal speech; Absent sensory deficit or motor deficit Routine Psychiatric Exam Psychiatric: Present normal affect, cooperative and anxious Assessment and Plan *Assessment and plan (1) Hyperthyroidism, subclinical: Status: Acute Category: Medical Code(s): E05.90 - Thyrotoxicosis, unspecified without thyrotoxic crisis or storm (2) Pre-syncope: Status: Acute Category: Medical Code(s): R55 - Syncope and collapse (3) Methadone dependence: Status: Acute Category: Medical Code(s): F11.20 - Opioid dependence, uncomplicated Plan This is a 34-year-old female with a complicated history of intravenous drug use with last reported use April 2023. She reports 3 tricuspid valve replacements most recently November 2023 at [facility]. She is on chronic methadone therapy. Problems addressed as follows: Subclinical hyperthyroidism Telemetry monitoring Thyroid ultrasound Low TSH with normal free T4 and T3 studies pending Propranolol therapy Outpatient follow-up with PCP and endocrinology Presyncope History of tricuspid valve replacement x 3 Chronically on loop diuretic therapy Echocardiogram pending Fluid resuscitation Methadone dependence ED ECG with QTc 484 MS Telemetry monitoring Trending QTc Replacement therapy Patient adamantly denies IV drug use The patient will be admitted to observation status with trending labs and requested imaging studies. Expected day of discharge over the next day or 2 pending evaluations.
--- NOTE | 2024-08-03 12:59 | PC.NURSE ---
REPORT GIVEN TO MARLEY TURCIOS
[2024-08-03] MEDS: CEFEPIME HCL 2 GM in 0.9 % SODIUM CHLORIDE 100 ML IV ×2 (13:01→23:32)
[2024-08-03] MEDS: METHADONE 10MG TABLET 100 MG PO (13:02)
--- NOTE | 2024-08-03 13:03 | CA_ITS ---
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, RVS Ht: 5 ft 8 in Wt: 200lbs BSA: 2.04 BP: 96/73 mmHg Indications: TVR-bioprosthetic, Smoker, HOUSE, Asthma 2D Dimensions Left Atrium 3.69 cm LA Volume 52.60 mL LA Volume Index 25.296222 mL/m2 (M/F) 16-34 M-Mode Dimensions RVDd 1.68 cm (0.9-2.6) LA Diam 4.24 cm (1.9-4.0) LVDd 5.35 cm (3.5-5.7) LVDs 3.36 cm (3.5-5.7) IVSd 1.01 cm (0.6-1.1) PWd 0.81 cm (0.6-1.1) EF (Teich) 66.70% EPSs 0.67 cm FS 37.20% EDV (Teich) 138.30 mL TAPSE 1.75 (<1.7) ESV (Teich) 46.10 mL LV Diastology E Decel Time 267 (160-240 msec) E/A Ratio 1.72 MED A' 7.30 cm/s LAT A' 5.80 cm/s Aortic Valve CYNDI Index 1.24 cm2/m2 AoV Peak Brad. 136.0 (50-130 cm/s) AO Peak GR. 7.40 mmHg AO Mean GR. 3.70 (<5 mmHg) AO VTI 29.2 (18-25 cm) CYNDI (VTI) 2.59 (2.5-4.5 cm2) Mitral Valve MV A Velocity 67.0 (40-130 cm/s) E/A Ratio 1.72 MV Mean Gr. 3.90 (<2mmHg) MV PHT 160.0 ms Pulmonary Valve PV Peak Velocity 98.0 (50-150 cm/s) VA End VMAX 155.0 cm/s Tricuspid Valve TV Vmax 109.50 (30-100 cm/s) Left Ventricle The left ventricle is normal size. The left ventricular systolic function is normal. The left ventricular ejection fraction is within the normal range. There is increased LV wall thickness. Diastolic function is indeterminate. There is normal LV segmental wall motion. LVEF is 55%. Right Ventricle Right ventricle is moderately dilated. Right ventricle is mildly hypokinetic. Atria The left atrium size is normal. Right atrium is moderately dilated. There is no Doppler evidence of interatrial shunt. Aortic Valve The aortic valve opens well. There is no aortic valvular stenosis. No aortic regurgitation is present. Mitral Valve The mitral valve is normal in structure. No evidence of mitral valve stenosis. Trace mitral regurgitation. Tricuspid Valve s/p bioprosthetic TVR. The prosthesis is well-seated. There is no tricuspid valve stenosis. Mean TV gradient 4 mmHg. Mild to moderate central tricuspid regurgitation. Pulmonic Valve The pulmonary valve is normal in structure. Mild pulmonic regurgitation. Great Vessels The aortic root is normal in size. And the ascending aorta is not well-visualized. IVC is normal in size and collapses >50% with inspiration. Pericardium There is no pericardial effusion. Other Information Study Quality: Technically Difficult Conclusion Technically difficult study due to poor acoustic windows. Normal LV systolic function. Moderate RV dilation with mild reduction in RV function. Moderate RA dilation. s/p bioprosthetic TVR. Mean TV gradient of 4 mmHg. Mild to moderate TR. Electronically signed by : Rubina Grimes MD 08/06/2024 20:23:43
--- NOTE | 2024-08-03 13:03 | US_ITS ---
FINAL REPORT CLINICAL HISTORY: Hyperthyroidism FINDINGS: Sonographic images of the thyroid gland were obtained. The right thyroid lobe measures 52 mm. in length. The left thyroid lobe measures 53 mm. in length. The thyroid isthmus measures 2 mm. There is a mildly heterogeneous echotexture. A 16 x 8 x 8 mm spongiform nodule is seen in the right thyroid lobe consistent with a TI-RADS 1 nodule. No other mass or nodule is identified. IMPRESSION: Somewhat enlarged thyroid with mildly heterogeneous echotexture. No worrisome mass or nodule identified. Authenticated and ERN
[2024-08-03] MEDS: ACETAMINOPHEN 325MG TAB 1000 MG PO ×2 (13:50→20:45)
[2024-08-03] MEDS: 0.9 % SODIUM CHLORIDE 1000ML 1,000 ML 50 ML IV (13:50)
[2024-08-03] MEDS: PROPRANOLOL 20MG TAB 10 MG PO (13:52)
[2024-08-03] MEDS: DOCUSATE SODIUM 100 MG CAPSULE PO (13:52)
[2024-08-03] MEDS: ENOXAPARIN 40MG/0.4ML SYRINGE 40 MG SQ (13:52)
[2024-08-03] MEDS: PANTOPRAZOLE 40MG TABLET 40 MG PO (13:52)
[2024-08-03 14:31] LABS: Free T4 (Free Thyroxine) 1.79 ng/dl (0.78-2.19)
[2024-08-03 14:38] LABS: Troponin I < 0.01 ng/ml (0.00-0.034)
--- NOTE | 2024-08-03 14:38 | PC.NURSE ---
pt off floor to radiology
[2024-08-03 16:33] LABS: Vitamin B12 349 pg/mL (239-931)
[2024-08-03] MEDS: IBUPROFEN 600 MG TABLET PO (17:49)
[2024-08-03 18:44] LABS: Iron 38 ug/dL (37-170)
[2024-08-03 18:55] LABS: Total Iron Binding Capacity 322 ug/dL (265-497)
[2024-08-03 19:21] LABS: Anion Gap 8.7 mEq/L (5-15); Blood Urea Nitrogen 14 mg/dl (7-17); Calcium 7.8 mg/dl (8.4-10.2); Carbon Dioxide 24 mmol/L (22.0-30.0); Chloride 109 mmol/L (98-107); Creatinine Clearance Estimated 177 mL/min (50-200); Estimated Glomerular Filt Rate 95 ml/min (>60); GFR (African American) 115 ML/MIN (>60); Glucose 138 mg/dl (74-100); Magnesium 1.6 mg/dl (1.6-2.3); Potassium 3.7 mmoL/L (3.5-5.1); Sodium 138 mmol/L (136-145)
[2024-08-03] MEDS: VANCOMYCIN CONSULT REQUEST 1 EACH NOTAPPLIC (23:34)
[2024-08-04] VITALS (8 sets, daily range): BP systolic 82–113; BP diastolic 54–76; PULSE 57–73; RESP 16–18; TEMP 36.3–37.1; O2SAT 96–99; BMI 35.4
[2024-08-04] MEDS: VANCOMYCIN HCL 2,000 MG in 0.9 % SODIUM CHLORIDE 500 ML 166 MG IV (00:03)
--- NOTE | 2024-08-04 06:24 | PC.NURSE ---
+ BC overnight - ABx started, provider notified. spouse at bedside, no issues.
[2024-08-04] MEDS: ONDANSETRON 4MG/2ML VIAL 4 MG IV (07:24)
[2024-08-04] MEDS: IBUPROFEN 600 MG TABLET PO ×2 (07:25→17:11)
[2024-08-04 07:50] LABS: Basophils % 0.5 % (0.1-2.0); Eosinophils # 0.1 K/mm3 (0.0-0.4); Eosinophils % 2.6 % (0.1-12.0); Hematocrit 35.6 % (37.0-47.0); Lymphocytes # 0.7 K/mm3 (0.7-4.5); Lymphocytes % 17.1 % (10-50); Mean Corpuscular Hemoglobin 28.3 pg (27.0-31.2); Mean Corpuscular Volume 94.5 fl (81-99); Mean Platelet Volume 12.4 fl (7.4-10.4); Monocytes # 0.3 K/mm3 (0.1-1.0); Monocytes % 7.1 % (1.7-9.3); Neutrophils # 3.1 K/mm3 (1.8-7.8); Neutrophils % 72.7 % (37.0-80.0); Red Blood Count 3.77 M/mm3 (4.20-5.40); Red Cell Distribution Width 14.4 % (11.5-17.5); White Blood Count 4.2 K/mm3 (4.8-10.8)
[2024-08-04 07:53] LABS: Platelet Count 51 K/mm3 (142-424)
[2024-08-04 07:55] LABS: Hemoglobin 10.2 g/dL (12.2-16.2)
[2024-08-04 08:01] LABS: Chloride 109 mmol/L (98-107); Potassium 3.1 mmoL/L (3.5-5.1); Sodium 138 mmol/L (136-145)
[2024-08-04 08:04] LABS: Anion Gap 5.1 mEq/L (5-15); Blood Urea Nitrogen 14 mg/dl (7-17); Calcium 7.5 mg/dl (8.4-10.2); Carbon Dioxide 27 mmol/L (22.0-30.0); Creatinine Clearance Estimated 217 mL/min (50-200); Estimated Glomerular Filt Rate 113 ml/min (>60); GFR (African American) 137 ML/MIN (>60); Glucose 120 mg/dl (74-100); Magnesium 1.7 mg/dl (1.6-2.3)
[2024-08-04] MEDS: PROPRANOLOL 20MG TAB 10 MG PO ×2 (08:09→20:48)
[2024-08-04] MEDS: DOCUSATE SODIUM 100 MG CAPSULE PO (08:10)
[2024-08-04] MEDS: PANTOPRAZOLE 40MG TABLET 40 MG PO (08:10)
[2024-08-04 08:20] LABS: Triiodothyronine (T3) Free 2.7 pg/mL (2.0-4.4)
[2024-08-04 08:29] LABS: Benzodiazepines Screen,Urine Negative ng/ml (<200)
[2024-08-04 08:30] LABS: Amphetamine/Metha Screen,Urine Negative ng/ml (<1000); Barbiturates Screen,Urine Negative ng/ml (<200)
[2024-08-04 08:31] LABS: Cannabinoid Screen,Urine Negative ng/ml (<50)
[2024-08-04 08:32] LABS: Cocaine Screen,Urine Negative ng/ml (<300); Methadone Screen,Urine Positive ng/ml (<300)
[2024-08-04 08:33] LABS: Opiate Screen,Urine Negative ng/ml (<300)
[2024-08-04 08:34] LABS: Phencyclidine Screen,Urine Negative ng/ml (<25)
--- NOTE | 2024-08-04 08:35 | EXP.PHA.CONS ---
Pharmacy Consult Date: 08/04/24 Time: 08:35 Referring provider: DR. ANDREW Reason for Consult:: VANCOMYCIN DOSING Allergies Allergy/AdvReac Type Severity Reaction Status Date / Time amoxicillin [From Augmentin] Allergy Rash Verified 08/02/24 15:56 clavulanic acid Allergy Rash Verified 08/02/24 15:56 [From Augmentin] Sulfa (Sulfonamide Allergy Rash Verified 08/02/24 15:56 Antibiotics) Home Medications ?Medication ?Instructions ?Recorded ?Confirmed ?Type methadone 10 mg/5 mL oral solution 100 mg PO DAILY addiction 05/12/22 08/03/24 History azithromycin 250 mg tablet 250 mg PO UD DOSE PK #6 tabs 08/02/24 08/03/24 Rx (Zithromax) fydphprcgabaeqg-toecqsbidzneukr-AM 5 ml PO Q6H PRN Cough #240 mL 08/02/24 08/03/24 Rx 2 mg-30 mg-10 mg/5 mL oral syrup (Bromfed DM) furosemide 20 mg tablet 20 mg PO DAILY 08/02/24 08/03/24 History methylprednisolone 4 mg tablets in 4 mg PO DIRECTED 6 days #21 tabs 08/02/24 08/03/24 Rx a dose pack aspirin 81 mg tablet,delayed 81 mg PO DAILY 08/03/24 08/03/24 History release New Prescriptions to Start Prescriptions: Height: 1.73 m Weight: 105.857 kg Laboratory Results:: Laboratory Results - last 24 hr 08/03/24 10:10: WBC 10.0, RBC 4.39, Hgb 12.8, Hct 40.3, MCV 91.8, MCH 29.1, MCHC 31.7 L, RDW 14.3, Plt Count 94 L, MPV 12.1 H, Neut % (Auto) 87.0 H, Lymph % (Auto) 6.5 L, [place] % (Auto) 4.8, Eos % (Auto) 1.2, Baso % (Auto) 0.4, Neut # (Auto) 8.7 H, Lymph # (Auto) 0.7, [place] # (Auto) 0.5, Eos # (Auto) 0.1, Baso # (Auto) 0.0, Total Counted 100, Neutrophils % (Manual) 90 H, Lymphocytes % (Manual) 6 L, Monocytes % (Manual) 4, Platelet Estimate Slight decrease, RBC Morphology Normal, ESR 21 H, Sodium 137, Potassium 2.8 L*, Chloride 103, Carbon Dioxide 28, Anion Gap 8.8, BUN 11, Creatinine 0.90, Estimated Creat Clear 124, Estimated GFR 71, Est GFR ( Amer) 86, Glucose 105 H, Calcium 8.5, Total Bilirubin 1.0, AST 30, ALT 28, Alkaline Phosphatase 146 H, Troponin I < 0.01, C-Reactive Protein 69.8 H, NT-Pro-B Natriuret Pep 2670 H, Total Protein 7.0, Albumin 3.5, Globulin 3.5 H, Albumin/Globulin Ratio 1.0 L, Procalcitonin 1.29, TSH 0.30 L, Thyroxine (T4) 12.4 H, Serum HCG, Qual Negative, SARS-CoV-2 (PCR) Not detected, Influenza A Untype (PCR) Not detected, Influenza Type B (PCR) Not detected 08/03/24 10:30: VBG pH 7.43 H, VBG pCO2 38.6, VBG pO2 75.1 H, VBG HCO3 24.8, VBG Total CO2 25.9, VBG O2 Saturation 95.1 H, VBG Base Excess 0.4, VBG Lactic Acid 1.6 08/03/24 11:30: Free T3 2.7 08/03/24 11:38: Urine Color Yellow, Urine Appearance Clear, Urine pH 6.0, Ur Specific [place] <= 1.005, Urine Protein Negative, Urine Glucose (UA) Negative, Urine Ketones Negative, Urine Blood Negative, Urine Nitrate Negative, Urine Bilirubin Negative, Urine Urobilinogen 0.2, Ur Leukocyte Esterase Trace, Urine RBC None, Urine WBC Occasional, Ur Squamous Epith Cells None, Ur Transition Epith Cell Occ, Urine Bacteria Trace 08/03/24 13:30: Iron 38, TIBC 322, Iron Saturation 11.54967 L, Vitamin B12 349, Free T4 1.79 08/03/24 13:40: Troponin I < 0.01 08/03/24 18:50: Sodium 138, Potassium 3.7 D, Chloride 109 H, Carbon Dioxide 24, Anion Gap 8.7, BUN 14 D, Creatinine 0.70 D, Estimated Creat Clear 177, Estimated GFR 95, Est GFR ( Amer) 115 D, Glucose 138 H D, Calcium 7.8 L, Magnesium 1.6 08/04/24 07:40: WBC 4.2 L D, RBC 3.77 L, Hgb 10.2 L D, Hct 35.6 L, MCV 94.5, MCH 28.3, MCHC 30.0 L, RDW 14.4, Plt Count 51 L D, MPV 12.4 H, Neut % (Auto) 72.7, Lymph % (Auto) 17.1, [place] % (Auto) 7.1, Eos % (Auto) 2.6, Baso % (Auto) 0.5, Neut # (Auto) 3.1, Lymph # (Auto) 0.7, [place] # (Auto) 0.3, Eos # (Auto) 0.1, Baso # (Auto) 0.0, Sodium 138, Potassium 3.1 L, Chloride 109 H, Carbon Dioxide 27, Anion Gap 5.1, BUN 14, Creatinine 0.60, Estimated Creat Clear 217, Estimated GFR 113, Est GFR ( Amer) 137, Glucose 120 H, Calcium 7.5 L, Magnesium 1.7 Medical History: Medical History (Updated 08/03/24 @ 16:58 by Brianda Ledesma DO) Kidney calculi Depression Asthma Impetigo Cellulitis Impetigo Abdominal pain Moderate tricuspid regurgitation Dyspnea History of drug use Tobacco use Sinus bradycardia Assessment and Plan Assessment and plan all Dx Assessment and Plan for all problems:: Pharmacokinetic dosing service Objective: Diagnosis: Relevant medical/social history: Cultures and sensitivities: Other labs: Assessment: IBW (kg): 64.13 Dosing wt(kg): 105 Estimated Creatinine clearance (ml/min): 130 Clearance limited to 130 ml/min to reduce risk of overdosing. CRCL method: Cockcroft and Gault using ibw(default). Drug selected: Vancomycin Loading dose (mg): 0 Vd (liters): 84.0 (factor used: 0.8 L/kg) Jose R (hr-1): 0.112 Half life (hrs): 6.19 Recommended dose: 1750 mg Interval: 8 hrs Infusion time (hrs): 2.0 Predicted peak (mcg/mL): 31.5 Predicted trough (mcg/mL): 16.09 Total body weight is being used for vancomycin dosing. Recommendations: Give Vancomycin 1750 mg q 8 hrs with an expected Cpeak of 31.5 mcg/ml and an expected Ctrough of 16.09 mcg/ml ----Vanco only - ignore for aminoglycosides----- CLvanco= 9.41 L/hr AUC 0-24 /NICHELLE Data: NICHELLE 0.5 mcg/mL: AUC/NICHELLE: 1115.8 NICHELLE 1.0 mcg/mL: AUC/NICHELLE: 557.9 --------- NICHELLE 1.5 mcg/mL: AUC/NICHELLE: 371.9 NICHELLE 2.0 mcg/mL: AUC/NICHELLE: 279.0
[2024-08-04] MEDS: VANCOMYCIN/WATER FOR INJ (PEG) 1.75 GM/350 ML PIGGYBACK IV ×2 (10:55→17:17)
[2024-08-04] MEDS: POTASSIUM CHLORIDE 20MEQ TAB 40 MEQ PO (10:55)
[2024-08-04] MEDS: UBROGEPANT 50MG TABLET 100 MG PO (10:55)
[2024-08-04] MEDS: METHADONE 10MG TABLET 100 MG PO (11:03)
[2024-08-04] MEDS: CEFEPIME HCL 2 GM in 0.9 % SODIUM CHLORIDE 100 ML IV (13:24)
--- NOTE | 2024-08-04 13:42 | PC.NURSE ---
Patient a&ox4 and vss. Patient c/o headache this shift, treated with ubrelvy and patient states that her pain is much better. patient tolerating IV abx.
--- NOTE | 2024-08-04 15:41 | EXP.ACUTE.PN ---
Subjective *Date: 08/04/24 *Time: 15:41 Interval history: Patient feeling better today. Afebrile. No nausea or vomiting. Weakness showing some improvement. Overnight, blood cultures returned positive. Antibiotics broadened. Denies any chest pain or shortness of breath. Medical Exam Vital signs and Labs for Last 24 Hours: Vital Signs Temp Pulse Resp BP Pulse Ox O2 Del Method 08/04/24 12:00 97.8 F 57 L 16 112/76 97 Room Air 08/04/24 07:51 97.4 F L 61 16 98/61 L 97 Room Air 08/04/24 06:20 Room Air 08/04/24 05:00 Room Air 08/04/24 04:00 97.6 F 65 16 113/65 97 Room Air 08/04/24 03:00 Room Air 08/04/24 01:00 Room Air 08/04/24 00:00 98.7 F 67 16 93/54 L 96 Room Air 08/03/24 23:00 Room Air 08/03/24 21:00 Room Air 08/03/24 20:00 Room Air 08/03/24 20:00 98.8 F 66 16 94/47 L 97 Room Air 08/03/24 18:35 Room Air 08/03/24 17:00 Room Air 08/03/24 16:00 98 F 63 16 104/63 L 95 Intake and Output 08/03/24 08/04/24 08/04/24 23:59 07:59 15:59 Intake Total 600 / 1670 1340 / 1590 250 / 1590 Output Total 0 / 0 0 / 0 0 / 0 Balance 600 / 1670 1340 / 1590 250 / 1590 Intake: Intake, Oral Amount 600 / 840 510 / 760 250 / 760 Intake, Other Amount 30 / 30 Intake, Total IV Amount 800 / 800 0.9 % Sodium Chloride 1000ML 1, 200 / 200 000 ml @ 50 mls/hr IV .Q20H [facility] Rx#:[id number] Cefepime HCl 2 gm In 0.9 % 100 / 100 Sodium Chloride 100 ml @ 200 mls/hr IV ONCE ONE Rx#:[id number] Vancomycin HCl 2,000 mg In 0.9 500 / 500 % Sodium Chloride 500 ml @ 166 mls/hr IV ONCE ONE Rx#:[id number] Output: Output, Urine Amount 0 / 0 0 / 0 0 / 0 Other: Intake, Other Source Saline Solution Number of Unmeasured Voids 1 1 1 Weight 105.857 kg 105.857 kg Patient Weight 08/04/24 23:59 Weight 105.857 kg Laboratory Results - last 24 hr 08/03/24 11:30: Free T3 2.7 08/03/24 13:30: Iron 38, TIBC 322, Iron Saturation 11.67375 L, Vitamin B12 349 08/03/24 18:50: Sodium 138, Potassium 3.7 D, Chloride 109 H, Carbon Dioxide 24, Anion Gap 8.7, BUN 14 D, Creatinine 0.70 D, Estimated Creat Clear 177, Estimated GFR 95, Est GFR ( Amer) 115 D, Glucose 138 H D, Calcium 7.8 L, Magnesium 1.6 08/03/24 23:38: Urine Opiates Screen Negative, Urine Methadone Screen Positive H, Ur Barbituates Screen Negative, Ur Phencyclidine Scrn Negative, Ur Amphetamines Screen Negative, U Benzodiazepines Scrn Negative, Urine Cocaine Screen Negative, U Marijuana (THC) Screen Negative 08/04/24 07:40: WBC 4.2 L D, RBC 3.77 L, Hgb 10.2 L D, Hct 35.6 L, MCV 94.5, MCH 28.3, MCHC 30.0 L, RDW 14.4, Plt Count 51 L D, MPV 12.4 H, Neut % (Auto) 72.7, Lymph % (Auto) 17.1, [place] % (Auto) 7.1, Eos % (Auto) 2.6, Baso % (Auto) 0.5, Neut # (Auto) 3.1, Lymph # (Auto) 0.7, [place] # (Auto) 0.3, Eos # (Auto) 0.1, Baso # (Auto) 0.0, Sodium 138, Potassium 3.1 L, Chloride 109 H, Carbon Dioxide 27, Anion Gap 5.1, BUN 14, Creatinine 0.60, Estimated Creat Clear 217, Estimated GFR 113, Est GFR ( Amer) 137, Glucose 120 H, Calcium 7.5 L, Magnesium 1.7 I & O for Labs for Last 24 Hours: Intake & Output 08/01/24 08/02/24 08/03/24 08/04/24 23:59 23:59 23:59 23:59 Intake Total 600 / 1670 1590 / 1590 Output Total 0 / 0 0 / 0 Balance 600 / 1670 1590 / 1590 Weight 101.179 kg 105.857 kg Microbiology Reports for the Last 24 Hours: Microbiology 08/03/24 10:30 Blood Blood Culture - Preliminary 08/03/24 10:10 Blood Blood Culture - Preliminary Constitutional: Present no acute distress and obese Head: Present atraumatic and normocephalic ENT: Present normal exam Respiratory: Present normal respiratory effort; Absent respiratory distress, rhonchi, stridor, wheezes or crackles Cardiac: Present Reg Rate and Rhythm GI: Present soft and normal bowel sounds; Absent distention or tenderness Extremities: Present normal inspection and full ROM Comment:: No [place] lesions or [place] nodes Skin: Present intact; Absent erythema, petechiae, wounds or rash Neuro: Present Grossly Intact, alert, awake, oriented x 3 and moves all extremities Assessment and Plan *Assessment and plan (1) Bacteremia: Status: Acute Category: Medical Code(s): R78.81 - Bacteremia (2) Hyperthyroidism, subclinical: Category: Medical Code(s): E05.90 - Thyrotoxicosis, unspecified without thyrotoxic crisis or storm (3) Pre-syncope: Status: Acute Category: Medical Code(s): R55 - Syncope and collapse (4) Methadone dependence: Status: Acute Category: Medical Code(s): F11.20 - Opioid dependence, uncomplicated Plan This is a 34-year-old female with a complicated history of intravenous drug use with last reported use April 2023. She reports 3 tricuspid valve replacements most recently November 2023 at [facility]. Previously at [facility] in [facility] and . On chronic methadone therapy. Blood cultures returned positive overnight. No fever overnight. Antibiotics broadened with repeat cultures obtained. Continues to require inpatient management. Problems addressed as follows: Bacteremia -All 4 blood cultures positive for staph species. Continue on ceftriaxone and vancomycin. Repeat blood cultures obtained today. -Has 1 major and 1 minor Rodriguez's criteria for endocarditis. Echo obtained, awaiting formal read. -Further management pending repeat culture results. Will consider transfer to higher level of care if increased concern for endocarditis - Inflammatory markers with CRP and ESR ordered for the morning Subclinical hyperthyroidism Telemetry monitoring Thyroid ultrasound showing enlarged thyroid but no discrete nodules. Low TSH with normal free T4 and T3 studies pending Propranolol therapy Outpatient follow-up with PCP and endocrinology Presyncope History of tricuspid valve replacement x 3 Chronically on loop diuretic therapy Echocardiogram obtained, formal read pending. Labs this morning showing normal white count at 4.0, hemoglobin 10.2. Sodium 138, potassium 3.1 with magnesium 1.7. Will replace orally today. Kidney function normal with BUN 14, creatinine 0.6. Repeat CBC, CMP, magnesium ordered for the morning. Methadone dependence ED ECG with QTc 484 MS Resume methadone 100 mg daily Full code Regular diet
[2024-08-04] MEDS: 0.9 % SODIUM CHLORIDE 1000ML 1,000 ML 50 ML IV (15:45)
[2024-08-04] MEDS: ACETAMINOPHEN 500MG TAB 1000 MG PO (17:11)
[2024-08-05] MEDS: CEFEPIME HCL 2 GM in 0.9 % SODIUM CHLORIDE 100 ML IV ×2 (01:25→13:56)
[2024-08-05] MEDS: VANCOMYCIN/WATER FOR INJ (PEG) 1.75 GM/350 ML PIGGYBACK IV (01:58)
--- NOTE | 2024-08-05 03:15 | PC.NURSE ---
Addendum entered by Yasmine Cristina RN 08/05/24 04:38: Late Entry: vancomycin infusion was also resumed at 03:59. Addendum entered by Yasmine Cristina RN 08/05/24 03:59: Reevaluated patient at this time. Patient voiced that she was feeling a little better and more calm. Patient denies further chills and is no longer trembling. Patient's skin color was noticed to return to pink (baseline). Patient stated that she feels mild, generalized soreness post-episode. Patient was given hot tea to sip on per request. Phenergan infusion has finished. Patient is resting supine in bed with respirations even and unlabored at this time. Blood pressure and heart rate decreased to patient's baseline. Significant other at bedside comforting patient. Original Note: Entered patient's room at around 03:00, patient was in obvious distress, was found thrashing in bed, and stated that she could not breath in. Patient's skin color was noticed to be slightly philip. Patient complained of chills and was visually trembling all over. Vancomycin infusion was stopped. Sadaf COMBUSTION ANALYST was paged and vital signs were taken. Acute changes were noted. Patient stated that she has had this episode happen before. An order for Phenergan 12.5 was requested to be given verbally by Sadaf KAPLAN. Patient will be reevaluated after administration.
[2024-08-05] MEDS: PROMETHAZINE HCL 25MG/ML 1ML VIAL 12.5 MG IV (03:28)
[2024-08-05] MEDS: SODIUM CHLORIDE 0.9% 25ML BAG 25 ML IV ×2 (03:28→13:02)
[2024-08-05 04:00] VITALS: BP 113/68; PULSE 86; RESP 16; TEMP 37.1; O2SAT 90; BMI 35.4
--- NOTE | 2024-08-05 05:27 | PC.NURSE ---
Addendum entered by Yasmine Cristina RN 08/05/24 06:52: Patient declined to get up to the chair today to eat her breakfast. However, patient stated that she was feeling a little bit better this morning since her episode and receiving Phenergan per JAN. Patient appears very fatigued. Original Note: Patient is alert and oriented x4. Patient was observed to have eyes closed, respirations even and unlabored, and no apparent distress throughout the majority of the shift. Patient did have an acute change around 03:00 this shift; her episode was addressed (see prior note). Patient was given Phenergan IV per JAN and she reported satisfactory relief. Patient is currently resting in bed at this time and is returning to her baseline. Patient's significant other remained at bedside throughout the night. Patient's lung sounds were clear and bowel sounds were hypoactive upon auscultation. Patient is ambulatory and tolerates it well. Patient was given her scheduled medications per MAR this shift and currently has normal saline 0.9% running at 50 mL/hr. Patient does not have any further complaints at this time. Call light within reach.
[2024-08-05 07:50] LABS: Erythrocyte Sedimentation Rate 46 mm/hr (0-20)
[2024-08-05 07:55] LABS: Basophils % 0.5 % (0.1-2.0); Eosinophils # 0.1 K/mm3 (0.0-0.4); Eosinophils % 2.2 % (0.1-12.0); Hematocrit 34.3 % (37.0-47.0); Hemoglobin 10.5 g/dL (12.2-16.2); Lymphocytes % 18.3 % (10-50); Mean Corpuscular HGB Conc 30.5 g/dL (31.8-35.4); Mean Corpuscular Hemoglobin 28.4 pg (27.0-31.2); Mean Platelet Volume 14.2 fl (7.4-10.4); Monocytes # 0.5 K/mm3 (0.1-1.0); Red Blood Count 3.69 M/mm3 (4.20-5.40)
[2024-08-05 08:00] VITALS: BP 113/68; PULSE 79; RESP 19; TEMP 37.1; O2SAT 93
[2024-08-05] MEDS: ACETAMINOPHEN 500MG TAB 1000 MG PO (08:00)
[2024-08-05 08:10] LABS: Platelet Count 48 K/mm3 (142-424)
[2024-08-05 08:58] LABS: Alanine Aminotransferase 19 U/L (12-78); Albumin Level 2.8 g/dl (3.5-5.0); Albumin/Globulin Ratio 0.9 (1.1-1.8); Alkaline Phosphatase 106 U/L (38-126); Anion Gap 4.7 mEq/L (5-15); Aspartate Amino Transferase 35 U/L (14-36); Bilirubin,Total 0.4 mg/dl (0.2-1.3); Blood Urea Nitrogen 11 mg/dl (7-17); Calcium 7.6 mg/dl (8.4-10.2); Carbon Dioxide 25 mmol/L (22.0-30.0); Chloride 110 mmol/L (98-107); Creatinine Clearance Estimated 217 mL/min (50-200); Estimated Glomerular Filt Rate 113 ml/min (>60); GFR (African American) 137 ML/MIN (>60); Globulin 3.1 g/dL (1.3-3.2); Glucose 99 mg/dl (74-100); Magnesium 1.7 mg/dl (1.6-2.3); Potassium 3.7 mmoL/L (3.5-5.1); Sodium 136 mmol/L (136-145); Total Protein,Serum 5.9 g/dl (6.3-8.2)
[2024-08-05 09:07] LABS: Anion Gap 6.5 mEq/L (5-15); Blood Urea Nitrogen 11 mg/dl (7-17); Calcium 7.6 mg/dl (8.4-10.2); Carbon Dioxide 24 mmol/L (22.0-30.0); Chloride 109 mmol/L (98-107); Creatinine Clearance Estimated 217 mL/min (50-200); Estimated Glomerular Filt Rate 113 ml/min (>60); GFR (African American) 137 ML/MIN (>60); Glucose 134 mg/dl (74-100); Potassium 3.5 mmoL/L (3.5-5.1); Sodium 136 mmol/L (136-145)
[2024-08-05 09:12] LABS: C-Reactive Protein 90.9 mg/L (0-4)
[2024-08-05 09:14] LABS: Vancomycin,Trough 24.4 ug/mL (5.0-10.0)
[2024-08-05] MEDS: METHADONE 10MG TABLET 100 MG PO (09:37)
[2024-08-05] MEDS: PANTOPRAZOLE 40MG TABLET 40 MG PO (09:38)
[2024-08-05] MEDS: PROPRANOLOL 20MG TAB 10 MG PO ×2 (09:38→20:08)
[2024-08-05] MEDS: DOCUSATE SODIUM 100 MG CAPSULE PO (09:38)
--- NOTE | 2024-08-05 09:50 | EXP.PHA.CONS ---
Pharmacy Consult Date: 08/05/24 Time: 09:50 Referring provider: DR. ANDREW Reason for Consult:: VANCOMYCIN DOSE CHANGE Allergies Allergy/AdvReac Type Severity Reaction Status Date / Time amoxicillin [From Augmentin] Allergy Rash Verified 08/02/24 15:56 clavulanic acid Allergy Rash Verified 08/02/24 15:56 [From Augmentin] Sulfa (Sulfonamide Allergy Rash Verified 08/02/24 15:56 Antibiotics) Home Medications ?Medication ?Instructions ?Recorded ?Confirmed ?Type methadone 10 mg/5 mL oral solution 100 mg PO DAILY addiction 05/12/22 08/03/24 History azithromycin 250 mg tablet 250 mg PO UD DOSE PK #6 tabs 08/02/24 08/03/24 Rx (Zithromax) rricpwvankbzzdi-uhrfhxktgktsjed-QT 5 ml PO Q6H PRN Cough #240 mL 08/02/24 08/03/24 Rx 2 mg-30 mg-10 mg/5 mL oral syrup (Bromfed DM) furosemide 20 mg tablet 20 mg PO DAILY 08/02/24 08/03/24 History methylprednisolone 4 mg tablets in 4 mg PO DIRECTED 6 days #21 tabs 08/02/24 08/03/24 Rx a dose pack aspirin 81 mg tablet,delayed 81 mg PO DAILY 08/03/24 08/03/24 History release New Prescriptions to Start Prescriptions: Height: 1.73 m Weight: 105.859 kg Laboratory Results:: Laboratory Results - last 24 hr 08/05/24 06:30: WBC 6.0 D, RBC 3.69 L, Hgb 10.5 L, Hct 34.3 L, MCV 93.0, MCH 28.4, MCHC 30.5 L, RDW 15.0, Plt Count 48 L*, MPV 14.2 H, Neut % (Auto) 71.0, Lymph % (Auto) 18.3, [place] % (Auto) 8.0, Eos % (Auto) 2.2, Baso % (Auto) 0.5, Neut # (Auto) 4.0, Lymph # (Auto) 1.0, [place] # (Auto) 0.5, Eos # (Auto) 0.1, Baso # (Auto) 0.0, ESR 46 H 08/05/24 08:19: Vancomycin Trough 24.4 H 08/05/24 : Sodium 136 08/05/24 : Sodium 136, Potassium 3.5 08/05/24 : Potassium 3.7, Chloride 109 H 08/05/24 : Chloride 110 H, Carbon Dioxide 24 08/05/24 : Carbon Dioxide 25, Anion Gap 6.5 08/05/24 : Anion Gap 4.7 L, BUN 11 08/05/24 : BUN 11, Creatinine 0.60 08/05/24 : Creatinine 0.60, Estimated Creat Clear 217 08/05/24 : Estimated Creat Clear 217, Estimated GFR 113 08/05/24 : Estimated GFR 113, Est GFR ( Amer) 137 08/05/24 : Est GFR ( Amer) 137, Glucose 134 H 08/05/24 : Glucose 99, Calcium 7.6 L 08/05/24 : Calcium 7.6 L, Magnesium 1.7, Total Bilirubin 0.4, AST 35, ALT 19 D, Alkaline Phosphatase 106, C-Reactive Protein 90.9 H D, Total Protein 5.9 L, Albumin 2.8 L, Globulin 3.1, Albumin/Globulin Ratio 0.9 L Medical History: Medical History (Updated 08/04/24 @ 15:42 by Marcell Grider MD) Kidney calculi Depression Asthma Impetigo Cellulitis Impetigo Abdominal pain Moderate tricuspid regurgitation Dyspnea History of drug use Tobacco use Sinus bradycardia Assessment and Plan Assessment and plan all Dx Assessment and Plan for all problems:: RECOMMEND CHANGING VANCOMYCIN DOSE TO VANCOMYCIN 1750 MG Q12H TO RESTART AT 2100 TONIGHT. VANCOMYCIN TROUGH LEVEL WAS 24.4 MCG/ML THIS AM.
[2024-08-05 11:58] VITALS: BP 109/56; PULSE 68; RESP 20; TEMP 36.7; O2SAT 94
[2024-08-05] MEDS: PROMETHAZINE HCL 25MG/ML 1ML VIAL 25 MG IV (13:02)
[2024-08-05 16:00] VITALS: BP 119/68; PULSE 70; RESP 20; TEMP 37.2; O2SAT 90
--- NOTE | 2024-08-05 18:03 | PC.NURSE ---
Pt alert and oriented x4. On room air. Pt ambulating independently. Pt had a panic attack episode this shift, was notified and Phenergan 25mg IV was ordered and effective for pt. Pt also c/o headache today but was given Tylenol per MAR and it was effective. Pt has been resting in bed most of shift. family at bedside.
--- NOTE | 2024-08-05 19:24 | PEERSUPPORT ---
Peer Support Note Patient Information Patient Information: DOS:08/04/2024 Peer Support Initial contact PS discloses personal experiences with [facility] emphasizing recovery building rapport with pt for understanding of purpose. Pt is receptive to PS. PS offers any support during her admission to [facility] and affirms periodic check-ins. PT agrees and expresses gratitude.
--- NOTE | 2024-08-05 19:46 | P.PN_ITS ---
Subjective *Date: 08/05/24 *Time: 19:46 Interval history: Patient had a panic attack overnight, responded well to Phenergan. Another happened this morning after rounds. Denies any fever, nausea, vomiting, chest pain. No active bleeding. Tolerating p.o. intake. Medical Exam Vital signs and Labs for Last 24 Hours: Vital Signs Temp Pulse Resp BP Pulse Ox O2 Del Method 08/05/24 18:43 Room Air 08/05/24 17:00 Room Air 08/05/24 16:00 98.9 F 70 20 119/68 90 L Room Air 08/05/24 14:58 Room Air 08/05/24 13:00 Room Air 08/05/24 11:58 98.0 F 68 20 109/56 L 94 L 08/05/24 11:00 Room Air 08/05/24 09:00 Room Air 08/05/24 08:00 Room Air 08/05/24 08:00 98.8 F 79 19 113/68 93 L Room Air 08/05/24 06:55 Room Air 08/05/24 05:00 Room Air 08/05/24 04:00 98.8 F 86 16 113/68 90 L Room Air 08/05/24 03:00 Room Air 08/05/24 01:00 Room Air 08/04/24 23:58 97.9 F 73 16 112/69 96 Room Air 08/04/24 23:00 Room Air 08/04/24 21:00 Room Air 08/04/24 20:00 67 16 99 Room Air 08/04/24 19:58 97.9 F 67 16 82/59 L 99 Room Air Intake and Output 08/05/24 08/05/24 08/05/24 07:59 15:59 23:59 Intake Total 958 / 1708 480 / 1708 270 / 1708 Output Total 0 / 0 0 / 0 Balance 958 / 1708 480 / 1708 270 / 1708 Intake: Intake, Oral Amount 120 / 870 480 / 870 270 / 870 Infusion Intake 838 / 838 0.9 % Sodium Chloride 1000ML 1, 388 / 388 000 ml @ 50 mls/hr IV .Q20H [facility] Rx#:[id number] Cefepime HCl 2 gm In 0.9 % 100 / 100 Sodium Chloride 100 ml @ 200 mls/hr IV ONCE ONE Rx#:[id number] Vancomycin/Water For Inj (Peg) 350 / 350 1.75 gm In 350 ml @ 175 mls/hr IV Q8H [facility] Rx#:[id number] Output: Output, Urine Amount 0 / 0 0 / 0 Other: Number of Unmeasured Voids 1 1 Weight 105.859 kg 105.859 kg Patient Weight 08/05/24 23:59 Weight 105.859 kg Laboratory Results - last 24 hr 08/05/24 06:30: WBC 6.0 D, RBC 3.69 L, Hgb 10.5 L, Hct 34.3 L, MCV 93.0, MCH 28.4, MCHC 30.5 L, RDW 15.0, Plt Count 48 L*, MPV 14.2 H, Neut % (Auto) 71.0, Lymph % (Auto) 18.3, [place] % (Auto) 8.0, Eos % (Auto) 2.2, Baso % (Auto) 0.5, Neut # (Auto) 4.0, Lymph # (Auto) 1.0, [place] # (Auto) 0.5, Eos # (Auto) 0.1, Baso # (Auto) 0.0, ESR 46 H 08/05/24 08:19: Vancomycin Trough 24.4 H 08/05/24 : Sodium 136 08/05/24 : Sodium 136, Potassium 3.5 08/05/24 : Potassium 3.7, Chloride 109 H 08/05/24 : Chloride 110 H, Carbon Dioxide 24 08/05/24 : Carbon Dioxide 25, Anion Gap 6.5 08/05/24 : Anion Gap 4.7 L, BUN 11 08/05/24 : BUN 11, Creatinine 0.60 08/05/24 : Creatinine 0.60, Estimated Creat Clear 217 08/05/24 : Estimated Creat Clear 217, Estimated GFR 113 08/05/24 : Estimated GFR 113, Est GFR ( Amer) 137 08/05/24 : Est GFR ( Amer) 137, Glucose 134 H 08/05/24 : Glucose 99, Calcium 7.6 L 08/05/24 : Calcium 7.6 L, Magnesium 1.7, Total Bilirubin 0.4, AST 35, ALT 19 D, Alkaline Phosphatase 106, C-Reactive Protein 90.9 H D, Total Protein 5.9 L, Albumin 2.8 L, Globulin 3.1, Albumin/Globulin Ratio 0.9 L I & O for Labs for Last 24 Hours: Intake & Output 08/02/24 08/03/24 08/04/24 08/05/24 23:59 23:59 23:59 23:59 Intake Total 600 / 1670 1890 / 2848 1708 / 1708 Output Total 0 / 0 0 / 0 0 / 0 Balance 600 / 1670 1890 / 2848 1708 / 1708 Weight 101.179 kg 105.857 kg 105.859 kg Microbiology Reports for the Last 24 Hours: Microbiology 08/03/24 15:19 Nose MRSA Culture - Final 08/03/24 11:38 Urine,Clean Catch Urine Culture - Final 08/03/24 10:30 Blood Blood Culture - Final Staphylococcus aureus 08/03/24 10:10 Blood Blood Culture - Final Staphylococcus aureus Constitutional: Present no acute distress and obese Head: Present atraumatic and normocephalic ENT: Present normal exam Respiratory: Present normal respiratory effort; Absent respiratory distress, rhonchi, stridor, wheezes or crackles Cardiac: Present Reg Rate and Rhythm GI: Present soft and normal bowel sounds; Absent distention or tenderness Extremities: Present normal inspection and full ROM Comment:: No [place] lesions or [place] nodes Skin: Present intact; Absent erythema, petechiae, wounds or rash Neuro: Present Grossly Intact, alert, awake, oriented x 3 and moves all extremities Assessment and Plan *Assessment and plan (1) Bacteremia: Status: Acute Category: Medical Code(s): R78.81 - Bacteremia (2) Hyperthyroidism, subclinical: Category: Medical Code(s): E05.90 - Thyrotoxicosis, unspecified without thyrotoxic crisis or storm (3) Pre-syncope: Status: Acute Category: Medical Code(s): R55 - Syncope and collapse (4) Methadone dependence: Status: Acute Category: Medical Code(s): F11.20 - Opioid dependence, uncomplicated (5) Presence of prosthetic heart valve: Status: Acute Category: Medical Code(s): Z95.2 - Presence of prosthetic heart valve Plan This is a 34-year-old female with a complicated history of intravenous drug use with last reported use April 2023. She reports 3 tricuspid valve replacements most recently November 2023 at [facility]. Previously at [place] in [facility] and . On chronic methadone therapy. Blood cultures MSSA positive from admission, repeat cultures remain negative at >24hrs. No fever overnight. Continues to require inpatient management. Problems addressed as follows: Bacteremia Presence of prosthetic heart valve -All 4 blood cultures positive for staph species, sensitivities show MSSA. Continuing cefepime 2 g twice daily and vancomycin IV. Repeat blood cultures pending. Will de-escalate if they show negative at 48 hours. -[facility] consulted for transfer due to prosthetic heart valve and bacteremia. Patient accepted but on wait list. 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 Echo obtained, awaiting formal read. -White count normal at 6. Platelets low at 48 but stable compared to yesterday 51. ESR elevated at 46, CRP 90 which is increasing. Repeat CBC, CMP, magnesium, CRP and ESR ordered for the morning. Subclinical hyperthyroidism Telemetry monitoring Thyroid ultrasound showing enlarged thyroid but no discrete nodules. Low TSH with normal free T4 and T3 studies pending Continue propranolol 10 mg twice daily. Outpatient follow-up with PCP and endocrinology Presyncope History of tricuspid valve replacement x 3 Chronically on loop diuretic therapy Echocardiogram obtained, formal read pending. Kidney function electrolytes normal, potassium 3.7. BUN 11, creatinine 0.6. Liver enzymes normal with AST 35, ALT 19, alk phos 106 Methadone dependence ED ECG with QTc 484 MS continue methadone 100 mg daily Full code Regular diet
[2024-08-05 20:00] VITALS: BP 118/70; PULSE 68; RESP 18; TEMP 36.9; O2SAT 95
[2024-08-05] MEDS: 0.9 % SODIUM CHLORIDE 1000ML 1,000 ML 50 ML IV (20:08)
--- NOTE | 2024-08-05 20:35 | PC.NURSE ---
Addendum entered by Yasmine Cristina RN 08/06/24 04:20: Update: Dr Fortune and Cristal ROACH from ED arrived to the floor to take labs and insert an IV. A 20G in the right antecubital was inserted via ultrasound-guide. Sadaf KAPLAN was paged and informed of regain of intravenous access. Harriet from [facility] pharmacy was also paged at this time to reconfigure missed vancomycin and cefepime dosage times for this shift. Patient's infusion of normal saline fluids will be resumed. Labs were sent. Addendum entered by Yasmine Cristina RN 08/05/24 23:42: Update: at this time, Sadaf KAPLAN informed me [id number] that one of the ER physicians will come up to the floor at their convenience to perform an IV via ultrasound-guide for the patient. Addendum entered by Yasmine Cristina RN 08/05/24 23:11: Update: no call at this time (23:11) and no IV access thus far. Addendum entered by Yasmine Cristina RN 08/05/24 20:54: Update: IV access was unsuccessful without ultrasound and not attempted. Cristal stated that an additional ED provider will arrive later this shift to the ER, and will give me a call around 23:00 if one of them is willing to come up to the floor to perform an ultrasound-guided IV insertion for the patient. Sadaf BRIDGES AND BUILDINGS SUPERVISOR was paged at this time and stated that he is willing to attempt to stick the patient once. Concerns stated by Sadaf were for multiple attempts at sticking due to patient's current low platelet counts. Vancomycin and fluids are still on hold at this time. Sadaf is at bedside. Original Note: Attempted to infuse vancomycin at 20:08. Patient's ultrasound-guided IV line was confirmed to be occluded with clots in the catheter. Patient states that she is a hard stick and usually needs to have an ultrasound performed on her for IV insertions. IV line would not flush, nor efficiently give blood return. Vancomycin infusion is on hold thus far due to lacking IV access. ED was paged at this time; I spoke with Cristal RN in ER to request a staff member to perform an ultrasound-guided IV. She stated that no staff members were present to perform an ultrasound guide, but Cristal agreed to attempt to insert an IV at this time on the floor.
[2024-08-06] VITALS: BP 118/70; PULSE 68; RESP 18; TEMP 36.9; O2SAT 95
--- NOTE | 2024-08-06 02:13 | PC.NURSE ---
reached out at this time for an update about the patient's status, as well as the most recent vital sign readings.
[2024-08-06 04:00] VITALS: BP 110/69; PULSE 65; RESP 16; TEMP 37; O2SAT 95; BMI 36.1
[2024-08-06 04:40] LABS: Basophils % 0.5 % (0.1-2.0); Eosinophils # 0.1 K/mm3 (0.0-0.4); Eosinophils % 1.3 % (0.1-12.0); Hematocrit 31.5 % (37.0-47.0); Lymphocytes # 1.2 K/mm3 (0.7-4.5); Lymphocytes % 28.9 % (10-50); Mean Corpuscular HGB Conc 31.6 g/dL (31.8-35.4); Mean Corpuscular Hemoglobin 29.3 pg (27.0-31.2); Mean Corpuscular Volume 92.6 fl (81-99); Mean Platelet Volume 10.8 fl (7.4-10.4); Monocytes # 0.2 K/mm3 (0.1-1.0); Monocytes % 5.3 % (1.7-9.3); Neutrophils # 2.6 K/mm3 (1.8-7.8); Platelet Count 81 K/mm3 (142-424); Red Cell Distribution Width 14.9 % (11.5-17.5); White Blood Count 4.1 K/mm3 (4.8-10.8)
[2024-08-06] MEDS: 0.9 % SODIUM CHLORIDE 1000ML 1,000 ML 50 ML IV (04:45)
[2024-08-06 04:46] LABS: Alanine Aminotransferase 15 U/L (12-78); Albumin Level 2.9 g/dl (3.5-5.0); Alkaline Phosphatase 90 U/L (38-126); Aspartate Amino Transferase 19 U/L (14-36); Bilirubin,Total 0.4 mg/dl (0.2-1.3); Blood Urea Nitrogen 7 mg/dl (7-17); Calcium 7.8 mg/dl (8.4-10.2); Carbon Dioxide 31 mmol/L (22.0-30.0); Chloride 107 mmol/L (98-107); Creatinine Clearance Estimated 186 mL/min (50-200); Estimated Glomerular Filt Rate 95 ml/min (>60); GFR (African American) 115 ML/MIN (>60); Glucose 93 mg/dl (74-100); Sodium 138 mmol/L (136-145); Total Protein,Serum 5.9 g/dl (6.3-8.2)
[2024-08-06 04:47] LABS: Magnesium 1.7 mg/dl (1.6-2.3)
[2024-08-06 04:51] LABS: C-Reactive Protein 59.5 mg/L (0-4)
[2024-08-06 04:52] LABS: Anion Gap 2.8 mEq/L (5-15)
[2024-08-06 04:54] LABS: Potassium 2.8 mmoL/L (3.5-5.1)
--- NOTE | 2024-08-06 04:58 | PC.NURSE ---
Lab called me to report a critical value for the patient (potassium 2.8). Sadaf PAPER CUP MACHINE TENDER was paged at this time to inform him about the critical value. Sadaf stated that he will put in an order for potassium tablets 40 mEq BID; the order was read back by me to him and confirmed. Magnesium level was also obtained for the patient this shift and is 1.7.
--- NOTE | 2024-08-06 04:58 | EXP.EVENT.NO ---
Lab reported potassium of 2.8 : have prescribed p.o. 40 mEq twice daily PO
[2024-08-06] MEDS: CEFEPIME HCL 2 GM in 0.9 % SODIUM CHLORIDE 100 ML IV ×2 (05:12→17:18)
--- NOTE | 2024-08-06 05:41 | PC.NURSE ---
Patient is alert and oriented x4. Patient was observed to have eyes closed, respirations even and unlabored, and no apparent distress throughout the majority night. Patient self-turns in bed. retail account specialist visited the patient earlier this shift. Patient did not have a panic episode during this shift and was able to rest comfortably in bed. Patient's lung sounds were clear and bowel sounds were active. Patient has been ambulating to the bathroom on her own and tolerates it well; she stated this morning that she has gone to the bathroom at least three times. She has not had any complaints of pain, nausea, or dizziness this shift. Patient received her scheduled PO medications per JAN. IV access was regained by ER staff (see prior note) later into this shift, and intravenous infusions and antibiotics were re-timed and resumed as well. A critical lab value was reported and referred to the hospitalist; potassium is being replaced and addressed with new order (see prior note). Patient is currently resting supine in bed. Patient stated that she will attempt to get up to the chair today to eat her breakfast. Patient does not have any other concerns at this time. Normal saline is currently infusing at 50mL/hr. Vital signs have remained stable at patient's baseline this shift. Call light within reach.
[2024-08-06 05:44] LABS: Erythrocyte Sedimentation Rate 65 mm/hr (0-20)
[2024-08-06] MEDS: VANCOMYCIN/WATER FOR INJ (PEG) 1.75 GM/350 ML PIGGYBACK IV ×2 (06:27→18:23)
[2024-08-06 07:52] VITALS: BP 133/73; PULSE 67; RESP 20; TEMP 36.7; O2SAT 95
[2024-08-06] MEDS: PANTOPRAZOLE 40MG TABLET 40 MG PO (08:53)
[2024-08-06] MEDS: PROPRANOLOL 20MG TAB 10 MG PO ×2 (08:53→20:34)
[2024-08-06] MEDS: DOCUSATE SODIUM 100 MG CAPSULE PO (08:53)
[2024-08-06] MEDS: MAGNESIUM SULFATE IN WATER 2 GM/50 ML PIGGYBACK IV (08:53)
[2024-08-06] MEDS: POTASSIUM CHLORIDE 20MEQ TAB 40 MEQ PO ×3 (08:53→20:33)
[2024-08-06] MEDS: METHADONE 10MG TABLET 100 MG PO (09:03)
[2024-08-06 11:38] VITALS: BP 123/71; PULSE 64; RESP 16; TEMP 37.1; O2SAT 94
--- NOTE | 2024-08-06 13:10 | P.DS_ITS ---
General Admission date:: 08/03/24 HPI HPI HPI: This is a 34-year-old female that presents to [facility] ED for evaluation of generalized weakness over a couple weeks not improving with home care. She describes a significant cardiovascular history with her previous intravenous drug use. She reports 3 tricuspid valve replacements with her most recent in November 2023 at [facility]. She reports no IV drug use since April 2023. Her significant other at bedside characterized as fianc? supports her non-use history over the past year. She is currently on methadone therapy. She is uncertain of QTc monitoring. She does not recall her last echocardiogram. I am accompanied by Mera RN who assists with the history. She describes recent visits to urgent treatment centers for her weakness concerns. Her weakness is characterized as non-room spinning sensation characterized as dizziness with standing, I also get lightheaded with associated shortness of air. She reports intermittent tachycardia. She describes a sensation of almost passing out. She does voice concern with an antibiotic reaction noting that she is allergic to Augmentin but was prescribed this medication with a recent [facility] evaluation. In the ED she had 2 ECGs with the second identifying QTc 484 MS. Her potassium was 2.8 and her magnesium is pending at the time of admission. Her TSH was 0.3 and her total T4 was 12.4. Free T4 was normal at 1.79. She reports that she is already feeling better with fluid resuscitation. Exam Data for Last 24 hours Vital signs and Labs for Last 24 Hours: Temp Pulse Resp BP Pulse Ox O2 Del Method 98.7 F 64 16 123/71 94 L Room Air 08/06/24 11:38 08/06/24 11:38 08/06/24 11:38 08/06/24 11:38 08/06/24 11:38 08/06/24 12:41 Laboratory Results - last 24 hr 08/06/24 04:20: WBC 4.1 L D, RBC 3.40 L, Hgb 10.0 L, Hct 31.5 L, MCV 92.6, MCH 29.3, MCHC 31.6 L, RDW 14.9, Plt Count 81 L D, MPV 10.8 H, Neut % (Auto) 64.0, Lymph % (Auto) 28.9, [place] % (Auto) 5.3, Eos % (Auto) 1.3, Baso % (Auto) 0.5, Neut # (Auto) 2.6, Lymph # (Auto) 1.2, [place] # (Auto) 0.2, Eos # (Auto) 0.1, Baso # (Auto) 0.0, ESR 65 H, Sodium 138, Potassium 2.8 L* D, Chloride 107, Carbon Dioxide 31 H, Anion Gap 2.8 L, BUN 7 D, Creatinine 0.70, Estimated Creat Clear 186, Estimated GFR 95, Est GFR ( Amer) 115, Glucose 93, Calcium 7.8 L, Magnesium 1.7, Total Bilirubin 0.4, AST 19 D, ALT 15, Alkaline Phosphatase 90, C-Reactive Protein 59.5 H D, Total Protein 5.9 L, Albumin 2.9 L, Globulin 3.0, Albumin/Globulin Ratio 1.0 L I & O for Last 24 hours: Intake & Output 08/03/24 08/04/24 08/05/24 08/06/24 23:59 23:59 23:59 23:59 Intake Total 600 / 1670 1890 / 2848 1708 / 2577 1589 / 1589 Output Total 0 / 0 0 / 0 0 / 0 0 / 0 Balance 600 / 1670 1890 / 2848 1708 / 2577 1589 / 1589 Weight 101.179 kg 105.857 kg 105.859 kg 108.227 kg Microbiology Reports for the Last 24 Hours: Microbiology 08/03/24 15:19 Nose MRSA Culture - Final Results Data Completed and Pending Labs on day of discharge: Labs from last 24 hours 08/06/24 04:20 WBC 4.1 L D RBC 3.40 L Hgb 10.0 L Hct 31.5 L MCV 92.6 MCH 29.3 MCHC 31.6 L RDW 14.9 Plt Count 81 L D MPV 10.8 H Neut % (Auto) 64.0 Lymph % (Auto) 28.9 [place] % (Auto) 5.3 Eos % (Auto) 1.3 Baso % (Auto) 0.5 Neut # (Auto) 2.6 Lymph # (Auto) 1.2 [place] # (Auto) 0.2 Eos # (Auto) 0.1 Baso # (Auto) 0.0 ESR 65 H Sodium 138 Potassium 2.8 L* D Chloride 107 Carbon Dioxide 31 H Anion Gap 2.8 L BUN 7 D Creatinine 0.70 Estimated Creat Clear 186 Estimated GFR 95 Est GFR ( Amer) 115 Glucose 93 Calcium 7.8 L Magnesium 1.7 Total Bilirubin 0.4 AST 19 D ALT 15 Alkaline Phosphatase 90 C-Reactive Protein 59.5 H D Total Protein 5.9 L Albumin 2.9 L Globulin 3.0 Albumin/Globulin Ratio 1.0 L DS: Diagnosis Discharge Diagnosis (1) Bacteremia: Status: Acute Code(s): R78.81 - Bacteremia (2) Hyperthyroidism, subclinical: Code(s): E05.90 - Thyrotoxicosis, unspecified without thyrotoxic crisis or storm (3) Pre-syncope: Status: Acute Code(s): R55 - Syncope and collapse (4) Methadone dependence: Status: Acute Code(s): F11.20 - Opioid dependence, uncomplicated (5) Presence of prosthetic heart valve: Status: Acute Code(s): Z95.2 - Presence of prosthetic heart valve Meds Home Medications and Allergies Home Medications ?Medication ?Instructions ?Recorded ?Confirmed ?Type methadone 10 mg/5 mL oral solution 100 mg PO DAILY addiction 05/12/22 08/03/24 History azithromycin 250 mg tablet 250 mg PO UD DOSE PK #6 tabs 08/02/24 08/03/24 Rx (Zithromax) qdmlofslhmysswb-kxodptapcowcxxn-DN 5 ml PO Q6H PRN Cough #240 mL 08/02/24 08/03/24 Rx 2 mg-30 mg-10 mg/5 mL oral syrup (Bromfed DM) furosemide 20 mg tablet 20 mg PO DAILY 08/02/24 08/03/24 History methylprednisolone 4 mg tablets in 4 mg PO DIRECTED 6 days #21 tabs 08/02/24 08/03/24 Rx a dose pack aspirin 81 mg tablet,delayed 81 mg PO DAILY 08/03/24 08/03/24 History release New Prescriptions to Start Prescriptions: Allergies Allergy/AdvReac Type Severity Reaction Status Date / Time amoxicillin [From Augmentin] Allergy Rash Verified 08/02/24 15:56 clavulanic acid Allergy Rash Verified 08/02/24 15:56 [From Augmentin] Sulfa (Sulfonamide Allergy Rash Verified 08/02/24 15:56 Antibiotics) Discharge Plan Disposition Patient Disposition: Xfer Short-Term Hosp Condition: Good Follow up Plan Prescriptions/Medication Reconciliation: No Action methadone 10 mg/5 mL solution 100 mg PO DAILY Rx Instructions: CONFIRMED DOSE WITH [facility] [phone] WITH PRUDENCE MELENDEZ LPN. LAST DOSE WAS 08/02/24 IN OFFICE. furosemide 20 mg tablet 20 mg PO DAILY azithromycin [Zithromax] 250 mg tablet 250 mg PO UD DOSE PK Qty: 6 0RF Rx Instructions: Take two (2) tablets today, then one (1) tablet days #2 thru #5 methylprednisolone 4 mg Tablets,Dose Pack 4 mg PO DIRECTED 6 Days Qty: 21 0RF Rx Instructions: Take 1 pack as directed for 6 days cwywsexizvanllk-zodalqzpv-IK [Bromfed DM] 2-30-10 mg/5 mL Syrup 5 ml PO Q6H PRN (Reason: Cough) Qty: 240 0RF aspirin [Aspir-81] 81 mg Tablet,Delayed Release (Dr/Ec) 81 mg PO DAILY Patient Discharge Instructions Patient Instructions: Hyperthyroidism, DI for Hyperthyroidism, Hypokalemia Print Language: Macanese Providers Primary Care Provider: Provider,Referral Admit Provider: Ashutosh Laguna Attending Provider: Ashutosh Laguna
[2024-08-06 15:50] VITALS: BP 122/73; PULSE 62; RESP 15; TEMP 36.9; O2SAT 96
--- NOTE | 2024-08-06 16:15 | PC.NURSE ---
Raoul from called at 0900 to get an update on pt and said there may be a bed open at some point today but couldn't guarantee anything just yet but would give a call back when one is available.
--- NOTE | 2024-08-06 16:55 | EXP.ACUTE.PN ---
Subjective *Date: 08/06/24 *Time: 16:55 Interval history: Patient did well overnight. No further panic attacks. Afebrile. Hemodynamically stable. Denies any fever, nausea, vomiting, chest pain. No active bleeding. Tolerating p.o. intake. Medical Exam Vital signs and Labs for Last 24 Hours: Vital Signs Temp Pulse Resp BP Pulse Ox O2 Del Method 08/06/24 16:35 Room Air 08/06/24 15:50 98.5 F 62 15 122/73 96 Room Air 08/06/24 14:37 Room Air 08/06/24 12:41 Room Air 08/06/24 11:38 98.7 F 64 16 123/71 94 L Room Air 08/06/24 11:00 Room Air 08/06/24 09:00 Room Air 08/06/24 08:00 Room Air 08/06/24 07:52 98.1 F 67 20 133/73 95 Room Air 08/06/24 06:51 Room Air 08/06/24 05:00 Room Air 08/06/24 04:00 98.6 F 65 16 110/69 95 Room Air 08/06/24 03:00 Room Air 08/06/24 01:00 Room Air 08/06/24 00:00 98.4 F 68 18 118/70 95 Room Air 08/05/24 23:00 Room Air 08/05/24 21:00 Room Air 08/05/24 20:00 68 18 95 Room Air 08/05/24 20:00 98.4 F 68 18 118/70 95 Room Air 08/05/24 18:43 Room Air 08/05/24 17:00 Room Air Intake and Output 08/06/24 08/06/24 08/06/24 07:59 15:59 23:59 Intake Total 1988 Output Total 0 / 0 0 / 0 Balance 1988 Intake: Intake, Oral Amount 120 / 1240 1120 / 1240 Intake, Total IV Amount 100 / 100 Cefepime HCl 2 gm In 0.9 % 100 / 100 Sodium Chloride 100 ml @ 200 mls/hr IV ONCE ONE Rx#:[id number] Infusion Intake 649 / 649 0.9 % Sodium Chloride 1000ML 1, 649 / 649 000 ml @ 50 mls/hr IV .Q20H [facility] Rx#:[id number] Output: Output, Urine Amount 0 / 0 0 / 0 Other: Number of Unmeasured Voids 1 Number of Bowel Movements 1 Weight 108.227 kg Patient Weight 08/06/24 23:59 Weight 108.227 kg Laboratory Results - last 24 hr 08/06/24 04:20: WBC 4.1 L D, RBC 3.40 L, Hgb 10.0 L, Hct 31.5 L, MCV 92.6, MCH 29.3, MCHC 31.6 L, RDW 14.9, Plt Count 81 L D, MPV 10.8 H, Neut % (Auto) 64.0, Lymph % (Auto) 28.9, [place] % (Auto) 5.3, Eos % (Auto) 1.3, Baso % (Auto) 0.5, Neut # (Auto) 2.6, Lymph # (Auto) 1.2, [place] # (Auto) 0.2, Eos # (Auto) 0.1, Baso # (Auto) 0.0, ESR 65 H, Sodium 138, Potassium 2.8 L* D, Chloride 107, Carbon Dioxide 31 H, Anion Gap 2.8 L, BUN 7 D, Creatinine 0.70, Estimated Creat Clear 186, Estimated GFR 95, Est GFR ( Amer) 115, Glucose 93, Calcium 7.8 L, Magnesium 1.7, Total Bilirubin 0.4, AST 19 D, ALT 15, Alkaline Phosphatase 90, C-Reactive Protein 59.5 H D, Total Protein 5.9 L, Albumin 2.9 L, Globulin 3.0, Albumin/Globulin Ratio 1.0 L I & O for Labs for Last 24 Hours: Intake & Output 08/03/24 08/04/24 08/05/24 08/06/24 23:59 23:59 23:59 23:59 Intake Total 600 / 1670 1890 / 2848 1707 / 2576 Output Total 0 / 0 0 / 0 0 / 0 0 / 0 Balance 600 / 1670 1890 / 2848 1707 / 2576 Weight 101.179 kg 105.857 kg 105.859 kg 108.227 kg Constitutional: Present no acute distress and obese Head: Present atraumatic and normocephalic ENT: Present normal exam Respiratory: Present normal respiratory effort; Absent respiratory distress, rhonchi, stridor, wheezes or crackles Cardiac: Present Reg Rate and Rhythm GI: Present soft and normal bowel sounds; Absent distention or tenderness Extremities: Present normal inspection and full ROM Comment:: No Jan[place]ay lesions or Osler nodes Skin: Present intact; Absent erythema, petechiae, wounds or rash Neuro: Present Grossly Intact, alert, awake, oriented x 3 and moves all extremities Assessment and Plan *Assessment and plan (1) Bacteremia: Status: Acute Category: Medical Code(s): R78.81 - Bacteremia (2) Hyperthyroidism, subclinical: Category: Medical Code(s): E05.90 - Thyrotoxicosis, unspecified without thyrotoxic crisis or storm (3) Pre-syncope: Status: Acute Category: Medical Code(s): R55 - Syncope and collapse (4) Methadone dependence: Status: Acute Category: Medical Code(s): F11.20 - Opioid dependence, uncomplicated (5) Presence of prosthetic heart valve: Status: Acute Category: Medical Code(s): Z95.2 - Presence of prosthetic heart valve Plan This is a 34-year-old female with a complicated history of intravenous drug use with last reported use April 2023. She reports 3 tricuspid valve replacements most recently November 2023 at [facility]. Previously at [place] in [facility] and . On chronic methadone therapy. Blood cultures MSSA positive from admission, repeat cultures remain negative at >24hrs. No fever overnight. Continues to require inpatient management. Problems addressed as follows: Bacteremia Presence of prosthetic heart valve -All 4 blood cultures positive for staph species, sensitivities show MSSA. Continuing cefepime 2 g twice daily and vancomycin IV. Repeat blood cultures pending. Will de-escalate if they show negative at 48 hours. -[facility] consulted for transfer due to prosthetic heart valve and bacteremia. Patient accepted but on wait list. 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 Echo obtained, awaiting formal read. -White count normal at 4.1. Platelets improving at 81 today. Up from 48. CRP elevated at 59.5, down from 90 yesterday. ESR up slightly at 65 from 46 yesterday.. Repeat CBC, CMP, magnesium, CRP and ESR ordered for the morning. Electrolyte abnormalities: Potassium 2.8, magnesium 1.7. Will replace oral potassium 40 mEq 3 times a day along with IV magnesium 2 g once today. Subclinical hyperthyroidism Thyroid ultrasound showing enlarged thyroid but no discrete nodules. Low TSH with normal free T4 and T3 studies pending Continue propranolol 10 mg twice daily. Outpatient follow-up with PCP and endocrinology Presyncope History of tricuspid valve replacement x 3 Chronically on loop diuretic therapy Echocardiogram obtained, formal read pending. Would benefit from PRICE, will consider in the morning if patient has not transferred. Methadone dependence ED ECG with QTc 484 MS continue methadone 100 mg daily Full code Regular diet
[2024-08-06 20:00] VITALS: BP 116/70; PULSE 65; RESP 16; TEMP 37.1; O2SAT 94
[2024-08-06 20:46] VITALS: BMI 36.1
[2024-08-06 20:50] VITALS: BMI 35.6
[2024-08-07] VITALS: BP 119/75; PULSE 69; RESP 18; TEMP 37.4
--- NOTE | 2024-08-07 03:37 | PC.NURSE ---
called at this time to receive updates about the patient's status, as well as information about her IV access lines, intravenous infusions, and recent vital sign readings. does not have a bed available but will continue to call for updates until a room has opened.
[2024-08-07 04:00] VITALS: BP 99/67; PULSE 72; RESP 16; TEMP 36.9; O2SAT 91; BMI 35.6
--- NOTE | 2024-08-07 04:02 | PC.NURSE ---
urine culture suggests contamination, ntd
[2024-08-07] MEDS: CEFEPIME HCL 2 GM in 0.9 % SODIUM CHLORIDE 100 ML IV ×2 (04:50→16:43)
--- NOTE | 2024-08-07 05:11 | PC.NURSE ---
Patient is alert and oriented x4. Patient was observed to have eyes closed, respirations even and unlabored on room air, and no apparent distress throughout the night. Patient has not had any complaints this shift, other than feeling a little nausea. She has not asked for any pain medications or nausea medications this shift. Patient requested peanut butter cookies for a bed time snack. She was able to rest comfortably in bed, and her significant other remained at bedside through the night. She has been ambulating to the bathroom independently with no issues. Patient has not had any further panic episodes this shift. Patient has received her scheduled medications and antibiotics per JAN. She currently has normal saline infusing at 50 mL/hr. Lung sounds were clear and bowel sounds were active upon auscultation. Vital signs have remained stable for patient baseline. [facility] called once this shift to check in on the patient; they also reported that they do not have any beds available right now, but will continue to call (see prior note). No acute changes noted thus far. Patient is resting supine in bed at this time. Call light within reach. Patient continues to wait for transfer.
[2024-08-07] MEDS: VANCOMYCIN/WATER FOR INJ (PEG) 1.75 GM/350 ML PIGGYBACK IV ×2 (06:11→21:46)
[2024-08-07 07:20] LABS: Albumin Level 3.2 g/dl (3.5-5.0); Chloride 107 mmol/L (98-107); Potassium 3.8 mmoL/L (3.5-5.1); Sodium 137 mmol/L (136-145)
[2024-08-07 07:22] LABS: Blood Urea Nitrogen 5 mg/dl (7-17); Creatinine Clearance Estimated 219 mL/min (50-200); Estimated Glomerular Filt Rate 113 ml/min (>60); GFR (African American) 137 ML/MIN (>60)
[2024-08-07 07:23] LABS: Alanine Aminotransferase 16 U/L (12-78); Albumin/Globulin Ratio 1.1 (1.1-1.8); Alkaline Phosphatase 98 U/L (38-126); Anion Gap 4.8 mEq/L (5-15); Aspartate Amino Transferase 26 U/L (14-36); Bilirubin,Total 0.4 mg/dl (0.2-1.3); Carbon Dioxide 29 mmol/L (22.0-30.0); Glucose 105 mg/dl (74-100); Total Protein,Serum 6.2 g/dl (6.3-8.2)
[2024-08-07 07:51] LABS: Magnesium 1.8 mg/dl (1.6-2.3)
[2024-08-07 08:00] VITALS: BP 135/69; PULSE 69; RESP 18; TEMP 37.6; O2SAT 96
[2024-08-07 08:03] LABS: Basophils % 0.4 % (0.1-2.0); Eosinophils # 0.1 K/mm3 (0.0-0.4); Hematocrit 33.3 % (37.0-47.0); Hemoglobin 10.3 g/dL (12.2-16.2); Lymphocytes # 1.3 K/mm3 (0.7-4.5); Lymphocytes % 26.4 % (10-50); Mean Corpuscular HGB Conc 30.8 g/dL (31.8-35.4); Mean Corpuscular Hemoglobin 28.6 pg (27.0-31.2); Mean Corpuscular Volume 92.7 fl (81-99); Mean Platelet Volume 11.3 fl (7.4-10.4); Monocytes # 0.3 K/mm3 (0.1-1.0); Monocytes % 6.7 % (1.7-9.3); Neutrophils # 3.2 K/mm3 (1.8-7.8); Neutrophils % 65.6 % (37.0-80.0); Platelet Count 109 K/mm3 (142-424); Red Blood Count 3.59 M/mm3 (4.20-5.40); White Blood Count 4.9 K/mm3 (4.8-10.8)
[2024-08-07] MEDS: PANTOPRAZOLE 40MG TABLET 40 MG PO (08:27)
[2024-08-07] MEDS: PROPRANOLOL 20MG TAB 10 MG PO ×2 (08:27→21:45)
[2024-08-07] MEDS: POTASSIUM CHLORIDE 20MEQ TAB 40 MEQ PO ×3 (08:27→21:45)
[2024-08-07] MEDS: DOCUSATE SODIUM 100 MG CAPSULE PO (08:27)
[2024-08-07] MEDS: METHADONE 10MG TABLET 100 MG PO (08:44)
[2024-08-07 11:27] VITALS: BP 119/76; PULSE 63; RESP 17; TEMP 37.2; O2SAT 93
--- NOTE | 2024-08-07 11:54 | PC.NURSE ---
Raul from called to ask for update. still currently no beds available. still awaiting transfer to [facility].
[2024-08-07 16:00] VITALS: BP 112/69; PULSE 71; RESP 18; TEMP 36.9; O2SAT 95
[2024-08-07] MEDS: 0.9 % SODIUM CHLORIDE 1000ML 1,000 ML 50 ML IV (16:44)
--- NOTE | 2024-08-07 18:27 | PC.NURSE ---
pt has remained on room air this shift. pt has had no complaints throughout today. pt is to have PRICE procedure done tomorrow. consent is signed and in chart. lab could not find a vein to draw vanc trough from. blood was sent down at 1815 for 1700 trough. no new orders at this time call light within reach.
--- NOTE | 2024-08-07 19:12 | P.PN_ITS ---
Subjective *Date: 08/07/24 *Time: 19:12 Interval history: Patient did well overnight. No further panic attacks. Afebrile. Hemodynamically stable. Denies any fever, nausea, vomiting, chest pain. No active bleeding. Tolerating p.o. intake. Medical Exam Vital signs and Labs for Last 24 Hours: Vital Signs Temp Pulse Resp BP Pulse Ox O2 Del Method 08/07/24 18:29 Room Air 08/07/24 16:56 Room Air 08/07/24 16:00 98.5 F 71 18 112/69 95 Room Air 08/07/24 15:00 Room Air 08/07/24 13:00 Room Air 08/07/24 11:27 99.0 F 63 17 119/76 93 L Room Air 08/07/24 10:53 Room Air 08/07/24 08:41 Room Air 08/07/24 08:00 Room Air 08/07/24 08:00 99.6 F 69 18 135/69 96 Room Air 08/07/24 06:44 Room Air 08/07/24 05:00 Room Air 08/07/24 04:00 98.4 F 72 16 99/67 L 91 L Room Air 08/07/24 03:00 Room Air 08/07/24 01:00 Room Air 08/07/24 00:00 99.4 F 69 18 119/75 08/06/24 23:00 Room Air 08/06/24 21:00 Room Air 08/06/24 20:00 65 16 94 L Room Air 08/06/24 20:00 98.7 F 65 16 116/70 94 L Room Air Intake and Output 08/07/24 08/07/24 08/07/24 07:59 15:59 23:59 Intake Total 621 / 2892 1791 / 2892 480 / 2892 Output Total 0 / 0 0 / 0 Balance 621 / 2892 1791 / 2892 480 / 2892 Intake: Intake, Oral Amount 100 / 1420 840 / 1420 480 / 1420 Intake, Total IV Amount 951 / 951 0.9 % Sodium Chloride 1000ML 1, 951 / 951 000 ml @ 50 mls/hr IV .Q20H [facility] Rx#:[id number] Infusion Intake 521 / 521 0.9 % Sodium Chloride 1000ML 1, 171 / 171 000 ml @ 50 mls/hr IV .Q20H [facility] Rx#:[id number] Vancomycin/Water For Inj (Peg) 350 / 350 1.75 gm In 350 ml @ 175 mls/hr IV Q8H [facility] Rx#:[id number] Output: Output, Urine Amount 0 / 0 0 / 0 Other: Number of Unmeasured Voids 2 1 Weight 106.8 kg Patient Weight 08/07/24 23:59 Weight 106.8 kg Laboratory Results - last 24 hr 08/07/24 06:53: WBC 4.9, RBC 3.59 L, Hgb 10.3 L, Hct 33.3 L, MCV 92.7, MCH 28.6, MCHC 30.8 L, RDW 15.0, Plt Count 109 L D, MPV 11.3 H, Neut % (Auto) 65.6, Lymph % (Auto) 26.4, [place] % (Auto) 6.7, Eos % (Auto) 1.0, Baso % (Auto) 0.4, Neut # (Auto) 3.2, Lymph # (Auto) 1.3, [place] # (Auto) 0.3, Eos # (Auto) 0.1, Baso # (Auto) 0.0, Sodium 137, Potassium 3.8 D, Chloride 107, Carbon Dioxide 29, Anion Gap 4.8 L, BUN 5 L D, Creatinine 0.60, Estimated Creat Clear 219, Estimated GFR 113, Est GFR ( Amer) 137, Glucose 105 H, Calcium 8.0 L, Magnesium 1.8, Total Bilirubin 0.4, AST 26 D, ALT 16, Alkaline Phosphatase 98, Total Protein 6.2 L, Albumin 3.2 L D, Globulin 3.0, Albumin/Globulin Ratio 1.1 I & O for Labs for Last 24 Hours: Intake & Output 08/04/24 08/05/24 08/06/24 08/07/24 23:59 23:59 23:59 23:59 Intake Total 1890 / 2848 1708 / 2577 2489 / 3110 2892 / 2892 Output Total 0 / 0 0 / 0 0 / 0 0 / 0 Balance 1890 / 2848 1708 / 2577 2489 / 3110 2892 / 2892 Weight 105.857 kg 105.859 kg 106.8 kg 106.8 kg Microbiology Reports for the Last 24 Hours: Microbiology 08/06/24 17:30 Blood Blood Culture - Preliminary NO GROWTH AFTER 24 HOURS 08/06/24 17:30 Blood Blood Culture - Preliminary NO GROWTH AFTER 24 HOURS Constitutional: Present no acute distress and obese Head: Present atraumatic and normocephalic ENT: Present normal exam Respiratory: Present normal respiratory effort; Absent respiratory distress, rhonchi, stridor, wheezes or crackles Cardiac: Present Reg Rate and Rhythm GI: Present soft and normal bowel sounds; Absent distention or tenderness Extremities: Present normal inspection and full ROM Comment:: No Janeway lesions or Osler nodes Skin: Present intact; Absent erythema, petechiae, wounds or rash Neuro: Present Grossly Intact, alert, awake, oriented x 3 and moves all extremities Assessment and Plan *Assessment and plan (1) Bacteremia: Status: Acute Category: Medical Code(s): R78.81 - Bacteremia (2) Hyperthyroidism, subclinical: Category: Medical Code(s): E05.90 - Thyrotoxicosis, unspecified without thyrotoxic crisis or storm (3) Pre-syncope: Status: Acute Category: Medical Code(s): R55 - Syncope and collapse (4) Methadone dependence: Status: Acute Category: Medical Code(s): F11.20 - Opioid dependence, uncomplicated (5) Presence of prosthetic heart valve: Status: Acute Category: Medical Code(s): Z95.2 - Presence of prosthetic heart valve Plan This is a 34-year-old female with a complicated history of intravenous drug use with last reported use April 2023. She reports 3 tricuspid valve [facility] Previously at [place] in [facility] and . On chronic methadone therapy. Blood cultures MSSA positive from admission, repeat cultures remain negative at >24hrs. No fever overnight. Continues to require inpatient management. Problems addressed as follows: Bacteremia Presence of prosthetic heart valve -All 4 blood cultures positive for staph species, sensitivities show MSSA. Continuing cefepime 2 g twice daily and vancomycin IV. Repeat blood cultures pending. Will de-escalate if they show negative at 48 hours. -[facility] consulted for transfer due to prosthetic heart valve and bacteremia. Patient accepted but on wait list. 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 Echo obtained, awaiting formal read. -White count remains normal at 4.9. Hemoglobin 10. Platelets improved to 109. Repeat CRP, CBC, ESR, CMP and magnesium ordered for the morning. -TTE with no vegetations appreciated. Will obtain PRICE in the morning. N.p.o. at midnight. Electrolyte abnormalities: Potassium 2.8, magnesium 1.7. Will replace oral potassium 40 mEq 3 times a day along with IV magnesium 2 g once today. Subclinical hyperthyroidism Thyroid ultrasound showing enlarged thyroid but no discrete nodules. Continue propranolol 10 mg twice daily. Outpatient follow-up with PCP and endocrinology Presyncope History of tricuspid valve replacement x 3 Chronically on loop diuretic therapy Methadone dependence ED ECG with QTc 484 MS continue methadone 100 mg daily Full code Regular diet
[2024-08-07 20:00] VITALS: BP 125/73; PULSE 63; RESP 18; TEMP 36.8; O2SAT 94
--- NOTE | 2024-08-07 21:14 | PC.NURSE ---
Call to pharmacy to f/u on vanc trough. Spoke to Nasir who reports need to rerun test. Still awaiting results.
[2024-08-07 21:25] LABS: Vancomycin,Trough 10.7 ug/mL (5.0-10.0)
--- NOTE | 2024-08-07 21:59 | PC.NURSE ---
Call to avail to report trough and that vanc will now be given around 10 pm due to late lab results. Spoke to Joceline who reports to give current ordered dose and she will plan to change administration times.
[2024-08-07] MEDS: ACETAMINOPHEN 500MG TAB 1000 MG PO (22:52)
[2024-08-08] VITALS (16 sets, daily range): BP systolic 98–140; BP diastolic 55–79; PULSE 58–79; RESP 16–18; TEMP 36.2–37.7; O2SAT 90–96; BMI 34.7
--- NOTE | 2024-08-08 | CA_ITS ---
APPROVED REPORT EXAM: Comprehensive 2D, Doppler, and color-flow Echocardiogram Aemt: RT [place](R) Ht: 5 ft 8 in Wt: 215lbs BSA: 2.11 BP: 118/70 mmHg Indications: Bacteremia, positive blood cultures, hx of TVR x 3, hx endocarditis, bradycardia, smoker, hx syncope, hx of IV drug use(last used 2022) Procedure After obtaining informed consent, patient underwent transesophageal echo in the [facility]. Type of Sedation : MAC Sedation was administered by Daniel CarrascoNNancy Sedation start time: 11:30 Case end Time: 11:50 Transesophageal probe was inserted and advanced into esophagus without difficulty by Dr. Baltazar Grimes. The PRICE was performed without complications. Throughout the procedure, the blood pressure, pulse oximetry, cardiac rhythm, and rate were monitored. The patient tolerated the procedure without adverse effects. Recovery from conscious sedation was uneventful and vital signs were stable. Left Ventricle The left ventricle is normal size. The left ventricular systolic function is normal. The left ventricular ejection fraction is within the normal range. There is increased LV wall thickness. There is normal LV segmental wall motion. LVEF is 55%. Right Ventricle Right ventricle is moderately dilated. Right ventricle is mildly hypokinetic. Atria The left atrium size is normal. No thrombus is visualized in the left atrium or appendage. Right atrium is moderately dilated. Interatrial septum is intact without evidence of ASD or PFO. Aortic Valve The aortic valve is normal in structure. The aortic valve is trileaflet. Trace aortic regurgitation. Mitral Valve The mitral valve is normal in structure. No evidence of mitral valve stenosis. Mild mitral regurgitation. Tricuspid Valve s/p mechanical TVR. The prosthesis is well-seated. Mean TV gradient 4 mmHg (HR 68 bpm). Mild tricuspid regurgitation. There is a small, mobile echodensity noted on the anterior TV leaflet. The echodensity measures approximately 0.6 cm in diameter. In the setting of bacteremia, this likely represents a vegetation on the TV prosthesis. No evidence of perivalvular abscess. Pulmonic Valve The pulmonary valve is normal in structure. Trace pulmonic regurgitation. Great Vessels The aortic root is normal in size. The ascending aorta is normal in size. Pericardium There is no pericardial effusion. Other Information Study Quality: Fair Conclusion Normal LV systolic function. Moderate RV dilation with mild reduction in RV function. Moderate RA dilation. Mild MR. s/p mechanical TVR. Mild TR. There is a small, mobile echodensity noted on the anterior TV leaflet. The echodensity measures approximately 0.6 cm in diameter. In the setting of bacteremia, this likely represents a vegetation on the TV prosthesis. No evidence of perivalvular abscess. The above findings were relayed to the primary inpatient team after image acquisition. Electronically signed by : Rubina Grimes MD 08/08/2024 23:54:38
--- NOTE | 2024-08-08 04:19 | PC.NURSE ---
34 yo female pt has remained A/O x 4. She is able to ambulate to BR and is voiding without difficulty, denies BM this shift. Pt has been NPO since MN due to procedure planned for this am. She did have an episode where she reported that her insides are shaking and shivering. Temp noted at 99.6 oral. Medicated with tylenol at that time and pt went to sleep. Call from Dominique at to f/u on pts status. Bed still not available. IV antibiotics administered per JAN.
[2024-08-08] MEDS: CEFEPIME HCL 2 GM in 0.9 % SODIUM CHLORIDE 100 ML IV ×2 (04:29→17:09)
[2024-08-08 07:12] LABS: Basophils % 0.7 % (0.1-2.0); Eosinophils # 0.1 K/mm3 (0.0-0.4); Eosinophils % 1.5 % (0.1-12.0); Hematocrit 34.9 % (37.0-47.0); Hemoglobin 11.1 g/dL (12.2-16.2); Lymphocytes # 1.4 K/mm3 (0.7-4.5); Lymphocytes % 20.7 % (10-50); Mean Corpuscular HGB Conc 31.7 g/dL (31.8-35.4); Mean Corpuscular Hemoglobin 29.3 pg (27.0-31.2); Mean Corpuscular Volume 92.4 fl (81-99); Mean Platelet Volume 10.1 fl (7.4-10.4); Monocytes # 0.5 K/mm3 (0.1-1.0); Neutrophils # 4.6 K/mm3 (1.8-7.8); Neutrophils % 70.1 % (37.0-80.0); Platelet Count 132 K/mm3 (142-424); Red Blood Count 3.78 M/mm3 (4.20-5.40); Red Cell Distribution Width 14.5 % (11.5-17.5); White Blood Count 6.6 K/mm3 (4.8-10.8)
[2024-08-08 07:21] LABS: Alanine Aminotransferase 15 U/L (12-78); Albumin Level 3.5 g/dl (3.5-5.0); Albumin/Globulin Ratio 1.1 (1.1-1.8); Alkaline Phosphatase 95 U/L (38-126); Anion Gap 6.3 mEq/L (5-15); Aspartate Amino Transferase 23 U/L (14-36); Bilirubin,Total 0.5 mg/dl (0.2-1.3); Blood Urea Nitrogen 7 mg/dl (7-17); Calcium 8.6 mg/dl (8.4-10.2); Carbon Dioxide 28 mmol/L (22.0-30.0); Chloride 106 mmol/L (98-107); Creatinine Clearance Estimated 213 mL/min (50-200); Estimated Glomerular Filt Rate 113 ml/min (>60); GFR (African American) 137 ML/MIN (>60); Globulin 3.3 g/dL (1.3-3.2); Glucose 104 mg/dl (74-100); Magnesium 1.8 mg/dl (1.6-2.3); Potassium 4.3 mmoL/L (3.5-5.1); Sodium 136 mmol/L (136-145); Total Protein,Serum 6.8 g/dl (6.3-8.2)
[2024-08-08 08:12] LABS: Chol/HDL Ratio 9.5 (1-3.5); Cholesterol 133 mg/dl (140-200); HDL Cholesterol 14 mg/dl (40-60); Triglycerides 192 mg/dl (30-150); VLDL Cholesterol 38 mg/dL (0-40)
[2024-08-08 08:22] LABS: C-Reactive Protein 27.1 mg/L (0-4); Direct LDL Cholesterol 82.67 mg/dL (100-129)
[2024-08-08 09:02] LABS: Erythrocyte Sedimentation Rate 63 mm/hr (0-20)
[2024-08-08] MEDS: METHADONE 10MG TABLET 100 MG PO (09:12)
[2024-08-08] MEDS: DOCUSATE SODIUM 100 MG CAPSULE PO (09:12)
[2024-08-08] MEDS: PROPRANOLOL 20MG TAB 10 MG PO (09:13)
[2024-08-08] MEDS: PANTOPRAZOLE 40MG TABLET 40 MG PO (09:13)
[2024-08-08] MEDS: POTASSIUM CHLORIDE 20MEQ TAB 40 MEQ PO ×2 (09:14→12:24)
[2024-08-08] MEDS: VANCOMYCIN/WATER FOR INJ (PEG) 1.75 GM/350 ML PIGGYBACK IV (09:14)
[2024-08-08] MEDS: LACTATED RINGERS 1000ML 1,000 ML 25 ML IV (10:42)
--- NOTE | 2024-08-08 10:43 | P.CONPHA_ITS ---
Pharmacy Consult Date: 08/08/24 Time: 10:43 Referring provider: DR. ANDREW Reason for Consult:: VANCOMYCIN LEVEL Allergies Allergy/AdvReac Type Severity Reaction Status Date / Time amoxicillin [From Augmentin] Allergy Rash Verified 08/02/24 15:56 clavulanic acid Allergy Rash Verified 08/02/24 15:56 [From Augmentin] Sulfa (Sulfonamide Allergy Rash Verified 08/02/24 15:56 Antibiotics) Home Medications ?Medication ?Instructions ?Recorded ?Confirmed ?Type methadone 10 mg/5 mL oral solution 100 mg PO DAILY addiction 05/12/22 08/03/24 History azithromycin 250 mg tablet 250 mg PO UD DOSE PK #6 tabs 08/02/24 08/03/24 Rx (Zithromax) wwzkuhyqvvrkwzx-dbzpvmtalifctsr-QV 5 ml PO Q6H PRN Cough #240 mL 08/02/24 08/03/24 Rx 2 mg-30 mg-10 mg/5 mL oral syrup (Bromfed DM) furosemide 20 mg tablet 20 mg PO DAILY 08/02/24 08/03/24 History methylprednisolone 4 mg tablets in 4 mg PO DIRECTED 6 days #21 tabs 08/02/24 08/03/24 Rx a dose pack aspirin 81 mg tablet,delayed 81 mg PO DAILY 08/03/24 08/03/24 History release New Prescriptions to Start Prescriptions: Height: 1.73 m Weight: 104.128 kg Laboratory Results:: Laboratory Results - last 24 hr 08/07/24 18:15: Vancomycin Trough 10.7 H 08/08/24 06:45: WBC 6.6 D, RBC 3.78 L, Hgb 11.1 L, Hct 34.9 L, MCV 92.4, MCH 29.3, MCHC 31.7 L, RDW 14.5, Plt Count 132 L, MPV 10.1, Neut % (Auto) 70.1, Lymph % (Auto) 20.7, [place] % (Auto) 7.0, Eos % (Auto) 1.5, Baso % (Auto) 0.7, Neut # (Auto) 4.6, Lymph # (Auto) 1.4, [place] # (Auto) 0.5, Eos # (Auto) 0.1, Baso # (Auto) 0.0, ESR 63 H, Sodium 136, Potassium 4.3, Chloride 106, Carbon Dioxide 28, Anion Gap 6.3, BUN 7 D, Creatinine 0.60, Estimated Creat Clear 213, Estimated GFR 113, Est GFR ( Amer) 137, Glucose 104 H, Calcium 8.6, Magnesium 1.8, Total Bilirubin 0.5, AST 23, ALT 15, Alkaline Phosphatase 95, C- Reactive Protein 27.1 H D, Total Protein 6.8, Albumin 3.5, Globulin 3.3 H, Albumin/Globulin Ratio 1.1, Triglycerides 192 H, Cholesterol 133 L, LDL Cholesterol Direct 82.67 L, VLDL Cholesterol 38, HDL Cholesterol 14 L, Cholesterol/HDL Ratio 9.5 H Medical History: Medical History (Updated 08/05/24 @ 19:47 by Marcell Grider MD) Kidney calculi Depression Asthma Impetigo Cellulitis Impetigo Abdominal pain Moderate tricuspid regurgitation Dyspnea History of drug use Tobacco use Sinus bradycardia Assessment and Plan Assessment and plan all Dx Assessment and Plan for all problems:: VANCOMYCIN TROUGH LEVEL WAS 10.7 MCG/ML OVERNIGHT. RECOMMEND PATIENT CONTINUE WITH CURRENT DOSE OF VANCOMYCIN 1750 MG Q18H AT THIS TIME.
--- NOTE | 2024-08-08 11:00 | P.PNANES_ITS ---
[facility] Disclaimer: The information contained in this section may have been updated after the patient was seen, as this information can be updated by other users. Medical History Kidney calculi Depression Asthma Impetigo Cellulitis Impetigo Abdominal pain Moderate tricuspid regurgitation Dyspnea History of drug use Tobacco use Sinus bradycardia Surgical History Hx laparoscopic cholecystectomy Hx of right heart catheterization Tricuspid valve replaced Family History Other No significant family history Social History Smoking Status: Current every day smoker tobacco type: cigarettes packs per day: 1 alcohol intake: never substance use type: former substance user and heroin current occupational status: other Travel in the last 8 weeks: Inside the [place] [facility] Anesthesia Checklist Patient Identification Patient Identification: Arm Band and Verbal (Name & ) Structural Data Admitted From: Home Planned Operative Procedure/s: PRICE Consent for Planned Operative Procedure(s) Verified: Yes Verified Documents: Surgical Consent and History and Physical NPO Status Verified Time NPO: 00:00 Chart Verification Results Verified: CBC, BMP and HCG Additional verifications Anesthesia Reactions: No Airway Assessment Mallampati Score:: Class I C-Spine Mobility Assessed: Yes TMJ Mobility Assessed: Yes Dentition: Good Dentition Neurological Assessment Level of Consciousness: Awake Hx Seizures: No Numbness or tingling in extremities: No Anesthesia Plan Anesthesia Risk discussed: Yes Anesthesia Plan: Verified ASA Class: III Anesthesia Type: MAC
--- NOTE | 2024-08-08 11:00 | EXP.CARD.CON ---
History of Present Illness History of Present Illness Consult date: 08/08/24 Requesting physician: Marcell Grider Chief complaint: weakness, fevers History of present illness: This is a 34-year-old female who presented to the emergency department with complaints of weakness and fevers. 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 She is currently on methadone. The patient reports that she had not been feeling well for approximately 1 week. She states that she felt like she was very dizzy and weak. She was having fever and chills. She felt like her heart was racing at times with tachycardia. She states that she got so dizzy that she felt like she was going to pass out but did not have a syncopal episode. She denies any chest pain or pressure. She was short of breath with her recent illness. She states that she was evaluated at [facility] and was started on antibiotics with no improvement in her symptoms. She states that she just kept getting more sick and decided to come to the emergency department. Upon arrival she is found to be hypokalemic and her thyroid labs were abnormal. She was admitted for presyncope and did have improvement in her symptoms with IV fluids. The patient had blood cultures drawn and all 4 sets of blood cultures were positive for staph and she has been started on IV antibiotics. Cardiology was consulted due to her history of infective endocarditis and valve replacement. [facility] Disclaimer: The information contained in this section may have been updated after the patient was seen, as this information can be updated by other users. Medical History (Updated 08/08/24 @ 11:34 by Amelia Candelario APRN) History of bacterial endocarditis Kidney calculi Depression Asthma Impetigo Cellulitis Impetigo Abdominal pain Moderate tricuspid regurgitation Dyspnea History of drug use Tobacco use Sinus bradycardia Surgical History Hx laparoscopic cholecystectomy Hx of right heart catheterization Tricuspid valve replaced Family History Other No significant family history Social History Smoking Status: Current every day smoker tobacco type: cigarettes packs per day: 1 alcohol intake: never substance use type: former substance user and heroin current occupational status: other Travel in the last 8 weeks: Inside the [place] Review of Systems Review of Systems Review of systems:: pertinent systems reviewed and negative unless documented below Constitutional Constitutional: Reports system reviewed and no additional complaints, except as documented, Reports chills, Reports fever(s), Reports lethargy, Reports malaise and Reports weakness Eyes Eyes: Reports system reviewed and no additional complaints, except as documented ENT Ears, Nose, Mouth, and Throat: Reports system reviewed and no additional complaints, except as documented and Reports vertigo *Cardiovascular Cardiovascular: Reports system reviewed and no additional complaints, except as documented, Denies chest pain, Reports dyspnea, Reports palpitations and Reports rapid heart rate *Respiratory Respiratory: Reports system reviewed and no additional complaints, except as documented and Reports dyspnea *Gastrointestinal Gastrointestinal: Reports system reviewed and no additional complaints, except as documented *Genitourinary Genitourinary: Reports system reviewed and no additional complaints, except as documented *Musculoskeletal Musculoskeletal: Reports system reviewed and no additional complaints, except as documented Integumentary/Breasts Skin/Breast: Reports system reviewed and no additional complaints, except as documented *Neurologic Neurologic: Reports system reviewed and no additional complaints, except as documented, Reports vertigo and Reports weakness Psychiatric Psychiatric: Reports system reviewed and no additional complaints, except as documented Endocrine Endocrine: Reports system reviewed and no additional complaints, except as documented and Reports palpitations Hematologic/Lymphatic Hematologic/Lymphatic: Reports system reviewed and no additional complaints, except as documented Allergic/Immunologic Allergic/Immunologic: Reports system reviewed and no additional complaints, except as documented Exam Data for Last 24 hours Vital signs and Labs for Last 24 Hours: Temp Pulse Resp BP Pulse Ox O2 Del Method 97.6 F 61 17 126/77 95 Room Air 08/08/24 08:00 08/08/24 08:00 08/08/24 08:00 08/08/24 08:00 08/08/24 08:00 08/08/24 08:00 Laboratory Results - last 24 hr 08/07/24 18:15: Vancomycin Trough 10.7 H 08/08/24 06:45: WBC 6.6 D, RBC 3.78 L, Hgb 11.1 L, Hct 34.9 L, MCV 92.4, MCH 29.3, MCHC 31.7 L, RDW 14.5, Plt Count 132 L, MPV 10.1, Neut % (Auto) 70.1, Lymph % (Auto) 20.7, [place] % (Auto) 7.0, Eos % (Auto) 1.5, Baso % (Auto) 0.7, Neut # (Auto) 4.6, Lymph # (Auto) 1.4, [place] # (Auto) 0.5, Eos # (Auto) 0.1, Baso # (Auto) 0.0, ESR 63 H, Sodium 136, Potassium 4.3, Chloride 106, Carbon Dioxide 28, Anion Gap 6.3, BUN 7 D, Creatinine 0.60, Estimated Creat Clear 213, Estimated GFR 113, Est GFR ( Amer) 137, Glucose 104 H, Calcium 8.6, Magnesium 1.8, Total Bilirubin 0.5, AST 23, ALT 15, Alkaline Phosphatase 95, C-Reactive Protein 27.1 H D, Total Protein 6.8, Albumin 3.5, Globulin 3.3 H, Albumin/Globulin Ratio 1.1, Triglycerides 192 H, Cholesterol 133 L, LDL Cholesterol Direct 82.67 L, VLDL Cholesterol 38, HDL Cholesterol 14 L, Cholesterol/HDL Ratio 9.5 H I & O for Last 24 hours: Intake & Output 08/05/24 08/06/24 08/07/24 08/08/24 23:59 23:59 23:59 23:59 Intake Total 1708 / 2577 2489 / 3110 2892 / 3732 1190 / 1190 Output Total 0 / 0 0 / 0 0 / 0 0 / 0 Balance 1708 / 2577 2489 / 3110 2892 / 3732 1190 / 1190 Weight 233 lb 6.066 oz 235 lb 7.259 oz 235 lb 7.259 oz 229 lb 9 oz Microbiology Reports for the Last 24 Hours: Microbiology 08/06/24 17:30 Blood Blood Culture - Preliminary NO GROWTH AFTER 24 HOURS 08/06/24 17:30 Blood Blood Culture - Preliminary NO GROWTH AFTER 24 HOURS Constitutional Constitutional: no acute distress and obese *Routine HEENT Exam Head: Present normocephalic and atraumatic ENT: Present mucous membranes moist *Routine Neck Exam Neck: Present supple, full ROM and normal carotid upstroke; Absent JVD, carotid bruit or lymphadenopathy *Routine Respiratory Exam Respiratory: Present CTA bilaterally, normal respiratory effort, able to speak in complete sentences and symmetric chest movement *Routine Cardiovascular Exam Cardiovascular: Present RRR, Normal S1, Normal S2 and murmur; Absent gallop *Routine Abdominal Exam Abdominal: Present soft and normoactive bowel sounds; Absent tenderness, distended or organomegaly *Routine Extremities Exam Extremities: Present full ROM, pulses intact and normal capillary refill; Absent cyanosis, clubbing or edema *Routine Skin Exam Skin: Present intact and warm; Absent erythema *Routine Neurological Exam Neurological: Present alert, oriented X3 and CN II-XII intact; Absent sensory deficit or motor deficit Routine Psychiatric Exam Psychiatric: Present normal affect Meds Home Medications and Allergies Home Medications ?Medication ?Instructions ?Recorded ?Confirmed ?Type methadone 10 mg/5 mL oral solution 100 mg PO DAILY addiction 05/12/22 08/03/24 History azithromycin 250 mg tablet 250 mg PO UD DOSE PK #6 tabs 08/02/24 08/03/24 Rx (Zithromax) [id number] 5 ml PO Q6H PRN Cough #240 mL 08/02/24 08/03/24 Rx 2 mg-30 mg-10 mg/5 mL oral syrup (Bromfed DM) furosemide 20 mg tablet 20 mg PO DAILY 08/02/24 08/03/24 History methylprednisolone 4 mg tablets in 4 mg PO DIRECTED 6 days #21 tabs 08/02/24 08/03/24 Rx a dose pack aspirin 81 mg tablet,delayed 81 mg PO DAILY 08/03/24 08/03/24 History release New Prescriptions to Start Prescriptions: Allergies Allergy/AdvReac Type Severity Reaction Status Date / Time amoxicillin [From Augmentin] Allergy Rash Verified 08/02/24 15:56 clavulanic acid Allergy Rash Verified 08/02/24 15:56 [From Augmentin] Sulfa (Sulfonamide Allergy Rash Verified 08/02/24 15:56 Antibiotics) Assessment and Plan *Assessment and plan (1) Presence of prosthetic heart valve: Status: Acute Category: Medical Code(s): Z95.2 - Presence of prosthetic heart valve (2) Bacteremia: Status: Acute Category: Medical Code(s): R78.81 - Bacteremia (3) History of bacterial endocarditis: Status: Acute Category: Medical Code(s): Z86.79 - Personal history of other diseases of the circulatory system (4) Hyperthyroidism: Status: Acute Category: Medical Code(s): E05.90 - Thyrotoxicosis, unspecified without thyrotoxic crisis or storm (5) Methadone dependence: Status: Acute Category: Medical Code(s): F11.20 - Opioid dependence, uncomplicated (6) Fever: Status: Acute Qualifiers: Fever type: due to other condition Qualified Code(s): R50.81 - Fever presenting with conditions classified elsewhere Category: Medical Code(s): R50.9 - Fever, unspecified (7) Pre-syncope: Status: Acute Category: Medical Code(s): R55 - Syncope and collapse (8) Hypokalemia: Status: Acute Category: Medical Code(s): E87.6 - Hypokalemia (9) Tricuspid valve replaced: Status: Acute Category: Surgical Code(s): Z95.4 - Presence of other heart-valve replacement (10) History of drug use: Status: Acute Category: Social Hx Code(s): Z87.898 - Personal history of other specified conditions Plan Plan: 1. The patient was admitted to the hospital for bacteremia. She is currently getting IV antibiotics. She does have a history of infective endocarditis with tricuspid valve replacement x 3. The most recent replacement was in November of this year. Echocardiogram shows a normal functioning bioprosthetic tricuspid valve with mild to moderate regurgitation. No evidence of endocarditis noted on echocardiogram however, this is inconclusive. 2. Due to her history of infective endocarditis and tricuspid valve replacement we will plan to proceed with PRICE today to rule out infective endocarditis as the source of her bacteremia. 3. The patient is educated on the risks and benefits of proceeding with PRICE. The patient verbalized understanding and is agreeable in proceeding with the procedure. 4. The patient will be n.p.o. in preparation for PRICE today. 5. Her blood pressure is well-controlled. 6. Her LDL goal is less than 100. Her LDL is 82. 7. The patient does have a history of IV drug use. She states that she has not used any IV drugs since April 2023. She is currently on methadone. 8. Further recommendations will be made pending the patient's response to treatment and the results of her PRICE today. Thank you for the opportunity to have participate in the care of this patient. All recommendations and orders are per Dr. Grimes. Addendum: PRICE showed that the tricuspid valve has a 0.6 cm vegetation noted. This does not appear to be affecting the functioning of the valve. The patient needs at least 4 to 6 weeks of IV antibiotics. She would benefit from a repeat PRICE after 6 weeks of antibiotics. Recommend transfer to [facility] for evaluation by CT surgery to determine whether or not her valve needs to be repaired or replaced again. Also recommend transfer to [facility] for evaluation by infectious disease. The patient's blood cultures are positive for staph/MSSA. She may benefit from lifelong antibiotics because of the potential for recurrent colonization of MSSA.
--- NOTE | 2024-08-08 12:16 | PC.NURSE ---
Pt back to the floor and wanting lunch... vss.
--- NOTE | 2024-08-08 15:16 | PC.NURSE ---
Aox4, up ad whit, 20g r fa with ns at 50 ml/hr, cardiac diet, on contact for mrsa, 90's on ra, was told she has vegetations on her tricuspid valve and will need 4-6 weeks of abx therapy, also pt is awaiting a bed at .
--- NOTE | 2024-08-08 16:22 | P.PN_ITS ---
Subjective *Date: 08/08/24 *Time: 16:22 Interval history: Patient was sitting in bed this morning without acute concerns or distress. She states she feels better than yesterday, has less malaise and weakness. Denies chest pain, shortness of breath, abdominal pain, constipation/diarrhea. Ambulating and tolerating p.o. intake well. Exam Data for Last 24 hours Vital signs and Labs for Last 24 Hours: Temp Pulse Resp BP Pulse Ox O2 Del Method O2 Flow Rate 98 F 58 L 18 114/67 94 L Room Air 2 08/08/24 14:00 08/08/24 14:00 08/08/24 14:00 08/08/24 14:00 08/08/24 14:00 08/08/24 14:00 08/08/24 12:10 Laboratory Results - last 24 hr 08/07/24 18:15: Vancomycin Trough 10.7 H 08/08/24 06:45: WBC 6.6 D, RBC 3.78 L, Hgb 11.1 L, Hct 34.9 L, MCV 92.4, MCH 29.3, MCHC 31.7 L, RDW 14.5, Plt Count 132 L, MPV 10.1, Neut % (Auto) 70.1, Lymph % (Auto) 20.7, [place] % (Auto) 7.0, Eos % (Auto) 1.5, Baso % (Auto) 0.7, Neut # (Auto) 4.6, Lymph # (Auto) 1.4, [place] # (Auto) 0.5, Eos # (Auto) 0.1, Baso # (Auto) 0.0, ESR 63 H, Sodium 136, Potassium 4.3, Chloride 106, Carbon Dioxide 28, Anion Gap 6.3, BUN 7 D, Creatinine 0.60, Estimated Creat Clear 213, Estimated GFR 113, Est GFR ( Amer) 137, Glucose 104 H, Calcium 8.6, Magnesium 1.8, Total Bilirubin 0.5, AST 23, ALT 15, Alkaline Phosphatase 95, C- Reactive Protein 27.1 H D, Total Protein 6.8, Albumin 3.5, Globulin 3.3 H, Albumin/Globulin Ratio 1.1, Triglycerides 192 H, Cholesterol 133 L, LDL Cholesterol Direct 82.67 L, VLDL Cholesterol 38, HDL Cholesterol 14 L, Cholesterol/HDL Ratio 9.5 H Temp Pulse Resp BP Pulse Ox O2 Del Method 97.6 F 61 17 126/77 95 Room Air 08/08/24 08:00 08/08/24 08:00 08/08/24 08:00 08/08/24 08:00 08/08/24 08:00 08/08/24 08:00 Laboratory Results - last 24 hr 08/07/24 18:15: Vancomycin Trough 10.7 H 08/08/24 06:45: WBC 6.6 D, RBC 3.78 L, Hgb 11.1 L, Hct 34.9 L, MCV 92.4, MCH 29.3, MCHC 31.7 L, RDW 14.5, Plt Count 132 L, MPV 10.1, Neut % (Auto) 70.1, Lymph % (Auto) 20.7, [place] % (Auto) 7.0, Eos % (Auto) 1.5, Baso % (Auto) 0.7, Neut # (Auto) 4.6, Lymph # (Auto) 1.4, [place] # (Auto) 0.5, Eos # (Auto) 0.1, Baso # (Auto) 0.0, ESR 63 H, Sodium 136, Potassium 4.3, Chloride 106, Carbon Dioxide 28, Anion Gap 6.3, BUN 7 D, Creatinine 0.60, Estimated Creat Clear 213, Estimated GFR 113, Est GFR ( Amer) 137, Glucose 104 H, Calcium 8.6, Magnesium 1.8, Total Bilirubin 0.5, AST 23, ALT 15, Alkaline Phosphatase 95, C- Reactive Protein 27.1 H D, Total Protein 6.8, Albumin 3.5, Globulin 3.3 H, Albumin/Globulin Ratio 1.1, Triglycerides 192 H, Cholesterol 133 L, LDL Cholesterol Direct 82.67 L, VLDL Cholesterol 38, HDL Cholesterol 14 L, Cholesterol/HDL Ratio 9.5 H I & O for Last 24 hours: Intake & Output 08/05/24 08/06/24 08/07/24 08/08/24 23:59 23:59 23:59 23:59 Intake Total 1708 / 2577 2489 / 3110 2892 / 3732 1190 / 1190 Output Total 0 / 0 0 / 0 0 / 0 0 / 0 Balance 1708 / 2577 2489 / 3110 2892 / 3732 1190 / 1190 Weight 105.859 kg 106.8 kg 106.8 kg 104.128 kg Intake & Output 08/05/24 08/06/24 08/07/24 08/08/24 23:59 23:59 23:59 23:59 Intake Total 1708 / 2577 2489 / 3110 2892 / 3732 1190 / 1190 Output Total 0 / 0 0 / 0 0 / 0 0 / 0 Balance 1708 / 2577 2489 / 3110 2892 / 3732 1190 / 1190 Weight 233 lb 6.066 oz 235 lb 7.259 oz 235 lb 7.259 oz 229 lb 9 oz Microbiology Reports for the Last 24 Hours: Microbiology 08/06/24 17:30 Blood Blood Culture - Preliminary NO GROWTH AFTER 24 HOURS 08/06/24 17:30 Blood Blood Culture - Preliminary NO GROWTH AFTER 24 HOURS Microbiology 08/06/24 17:30 Blood Blood Culture - Preliminary NO GROWTH AFTER 24 HOURS 08/06/24 17:30 Blood Blood Culture - Preliminary NO GROWTH AFTER 24 HOURS Constitutional Constitutional: no acute distress and obese *Routine HEENT Exam Head: Present normocephalic and atraumatic ENT: Present mucous membranes moist *Routine Neck Exam Neck: Present supple, full ROM and normal carotid upstroke; Absent JVD, carotid bruit or lymphadenopathy *Routine Respiratory Exam Respiratory: Present CTA bilaterally, normal respiratory effort, able to speak in complete sentences and symmetric chest movement *Routine Cardiovascular Exam Cardiovascular: Present RRR, Normal S1, Normal S2 and murmur; Absent gallop *Routine Abdominal Exam Abdominal: Present soft and normoactive bowel sounds; Absent tenderness, distended or organomegaly *Routine Extremities Exam Extremities: Present full ROM, pulses intact and normal capillary refill; Absent cyanosis, clubbing or edema *Routine Skin Exam Skin: Present intact and warm; Absent erythema *Routine Neurological Exam Neurological: Present alert, oriented X3 and CN II-XII intact; Absent sensory deficit or motor deficit Routine Psychiatric Exam Psychiatric: Present normal affect Assessment and Plan *Assessment and plan (1) Bacteremia: Status: Acute Category: Medical Code(s): R78.81 - Bacteremia (2) Hyperthyroidism, subclinical: Category: Medical Code(s): E05.90 - Thyrotoxicosis, unspecified without thyrotoxic crisis or storm (3) Pre-syncope: Status: Acute Category: Medical Code(s): R55 - Syncope and collapse (4) Methadone dependence: Status: Acute Category: Medical Code(s): F11.20 - Opioid dependence, uncomplicated (5) Presence of prosthetic heart valve: Status: Acute Category: Medical Code(s): Z95.2 - Presence of prosthetic heart valve Plan This is a 34-year-old female with a complicated history of intravenous drug use with last reported use April 2023. She reports 3 tricuspid valve replacements most recently November 2023 at [facility]. Previously at [facility] in [facility] and . On chronic methadone therapy. Blood cultures MSSA positive from admission, repeat cultures remain negative at >24hrs. No fever overnight. Continues to require inpatient management. Problems addressed as follows: Bacteremia Presence of prosthetic tricuspid heart valve -All 4 blood cultures positive for staph species, sensitivities show MSSA. Continuing cefepime 2 g twice daily and vancomycin IV. Repeat blood cultures pending. Will de-escalate if they show negative at 48 hours. - PRICE today revealed tricuspid vegetation. [facility] consulted and made aware, accepted by cardiothoracic surgery. Waitlisted at this time. ?Patient continues to remain hemodynamically stable. No leukocytosis. Alert, active, ambulating. 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 Electrolyte abnormalities: Repleting potassium, magnesium. Subclinical hyperthyroidism Thyroid ultrasound showing enlarged thyroid but no discrete nodules. Continue propranolol 10 mg twice daily. Outpatient follow-up with PCP and endocrinology Presyncope History of tricuspid valve replacement x 3 Chronically on loop diuretic therapy Methadone dependence ED ECG with QTc 484 MS continue methadone 100 mg daily Full code Regular diet
--- NOTE | 2024-08-08 17:10 | P.DS_ITS ---
General Admission date:: 08/03/24 HPI HPI HPI: This is a 34-year-old female that presents to [facility] ED for evaluation of generalized weakness over a couple weeks not improving with home care. She describes a significant cardiovascular history with her previous intravenous drug use. She reports 3 tricuspid valve replacements with her most recent in November 2023 at [facility]. She reports no IV drug use since April 2023. Her significant other at bedside characterized as fianc? supports her non-use history over the past year. She is currently on methadone therapy. She is uncertain of QTc monitoring. She does not recall her last echocardiogram. I am accompanied by Mera RN who assists with the history. She describes recent visits to urgent treatment centers for her weakness concerns. Her weakness is characterized as non-room spinning sensation characterized as dizziness with standing, I also get lightheaded with associated shortness of air. She reports intermittent tachycardia. She describes a sensation of almost passing out. She does voice concern with an antibiotic reaction noting that she is allergic to Augmentin but was prescribed this medication with a recent [facility] evaluation. In the ED she had 2 ECGs with the second identifying QTc 484 MS. Her potassium was 2.8 and her magnesium is pending at the time of admission. Her TSH was 0.3 and her total T4 was 12.4. Free T4 was normal at 1.79. She reports that she is already feeling better with fluid resuscitation. Hospital Course Hospital Course Hospital Course: This is a 34-year-old female with a complicated history of intravenous drug use with last reported use April 2023. She reports 3 tricuspid valve replacements most recently November 2023 at [facility]. Previously at [place] in [facility]. On chronic methadone therapy. Blood cultures MSSA positive from admission, repeat cultures remain negative at >24hrs. No fever overnight. Continues to require inpatient management. Problems addressed as follows: Bacteremia Presence of prosthetic tricuspid heart valve ? History of IV drug use, with 3 tricuspid valve replacement with her most recent in November 2023 at [facility]. She reports no IV drug use since April 2023. 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 - Blood cultures positive for staph species, sensitivities show MSSA. Started on empiric IV vancomycin, cefepime. De-escalated to vancomycin after repeat blood cultures did not show growth to date at 36 hours. - PRICE today revealed tricuspid vegetation. [facility] consulted and made aware, accepted by cardiothoracic surgery. ? Patient continues to remain hemodynamically stable. No leukocytosis. Alert, active, ambulating, and tolerating p.o. intake. 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 Electrolyte abnormalities: Repleting potassium, magnesium. Subclinical hyperthyroidism Thyroid ultrasound showing enlarged thyroid but no discrete nodules. Continue propranolol 10 mg twice daily. Outpatient follow-up with PCP and endocrinology Presyncope History of tricuspid valve replacement x 3 Chronically on loop diuretic therapy Methadone dependence ED ECG with QTc 484 MS continue methadone 100 mg daily Exam Data for Last 24 hours Vital signs and Labs for Last 24 Hours: Temp Pulse Resp BP Pulse Ox O2 Del Method O2 Flow Rate 98 F 65 18 125/68 95 Room Air 2 08/08/24 15:00 08/08/24 15:00 08/08/24 15:00 08/08/24 15:00 08/08/24 15:00 08/08/24 16:44 08/08/24 12:10 Laboratory Results - last 24 hr 08/07/24 18:15: Vancomycin Trough 10.7 H 08/08/24 06:45: WBC 6.6 D, RBC 3.78 L, Hgb 11.1 L, Hct 34.9 L, MCV 92.4, MCH 29.3, MCHC 31.7 L, RDW 14.5, Plt Count 132 L, MPV 10.1, Neut % (Auto) 70.1, Lymph % (Auto) 20.7, [place] % (Auto) 7.0, Eos % (Auto) 1.5, Baso % (Auto) 0.7, Neut # (Auto) 4.6, Lymph # (Auto) 1.4, [place] # (Auto) 0.5, Eos # (Auto) 0.1, Baso # (Auto) 0.0, ESR 63 H, Sodium 136, Potassium 4.3, Chloride 106, Carbon Dioxide 28, Anion Gap 6.3, BUN 7 D, Creatinine 0.60, Estimated Creat Clear 213, Estimated GFR 113, Est GFR ( Amer) 137, Glucose 104 H, Calcium 8.6, Magnesium 1.8, Total Bilirubin 0.5, AST 23, ALT 15, Alkaline Phosphatase 95, C- Reactive Protein 27.1 H D, Total Protein 6.8, Albumin 3.5, Globulin 3.3 H, Albumin/Globulin Ratio 1.1, Triglycerides 192 H, Cholesterol 133 L, LDL Cholesterol Direct 82.67 L, VLDL Cholesterol 38, HDL Cholesterol 14 L, Cholesterol/HDL Ratio 9.5 H I & O for Last 24 hours: Intake & Output 08/05/24 08/06/24 08/07/24 08/08/24 23:59 23:59 23:59 23:59 Intake Total 1708 / 2577 2489 / 3110 2892 / 3732 1190 / 1190 Output Total 0 / 0 0 / 0 0 / 0 0 / 0 Balance 1708 / 2577 2489 / 3110 2892 / 3732 1190 / 1190 Weight 105.859 kg 106.8 kg 106.8 kg 104.128 kg Microbiology Reports for the Last 24 Hours: Microbiology 08/06/24 17:30 Blood Blood Culture - Preliminary NO GROWTH AFTER 24 HOURS 08/06/24 17:30 Blood Blood Culture - Preliminary NO GROWTH AFTER 24 HOURS Results Data Completed and Pending Labs on day of discharge: Labs from last 24 hours 08/08/24 08/07/24 06:45 18:15 WBC 6.6 D RBC 3.78 L Hgb 11.1 L Hct 34.9 L MCV 92.4 MCH 29.3 MCHC 31.7 L RDW 14.5 Plt Count 132 L MPV 10.1 Neut % (Auto) 70.1 Lymph % (Auto) 20.7 [place] % (Auto) 7.0 Eos % (Auto) 1.5 Baso % (Auto) 0.7 Neut # (Auto) 4.6 Lymph # (Auto) 1.4 [place] # (Auto) 0.5 Eos # (Auto) 0.1 Baso # (Auto) 0.0 ESR 63 H Sodium 136 Potassium 4.3 Chloride 106 Carbon Dioxide 28 Anion Gap 6.3 BUN 7 D Creatinine 0.60 Estimated Creat Clear 213 Estimated GFR 113 Est GFR ( Amer) 137 Glucose 104 H Calcium 8.6 Magnesium 1.8 Total Bilirubin 0.5 AST 23 ALT 15 Alkaline Phosphatase 95 C-Reactive Protein 27.1 H D Total Protein 6.8 Albumin 3.5 Globulin 3.3 H Albumin/Globulin Ratio 1.1 Triglycerides 192 H Cholesterol 133 L LDL Cholesterol Direct 82.67 L VLDL Cholesterol 38 HDL Cholesterol 14 L Cholesterol/HDL Ratio 9.5 H Vancomycin Trough 10.7 H Preliminary micro results at discharge 08/06/24 17:30 Blood Culture - Preliminary Blood NO GROWTH AFTER 24 HOURS 08/06/24 17:30 Blood Culture - Preliminary Blood NO GROWTH AFTER 24 HOURS DS: Diagnosis Discharge Diagnosis (1) Bacteremia: Status: Acute Code(s): R78.81 - Bacteremia (2) Hyperthyroidism, subclinical: Code(s): E05.90 - Thyrotoxicosis, unspecified without thyrotoxic crisis or storm (3) Pre-syncope: Status: Acute Code(s): R55 - Syncope and collapse (4) Methadone dependence: Status: Acute Code(s): F11.20 - Opioid dependence, uncomplicated (5) Presence of prosthetic heart valve: Status: Acute Code(s): Z95.2 - Presence of prosthetic heart valve Meds Home Medications and Allergies Home Medications ?Medication ?Instructions ?Recorded ?Confirmed ?Type methadone 10 mg/5 mL oral solution 100 mg PO DAILY addiction 05/12/22 08/03/24 History azithromycin 250 mg tablet 250 mg PO UD DOSE PK #6 tabs 08/02/24 08/03/24 Rx (Zithromax) hypcptxjpybbvpa-lauoqlqwtmhstoi-ND 5 ml PO Q6H PRN Cough #240 mL 08/02/24 08/03/24 Rx 2 mg-30 mg-10 mg/5 mL oral syrup (Bromfed DM) furosemide 20 mg tablet 20 mg PO DAILY 08/02/24 08/03/24 History methylprednisolone 4 mg tablets in 4 mg PO DIRECTED 6 days #21 tabs 08/02/24 08/03/24 Rx a dose pack aspirin 81 mg tablet,delayed 81 mg PO DAILY 08/03/24 08/03/24 History release pantoprazole 40 mg tablet,delayed 40 mg PO DAILY #0 tabs 08/08/24 Rx release propranolol 20 mg tablet 10 mg (1/2 x 20 mg) PO BID #0 tabs 08/08/24 Rx vancomycin 1.75 gram/350 mL in 1.75 g (350 mL) IV Q12H #0 mL 08/08/24 Rx diluent combination IV piggyback New Prescriptions to Start Prescriptions: Allergies Allergy/AdvReac Type Severity Reaction Status Date / Time amoxicillin [From Augmentin] Allergy Rash Verified 08/02/24 15:56 clavulanic acid Allergy Rash Verified 08/02/24 15:56 [From Augmentin] Sulfa (Sulfonamide Allergy Rash Verified 08/02/24 15:56 Antibiotics) Discharge Plan Disposition Patient Disposition: Xfer Short-Term Hosp Condition: Good Discharge Order Discharge Orders: Discharge Order (Routine); Ordered 08/08/24 Ordered By: Rip Almaguer Follow up Plan Prescriptions/Medication Reconciliation: New pantoprazole 40 mg Tablet,Delayed Release (Dr/Ec) 40 mg PO DAILY Qty: 0 0RF propranolol 20 mg Tablet 10 mg PO BID Qty: 0 0RF vancomycin-diluent combo no.1 1.75 gram/350 mL Piggyback 1.75 g IV Q12H Qty: 0 0RF Continued methadone 10 mg/5 mL solution 100 mg PO DAILY Rx Instructions: CONFIRMED DOSE WITH [facility] [phone] WITH PRUDENCE MELENDEZ LPN. LAST DOSE WAS 08/02/24 IN OFFICE. furosemide 20 mg tablet 20 mg PO DAILY azithromycin [Zithromax] 250 mg tablet 250 mg PO UD DOSE PK Qty: 6 0RF Rx Instructions: Take two (2) tablets today, then one (1) tablet days #2 thru #5 methylprednisolone 4 mg Tablets,Dose Pack 4 mg PO DIRECTED 6 Days Qty: 21 0RF Rx Instructions: Take 1 pack as directed for 6 days jamhaxvmokmmlmu-qsslolhom-TX [Bromfed DM] 2-30-10 mg/5 mL Syrup 5 ml PO Q6H PRN (Reason: Cough) Qty: 240 0RF aspirin 81 mg Tablet,Delayed Release (Dr/Ec) 81 mg PO DAILY Problem Reconciliation Problems Reviewed?: Yes Patient Discharge Instructions Patient Instructions: Hyperthyroidism, DI for Hyperthyroidism, Hypokalemia, DI for Bacteremia-Adult Print Language: Stateless Providers Primary Care Provider: Provider,Referral Admit Provider: Ashutosh Laguna Attending Provider: Ashutosh Laguna
--- NOTE | 2024-08-08 18:17 | PC.NURSE ---
[facility] called and nurse is in a patient's room. Number left and [facility] is to return phone call at [phone] ext [phone].
--- NOTE | 2024-08-08 18:47 | PC.NURSE ---
Frankie called to nurse Carla ROACH. Ambulance called and said they should be here soon.
--- NOTE | 2024-08-08 19:12 | PC.NURSE ---
Patient left with EMS at 19:12.
--- NOTE | 2024-08-08 20:33 | PEERSUPPORT ---
Peer Support Note Patient Information Patient Information: DOS: 08/05/2024 PS Check-in PT disclosed personal background of addiction as well as her life now in recovery through an outpatient program with medication assisted treatment. She is able to identify her own actions in during active addiction that contributed to her current situations nd circumstances. PS provided empathetic listening to validate feelings. PT briefly discussed relationships in her life that have been affected as well as the hope to restore ones that are possible. PS explores services offered through the program she is enrolled in. PT does engage in therapy, when held accountable to do so. PS encouraged her to utilize those services during times of challenges for a safe and trusted place to process openly. PT has barriers such as family court legal issues that are in process now. Pts employer is compassionate and understanding of her time off from work is for her wellbeing and supportive. PS will follow up.
--- NOTE | 2024-08-08 20:45 | PEERSUPPORT ---
Peer Support Note Patient Information Patient Information: DOS: 08/08/2024 2:30 PM PS Follow Up Pt was anxious with waiting to hear from the provider with test results, that will determine her course of treatment. PS provides empathetic listens to validate feelings. Pt acted as advocate to provider and staff to discuss with patient in hopes to relieve some stress. 5:00PM PS Follow up Pt stated she is being transferred to and accepting of this as she knows its for her health that is priority. 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 PS and Pt discussed a plan of actions to stay connected to her recovery and openly processing thoughts and feelings through journaling, therapy, and practicing gratitude for mental and emotional regulation. Pt agrees to follow up calls to in patient> room 141. PS provides positive praise instilling hope for her strengths during challenging times.
--- NOTE | 2024-08-11 22:30 | PEERSUPPORT ---
Peer Support Note Patient Information Patient Information: DOS: 08/11/2024 PS attempted contact. No answer Left message PS will continue to follow up periodically.
== END 2024-08-08 19:15 | disposition short-term general hospital (02) | DRG 872 ==
LOC: ER 12:40 → 2ND 13:01
PROVIDERS: Internal Medicine; Internal Medicine Adolescent Medicine; Nurse Practitioner Family; Admitting Provider Family Medicine; Emergency Provider Emergency Medicine; Visit Provider Family Medicine
DX: R78.81 Bacteremia (principal); F11.20 Opioid dependence, uncomplicated; E05.90 Thyrotoxicosis, unspecified without thyrotoxic crisis or storm; E03.9 Hypothyroidism, unspecified; Z95.2 Presence of prosthetic heart valve; F17.210 Nicotine dependence, cigarettes, uncomplicated; R55 Syncope and collapse; E87.6 Hypokalemia
CPT/HCPCS: 36415; 71275; 76536; 80048; 80050; 80053; 80061; 80202; 80307; 81001; 82607; 82803; 83540; 83550; 83735; 83880; 84145; 84436; 84439; 84443; 84481; 84484; 84703; 85007; 85025; 85651; 86140; 87040; 87077; 87081; 87086; 87186; 87636; 93005; 93270; 93306; 93312; 93319; 99212; 99214; 99291; G0463; J0131; J1650; J1885; J2250; J2405; J2550; J3370; J3475; J3480; J7030; J7120; Q9967

== ENCOUNTER 2024-09-26 13:03 | Outpatient (CLI) | payer MEDICAID, SELFPAY | END 2024-09-26 23:59 | disposition home or self-care (01) | LOC: LAB 13:06 | PROVIDERS: PCP Nurse Practitioner Family; Visit Provider Student in an Organized Health Care Education/Training Program | DX: T82.6XXA Infection and inflammatory reaction due to cardiac valve prosthesis, initial encounter (principal); I38 Endocarditis, valve unspecified | CPT/HCPCS: 36415; 87040 ==

== ENCOUNTER 2024-10-03 08:12 | Outpatient (CLI) | payer MEDICAID, SELFPAY ==
--- NOTE | 2024-10-03 | CA_ITS ---
APPROVED REPORT EXAM: Comprehensive 2D, Doppler, and color-flow Echocardiogram [employer] Assistant: Cindy Bertrand RT(R) Ht: 5 ft 8 in Wt: 205lbs BSA: 2.07 BP: 120/72 mmHg Indications: hx of endocarditis, smoker, hx of bradycardia, hx of syncope, hx of TVR x 3, prior hx of IVDU(last used 2022), PRICE and TTE done 08/03/24. 2D Dimensions LA Volume 36.60 mL LA Volume Index 17.68 mL/m2 (M/F) 16-34 EF AP4 46.20 % GL Strain -14.1 % M-Mode Dimensions RVDd 2.09 cm (0.9-2.6) LA Diam 3.35 cm (1.9-4.0) LVDd 5.24 cm (3.5-5.7) LVDs 3.84 cm (3.5-5.7) IVSd 0.80 cm (0.6-1.1) PWd 0.95 cm (0.6-1.1) EF (Teich) 51.80% FS 26.70% EDV (Teich) 131.80 mL ESV (Teich) 63.50 mL LV Diastology E Decel Time 150 (160-240 msec) E/A Ratio 1.2 Aortic Valve CYNDI Index 1.19 cm2/m2 AoV Peak Brad. 132.0 (50-130 cm/s) AO Peak GR. 7.00 mmHg AO Mean GR. 3.40 (<5 mmHg) AO VTI 25.7 (18-25 cm) CYNDI (VTI) 2.53 (2.5-4.5 cm2) Mitral Valve MV E Max Brad. 109.0 (40-130 cm/s) MV A Velocity 89.0 (40-130 cm/s) E/A Ratio 1.23 MV PHT 44.0 ms Tricuspid Valve TV Vmax 181.50 (30-100 cm/s) Left Ventricle The left ventricle is normal size. The left ventricular systolic function is normal. The left ventricular ejection fraction is within the normal range. There is increased LV wall thickness. There is normal LV segmental wall motion. Diastolic function is indeterminate. LVEF is 55%. Right Ventricle The right ventricle is moderately dilated. The right ventricular systolic function is mildly reduced. Atria The left atrium size is mildly dilated. The right atrium is severely dilated. There is no Doppler evidence of interatrial shunt. Aortic Valve The aortic valve opens well. No aortic regurgitation is present. Mitral Valve The mitral valve is normal in structure. No evidence of mitral valve stenosis. Mild mitral regurgitation. Tricuspid Valve s/p TVR The prosthesis is well-seated. Mean TV gradient is 10 mmHg Mild tricuspid regurgitation is present. No clear evidence of vegetation or obvious mobile echodensities. Pulmonic Valve The pulmonary valve is normal in structure. Moderate to severe pulmonic regurgitation. Great Vessels The aortic root is normal in size. The ascending aorta is not well-visualized. IVC is normal in size and collapses >50% with inspiration. Pericardium There is no pericardial effusion. Other Information Study Quality: Fair Conclusion Normal LV systolic function (LVEF 55%). Moderate RV dilation with mild reduction in RV function. Biatrial dilation. Mild MR. Moderate to severe SD. s/p TVR. Prosthesis is well-seated. Elevated transvalvular gradient 9 mmHg. Mild TR. In the setting of recent TVR endocarditis (diagnosed on PRICE 08/08/2024) and now with further elevation in transvalvular gradients, as well as new significant pulmonic regurgitation, further evaluation is recommended to evaluate for evolving or persistent endocarditis vs. endocarditis complication. Electronically signed by : Rubina Grimes MD 10/03/2024 12:58:32
== END 2024-10-03 23:59 | disposition home or self-care (01) ==
LOC: RT 08:12
PROVIDERS: PCP Nurse Practitioner Family; Visit Provider Thoracic Surgery (Cardiothoracic Vascular Surgery)
DX: B33.21 Viral endocarditis (principal)
CPT/HCPCS: 93306

== ENCOUNTER 2025-01-10 13:56 | Emergency (ER) | payer MEDICAID, SELFPAY ==
[2025-01-10 13:57] VITALS: BP 130/85; PULSE 73; RESP 18; TEMP 36.6; O2SAT 97; BMI 31.0
[2025-01-10 14:08] LABS: Microscopic, Urine URINE MICROSCOPIC (MICROSCOPIC)
[2025-01-10 14:12] LABS: Appearance,Urine CLOUDY (Clear); Bilirubin,Urine Negative (Negative); Blood, Urine 2+ (Negative); Color,Urine YELLOW (Yellow); Glucose,Urine (UA) Negative (Negative); Ketones,Urine Negative (Negative); Leukocyte Esterase,Urine 1+ (Negative); Nitrate,Urine POSITIVE (Negative); Protein,Urine Negative (Negative); Specific Gravity, Urine >= 1.030 (1.005-1.030); Urobilinogen,Urine 0.2 EU/dl (0.2)
--- NOTE | 2025-01-10 14:12 | CT_ITS ---
FINAL REPORT TECHNIQUE: Thin section axial images were obtained from the lung bases to the pubic symphysis without IV contrast. Coronal and sagittal reconstruction images were obtained from the axial data. Exam was performed using dose reduction technique. This study was performed with techniques to keep radiation doses as low as reasonably achievable (ALARA). Individualized dose reduction techniques using automated exposure control or adjustment of mA and/or kV according to the patient's size were employed. CLINICAL HISTORY: R flank pain,h/o kidney stones COMPARISON: 06/23/2022 FINDINGS: There is a 6 mm nodule in the left lower lobe of the lung, best seen on image #7 of series 3. This was not present on the prior examination, however given the age of the patient this likely is postinflammatory. There are no renal or ureteral stones. There is no hydronephrosis or perinephric stranding. The gallbladder has been surgically resected. The remaining unenhanced solid abdominal organs are unremarkable. There is no evidence of small bowel obstruction. The appendix is normal. GI tract is without acute abnormality. The uterus and ovaries are unremarkable for age. The bladder is incompletely distended, and there is abnormal attenuation surrounding the bladder which may be secondary to cystitis. Physiologic free fluid is present in the pelvis. There is no lymphadenopathy or ascites. No acute osseous abnormality is identified. IMPRESSION: No evidence of obstructing renal or ureteral stones, and no hydronephrosis. The bladder is incompletely distended, and there is some abnormal attenuation surrounding the bladder that may represent cystitis. Reviewed, Interpreted and Dictated by Lilian Chen MD Transcribed by Autumn Gomez Authenticated and [facility]
[2025-01-10 14:13] LABS: Urine Pregnancy, HCG Qual. Negative (Negative)
--- NOTE | 2025-01-10 14:13 | HMH.EDGENADL ---
Discharge Plan Disposition Patient Disposition: Home, Self-Care Condition: Good Prescriptions Prescriptions: New nitrofurantoin monohyd/m-cryst [Macrobid] 100 mg capsule 100 mg PO BID 5 Days Qty: 10 0RF Rx Instructions: must administer with a meal/food ondansetron 4 mg tablet,disintegrating 4 mg PO Q8H PRN (Reason: nausea and vomiting) 4 Days Qty: 12 0RF No Action methadone 10 mg/5 mL solution 100 mg PO DAILY Rx Instructions: CONFIRMED DOSE WITH [facility] [phone] WITH PRUDENCE MELENDEZ LPN. LAST DOSE WAS 08/02/24 IN OFFICE. furosemide 20 mg tablet 20 mg PO DAILY azithromycin [Zithromax] 250 mg tablet 250 mg PO UD DOSE PK Qty: 6 0RF Rx Instructions: Take two (2) tablets today, then one (1) tablet days #2 thru #5 methylprednisolone 4 mg Tablets,Dose Pack 4 mg PO DIRECTED 6 Days Qty: 21 0RF Rx Instructions: Take 1 pack as directed for 6 days hsqsqpzqghezwob-oqyaotudz-MB [Bromfed DM] 2-30-10 mg/5 mL Syrup 5 ml PO Q6H PRN (Reason: Cough) Qty: 240 0RF aspirin 81 mg Tablet,Delayed Release (Dr/Ec) 81 mg PO DAILY pantoprazole 40 mg Tablet,Delayed Release (Dr/Ec) 40 mg PO DAILY Qty: 0 0RF propranolol 20 mg Tablet 10 mg PO BID Qty: 0 0RF vancomycin-diluent combo no.1 1.75 gram/350 mL Piggyback 1.75 g IV Q12H Qty: 0 0RF Referrals Follow up/Referrals: Sia Verma APRN [Primary Care Provider] - See instructions Activity Restrictions/Add. Instructions Additional Instructions/Restrictions: You were evaluated in the emergency department today and diagnosed with urinary tract infection. Please hand picker your prescription for antibiotic and take the full course as prescribed. 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 Take Tylenol and ibuprofen every 4-6 hours as needed for pain/fever. Follow-up with your primary care provider. Return to the emergency department for new or worsening symptoms. Clinical Impressions Clinical Impression: UTI (urinary tract infection) Stand Alone Forms Stand Alone Forms: Work/School Release Instructions Patient Instructions: DI for Urinary Tract Infection (UTI) Print Language Print Language: Mexican Discharge ED Provider: Brianda Ledesma General Adult HPI General Chief complaint: Abdominal Pain Stated complaint: abd/side pain Time Seen by Provider: 01/10/25 14:05 Mode of Arrival: Ambulatory Source of Information: Patient Limitations: No Limitations Description of Symptoms (Recalled from ER Triage Doc. by RN): Patient reports possible kidney stones. States she has right flank pain and pain with urination that started approx 2 weeks ago. History of Present Illness HPI narrative: This patient is a 34-year-old female with history of methadone dependence, prior cholecystectomy, tricuspid valve replacement, hypothyroidism presenting to the emergency department for evaluation with concern for right flank pain and pain with urination that started few days ago. She states that she is concerned she could have a urinary tract infection or kidney stone. She states that she is hurting up in the right side of her back. She has nausea, but no fevers, chills, vomiting, changes bowel movements, or other concerns. She denies any concern she could be . Related Data Home Medications ?Medication ?Instructions ?Recorded ?Confirmed methadone 10 mg/5 mL oral solution 100 mg PO DAILY addiction 05/12/22 08/03/24 furosemide 20 mg tablet 20 mg PO DAILY 08/02/24 08/03/24 aspirin 81 mg tablet,delayed 81 mg PO DAILY 08/03/24 08/03/24 release Previous Rx's ?Medication ?Instructions ?Recorded azithromycin 250 mg tablet 250 mg PO UD DOSE PK #6 tabs 08/02/24 (Zithromax) lkqejyjjbecbexd-ikbmqyfkakjvxmn-XF 5 ml PO Q6H PRN Cough #240 mL 08/02/24 2 mg-30 mg-10 mg/5 mL oral syrup (Bromfed DM) methylprednisolone 4 mg tablets in 4 mg PO DIRECTED 6 days #21 tabs 08/02/24 a dose pack pantoprazole 40 mg tablet,delayed 40 mg PO DAILY #0 tabs 08/08/24 release propranolol 20 mg tablet 10 mg (1/2 x 20 mg) PO BID #0 tabs 08/08/24 vancomycin 1.75 gram/350 mL in 1.75 g (350 mL) IV Q12H #0 mL 08/08/24 diluent combination IV piggyback nitrofurantoin 100 mg PO BID 5 days #10 caps 01/10/25 monohydrate/macrocrystals 100 mg capsule (Macrobid) ondansetron 4 mg disintegrating 4 mg PO Q8H PRN nausea and 01/10/25 tablet vomiting 4 days #12 tabs Allergies Allergy/AdvReac Type Severity Reaction Status Date / Time amoxicillin (From Augmentin) Allergy Rash Verified 08/02/24 15:56 clavulanic acid (From Allergy Rash Verified 08/02/24 15:56 Augmentin) Sulfa (Sulfonamide Allergy Rash Verified 08/02/24 15:56 Antibiotics) [facility] Disclaimer: The information contained in this section may have been updated after the patient was seen, as this information can be updated by other users. Medical History Lung nodule SIRS (systemic inflammatory response syndrome) Fever Acute viral syndrome Strain of left calf muscle Pharyngitis URI (upper respiratory infection) Abnormal electrocardiogram [ECG] [EKG] Sinus tachycardia Facial rash Urgency of micturition Viral syndrome Cough History of bacterial endocarditis Kidney calculi Depression Asthma Impetigo Cellulitis Impetigo Abdominal pain Moderate tricuspid regurgitation Dyspnea History of drug use Tobacco use Sinus bradycardia Surgical History Hx laparoscopic cholecystectomy Hx of right heart catheterization Tricuspid valve replaced Family History Other No significant family history Social History Smoking Status: Current every day smoker tobacco type: cigarettes packs per day: 1 alcohol intake: never substance use type: former substance user and heroin current occupational status: other Travel in the last 8 weeks: Inside the [place] Have you lived/traveled outside US in past 30 days?: No Contact w/someone who lives/traveled outside US past 30 days?: No Exposure to someone with infectious disease in past 14 days?: No Do you have a fever (greater than 100.4 F or 38 C)?: No Have you tested positive for COVID-19: No Exposed to someone with COVID-19 in past 14 days?: No Do you have a sore throat?: No Do you have a cough?: No Do you have any weakness?: No Do you have any diarrhea?: No Are you experiencing any unusual bleeding?: No Do you have any muscle aches/pain?: No Do you have any abdominal pain?: Yes Are you experiencing loss of taste or smell?: No Other Medical History Have you received the Flu Vaccine for this season: No Have you received the Pneumonia Vaccine: No ROS Obtained: Yes All systems reviewed & no additional complaints except as documented Physical Exam General General appearance: alert and in no apparent distress Head Head exam: atraumatic and normocephalic Eye Eye exam: Present normal appearance, PERRL and EOMI ENT ENT exam: Present normal exam, normal oropharynx, mucous membranes moist and normal external ear exam Neck Neck exam: Present normal inspection, full ROM and trachea midline; Absent tenderness Chest Chest inspection: Present normal inspection and symmetric chest wall rise; Absent tenderness Respiratory Respiratory exam: Present normal lung sounds bilaterally; Absent respiratory distress, wheezes, stridor or accessory muscle use Cardiovascular Cardiovascular exam: Present regular rate and normal rhythm Abdominal Exam Abdominal exam: Present soft; Absent distention, tenderness or guarding Extremities Exam Extremities exam: Present normal inspection, full ROM and normal capillary refill; Absent tenderness or edema Back Exam Back exam: Present normal inspection and full ROM; Absent tenderness Neurological Exam Neurological exam: Present alert, oriented X3, CN II-XII intact and normal gait; Absent motor sensory deficit Psychiatric Psychiatric exam: Present normal affect and normal mood Skin Skin exam: Present warm and dry Medical Decision Making Medical Records Medical records reviewed: Yes I reviewed the patient's medical records. Screening: Per USPSTF and CDC recommendations, given the prevalence of disease in our region, it is our hospital?s policy to screen for HIV and viral Hepatitis for all patients aged 18 and over and those with ongoing risk factors. Cory Inquiry Pt receiving controlled substance: No Vital Signs: 01/10/25 13:57 01/10/25 15:45 Temperature 97.9 F 97.9 F Temperature Source Oral Pulse Rate 53 L Pulse Rate [Radial] 73 Respiratory Rate 18 15 Blood Pressure 120/68 Blood Pressure [Right Arm] 130/85 Blood Pressure Mean [Right Arm] 100 Blood Pressure Source [Right Arm] Automatic Cuff Blood Pressure Position [Right Arm] Sitting 02 Sat by Pulse Oximetry 97 Oxygen Delivery Method Room Air Room Air Lab Data Lab results reviewed: Yes I reviewed the patient's lab results. Lab Results 01/10/25 13:59: Urine Color Yellow, Urine Appearance Cloudy, Urine pH 6.0, Ur Specific [place] >= 1.030, Urine Protein Negative, Urine Glucose (UA) Negative, Urine Ketones Negative, Urine Blood 2+ A, Urine Nitrate Positive A, Urine Bilirubin Negative, Urine Urobilinogen 0.2, Ur Leukocyte Esterase 1+ A, Urine RBC None, Urine WBC 20-50, Ur Squamous Epith Cells 5-10, Urine Bacteria 3+, Urine HCG, Qual Negative 01/10/25 14:49: WBC 7.2, RBC 4.37, Hgb 11.8 L, Hct 36.4 L, MCV 83.3, MCH 27.0, MCHC 32.4, RDW 13.7, Plt Count 99 L, MPV 12.1 H, Neut % (Auto) 56.7, Lymph % (Auto) 33.4, [place] % (Auto) 8.5, Eos % (Auto) 1.0, Baso % (Auto) 0.3, Neut # (Auto) 4.1, Lymph # (Auto) 2.4, [place] # (Auto) 0.6, Eos # (Auto) 0.1, Baso # (Auto) 0.0, Sodium 141, Potassium 4.1, Chloride 104, Carbon Dioxide 29, Anion Gap 12.1, BUN 15, Creatinine 0.80, Estimated Creat Clear 146, Estimated GFR 81, Est GFR ( Amer) 98, Glucose 100, Calcium 9.1, Total Bilirubin 0.7, AST 29, ALT 22, Alkaline Phosphatase 86, Total Protein 7.1, Albumin 4.4, Globulin 2.7, Albumin/Globulin Ratio 1.6 01/10/25 14:49 01/10/25 14:49 Orders (Tests/Meds): ED MEDICATIONS Discontinued Medications Generic Name Dose Route Start Last Admin Trade Name Freq PRN Reason Stop Dose Admin Acetaminophen 1,000 mg 01/10/25 14:12 01/10/25 15:02 Acetaminophen 500mg Tab PO 01/10/25 14:13 1,000 mg ONCE ONE Administration Lactated Ringer's 1,000 mls @ 999 mls/hr 01/10/25 14:12 01/10/25 15:03 Lactated Ringer's 1000 Ml Bag IV 01/10/25 15:12 999 mls/hr .Q1H1M ONE Administration Ketorolac Tromethamine 15 mg 02/19/25 14:12 01/10/25 15:02 Ketorolac 30mg/Ml Vial IV 01/10/25 14:13 15 mg ONCE ONE Administration Nitrofurantoin Macrocrystals 100 mg 01/10/25 15:22 01/10/25 15:39 Nitrofurantoin 100mg Capsule PO 01/10/25 15:23 100 mg ONCE ONE Administration Ondansetron HCl 4 mg 01/10/25 14:12 01/10/25 15:02 Ondansetron 4mg/2ml Vial IV 01/10/25 14:13 4 mg ONCE ONE Administration ORDERS Category Date Time Status CT abdomen pelvis wo con Stat Cat Scan 01/10/25 14:12 Completed Complete Blood Count Auto Diff Stat Lab 01/10/25 14:49 Completed Comprehensive Metabolic Panel Stat Lab 01/10/25 14:49 Completed HIV Combo Stat Lab 01/10/25 14:49 Received Hepatitis C Ab Qual. W/ RFX Stat Lab 01/10/25 14:49 Received Lipase Stat Lab 01/10/25 14:49 Received UA [Urinalysis and Microscopic] Stat Lab 01/10/25 13:59 Completed Urine , HCG Qual. Stat Lab 01/10/25 13:59 Completed Urine Culture Stat Micro 01/10/25 13:59 Received Medical Decision Narrative: In summary, this patient is a 34-year-old female presenting to the Emergency Department for evaluation of right flank pain and pain with urination. Differential diagnoses considered include but are not limited to urolithiasis, pyelonephritis, cystitis, colitis. Ruling out the most morbid conditions drove assessment. It should be noted patient's history includes methadone dependence, tricuspid valve replacement, hyperthyroid which may or may not be at goal therapy. This complicates all aspects of care by increasing patient's risk for morbidity. On exam, the patient is sitting upright in no acute distress. She has benign abdominal exam. Workup included CBC, CMP, lipase, urinalysis, test, CT abdomen pelvis without IV contrast. She is given a bolus of IV fluids as well as IV Toradol, oral Tylenol, IV Zofran.. I independently interpreted CT scan prior to the radiologist read and noted no obvious obstructive uropathy. Please see their read for final interpretation. Labs were obtained that demonstrated reassuring CBC, reassuring chemistry with normal kidney function. Urine is concerning for infection but no proteinuria On reassessment, the patient is sitting upright in no acute distress with benign abdominal exam. I feel she likely has UTI as cause of symptoms. I feel that she is appropriate for discharge with a prescription for Macrobid. She was also given prescription for Zofran to have as needed for nausea and vomiting. Strict return precautions given and she was discharged after all questions were answered with instructions for close outpatient follow-up. Critical Care Critical Care Time Critical Care Time: No
--- NOTE | 2025-01-10 14:26 | PC.NURSE ---
PT in CT scan
[2025-01-10 14:55] LABS: Basophils % 0.3 % (0.1-2.0); Eosinophils # 0.1 K/mm3 (0.0-0.4); Hematocrit 36.4 % (37.0-47.0); Hemoglobin 11.8 g/dL (12.2-16.2); Lymphocytes # 2.4 K/mm3 (0.7-4.5); Lymphocytes % 33.4 % (10-50); Mean Corpuscular HGB Conc 32.4 g/dL (31.8-35.4); Mean Corpuscular Volume 83.3 fl (81-99); Mean Platelet Volume 12.1 fl (7.4-10.4); Monocytes # 0.6 K/mm3 (0.1-1.0); Monocytes % 8.5 % (1.7-9.3); Neutrophils # 4.1 K/mm3 (1.8-7.8); Neutrophils % 56.7 % (37.0-80.0); Platelet Count 99 K/mm3 (142-424); Red Blood Count 4.37 M/mm3 (4.20-5.40); Red Cell Distribution Width 13.7 % (11.5-17.5); White Blood Count 7.2 K/mm3 (4.8-10.8)
[2025-01-10] MEDS: ACETAMINOPHEN 500MG TAB 1000 MG PO (15:02)
[2025-01-10] MEDS: KETOROLAC 30MG/ML VIAL 15 MG IV (15:02)
[2025-01-10] MEDS: ONDANSETRON 4MG/2ML VIAL 4 MG IV (15:02)
[2025-01-10] MEDS: LACTATED RINGERS 1000ML 1,000 ML 999 ML IV (15:03)
[2025-01-10 15:05] LABS: Albumin Level 4.4 g/dl (3.5-5.0); Chloride 104 mmol/L (98-107); Potassium 4.1 mmoL/L (3.5-5.1); Sodium 141 mmol/L (136-145)
[2025-01-10 15:08] LABS: Alanine Aminotransferase 22 U/L (12-78); Albumin/Globulin Ratio 1.6 (1.1-1.8); Alkaline Phosphatase 86 U/L (38-126); Anion Gap 12.1 mEq/L (5-15); Aspartate Amino Transferase 29 U/L (14-36); Bilirubin,Total 0.7 mg/dl (0.2-1.3); Blood Urea Nitrogen 15 mg/dl (7-17); Carbon Dioxide 29 mmol/L (22.0-30.0); Creatinine Clearance Estimated 146 mL/min (50-200); Estimated Glomerular Filt Rate 81 ml/min (>60); GFR (African American) 98 ML/MIN (>60); Globulin 2.7 g/dL (1.3-3.2); Total Protein,Serum 7.1 g/dl (6.3-8.2)
[2025-01-10 15:09] LABS: Calcium 9.1 mg/dl (8.4-10.2); Glucose 100 mg/dl (74-100)
[2025-01-10] MEDS: NITROFURANTOIN 100MG CAPSULE 100 MG PO (15:39)
[2025-01-10 15:40] LABS: Lipase 36 U/L (23-300)
[2025-01-10 15:45] VITALS: BP 120/68; PULSE 53; RESP 15; TEMP 36.6; O2SAT 100
[2025-01-10 15:49] LABS: Bacteria,Urine 3+ /lpf; WBC,Urine 20-50 #/hpf (0-3)
[2025-01-10 19:04] LABS: HIV Combo NEGATIVE (Negative)
[2025-01-10 19:11] LABS: Hepatitis C Ab Qual. W/ RFX REACTIVE (Negative)
--- NOTE | 2025-01-12 12:57 | PC.NURSE ---
UA DISCUSSED WITH DR MOSLEY, NO NEW ORDERS
== END 2025-01-10 15:47 | disposition home or self-care (01) ==
PROVIDERS: Emergency Provider Emergency Medicine; PCP Nurse Practitioner Family
DX: N39.0 Urinary tract infection, site not specified (principal); R10.31 Right lower quadrant pain; R30.9 Painful micturition, unspecified; F17.210 Nicotine dependence, cigarettes, uncomplicated
CPT/HCPCS: 74176; 80053; 81001; 81025; 83690; 85025; 86803; 87086; 87088; 87186; 87389; 87522; 96361; 96374; 96375; 99284; J1885; J2405; J7120

== ENCOUNTER 2025-07-19 20:30 | Emergency (ER) | payer MEDICAID, SELFPAY ==
[2025-07-19 20:42] VITALS: BP 109/80; PULSE 73; RESP 16; TEMP 36.6; O2SAT 96; BMI 30.4
--- NOTE | 2025-07-19 20:45 | ED_ITS ---
<Statement entered by Jono Shepherd MD - 07/19/25 21:40> I was consulted by the TING, and we discussed the complexity of the problems being addressed. I approve the treatment and management plan for this patient's care in the emergency department, thus performing a substantive portion of the medical decision making. Jono Shepherd MD Discharge Plan Disposition Patient Disposition: Home, Self-Care Condition: Good Prescriptions Prescriptions: No Action methadone 10 mg/5 mL solution 97 mg PO DAILY Rx Instructions: CONFIRMED DOSE WITH [facility] [phone] WITH PRUDENCE MELENDEZ LPN. LAST DOSE WAS 08/02/24 IN OFFICE. methylprednisolone [Medrol (Parker)] 4 mg tablets,dose pack See Rx Instructions PO PER PKG DIR Qty: 21 0RF Rx Instructions: PO PER PKG DIR for 6 days fluticasone propionate [Flonase Allergy Relief] 50 mcg/actuation spray,suspension 2 spray intranasal BID Qty: 16 3RF Rx Instructions: administer into each nostril aspirin 81 mg Tablet,Delayed Release (Dr/Ec) 81 mg PO DAILY ondansetron 4 mg tablet,disintegrating 4 mg PO Q8H PRN (Reason: nausea and vomiting) 4 Days Qty: 12 0RF Referrals Follow up/Referrals: Olga Perkins APRN [Primary Care Provider, Medical] - See instructions Activity Restrictions/Add. Instructions Additional Instructions/Restrictions: You were evaluated on an emergency basis. It is very important that you follow- up with your primary care provider and any specialist who we discussed within the next 2 days in order to better assess your health more comprehensively. For example, incidental findings on imaging or laboratory results that were performed today may be discovered, which do not require immediate medical care, but may impact your health in the future. If your symptoms worsen or persist, please return to the emergency department immediately for reassessment. Take all medications as prescribed. In queue for allowing me to participate in your health care, and I hope you feel better soon. Clinical Impressions Clinical Impression: Acute viral pharyngitis Instructions Patient Instructions: DI for Viral Pharyngitis Print Language Print Language: Croatian Discharge ED Provider: Jono Shepherd Adult HPI General Chief complaint: Upper Respiratory Infection Stated complaint: Sore Throat Time Seen by Provider: 07/19/25 20:48 Mode of Arrival: Ambulatory Source of Information: Patient Description of Symptoms (Recalled from ER Triage Doc. by RN): blisters on tongue/back of throat- painful- body aches, headache History of Present Illness HPI narrative: 35-year-old female presents the emergency department with her 17-year-old son for similar complaints. She reports sore throat with blisters on her tongue. Also states that she has had a headache with bodyaches. Denies fevers, nausea, vomiting, diarrhea. He has not had the medication for pain prior to arrival. Related Data Home Medications ?Medication ?Instructions ?Recorded ?Confirmed aspirin 81 mg tablet,delayed 81 mg PO DAILY 08/03/24 0 07/12/25 release methadone 10 mg/5 mL oral solution 97 mg PO DAILY shreya ction 07/12/25 07/12/25 Previous Rx's ?Medication ?Instructions ?Recorded ondansetron 4 mg disintegrating 4 mg PO Q8H PRN nausea and 01/10/25 tablet vomiting 4 days #12 tabs fluticasone propionate 50 2 spray intranasal BID #16 g trista 07/12/25 mcg/actuation nasal spray,suspension (Flonase Allergy Relief) methylprednisolone 4 mg tablets in See Rx Instructions PO PER PKG DIR 07/12/25 a dose pack (Medrol (Parker)) #21 tabs Allergies Allergy/AdvReac Type Severity Reaction Status Date / Time vancomycin Allergy Severe kidney Verified 07/12/25 09:48 failure amoxicillin (From Augmentin) Allergy Rash Verified 01/29/25 11:46 clavulanic acid (From Allergy Rash Verified 01/29/25 11:46 Augmentin) Sulfa (Sulfonamide Allergy Rash Verified 01/29/25 11:46 Antibiotics) [facility] Disclaimer: The information contained in this section may have been updated after the patient was seen, as this information can be updated by other users. Medical History (Updated 07/19/25 @ 21:22 by Lisa Weaver) Fluid level behind tympanic membrane of left ear Tympanosclerosis of left ear Retracted ear drum Decreased hearing of left ear Tinnitus of left ear Lung nodule SIRS (systemic inflammatory response syndrome) Fever Acute viral syndrome Strain of left calf muscle Pharyngitis URI (upper respiratory infection) Abnormal electrocardiogram [ECG] [EKG] Sinus tachycardia Facial rash Urgency of micturition Viral syndrome Cough History of bacterial endocarditis Kidney calculi Depression Asthma Impetigo Cellulitis Impetigo Abdominal pain Moderate tricuspid regurgitation Dyspnea History of drug use Tobacco use Sinus bradycardia Surgical History Hx laparoscopic cholecystectomy Hx of right heart catheterization Tricuspid valve replaced Family History Other No significant family history Social History (Updated 07/12/25 @ 09:52 by JERALD Gallegos) Smoking Status: Current every day smoker tobacco type: cigarettes packs per day: 1 alcohol intake: never substance use type: former substance user and heroin current occupational status: other Travel in the last 8 weeks?: None Have you lived/traveled outside US in past 30 days?: No Contact w/someone who lives/traveled outside US past 30 days?: No Exposure to someone with infectious disease in past 14 days?: No Do you have a fever (greater than 100.4 F or 38 C)?: No Have you tested positive for COVID-19?: No Exposed to someone with COVID-19 in past 14 days?: No Do you have a sore throat?: Yes Do you have a cough?: No Do you have any weakness?: No Do you have any diarrhea?: No Are you experiencing any unusual bleeding?: No Do you have any muscle aches/pain?: No Do you have any abdominal pain?: No Are you experiencing loss of taste or smell?: No Other Medical History Have you received the Flu Vaccine for this season: No Have you received the Pneumonia Vaccine: No ROS Obtained: Yes All systems reviewed & no additional complaints except as documented Constitutional Constitutional: Reports headache(s) ENT Ears, Nose, Mouth, and Throat: Reports headache(s), Reports odynophagia and Reports sore throat Gastrointestinal Gastrointestingal: Reports odynophagia Neurologic Neurologic: Reports headache(s) Physical Exam Narrative Physical exam: General: Awake, aware, in no acute distress HEENT: Normocephalic, the blisters that patient is referring to on her tongue are actually normal papilla. No erythema, exudate, or lesions present. No evidence of otitis media or externa on exam TMs are intact bilaterally. CV: RRR, no murmurs, rubs, or gallops Pulm: CTA bilaterally with no rhonchi, rales, wheezes ABD: Nontender, no swelling, guarding, or rebound tenderness Psych, appropriate mood and affect General General appearance: alert Respiratory Respiratory exam: Present normal lung sounds bilaterally Cardiovascular Cardiovascular exam: Present regular rate Neurological Exam Neurological exam: Present alert Medical Decision Making Medical Records Screening: Per USPSTF and CDC recommendations, given the prevalence of disease in our region, it is our hospital?s policy to screen for HIV and viral Hepatitis for all patients aged 18 and over and those with ongoing risk factors. Cory Inquiry Pt receiving controlled substance: No Vital Signs: 07/19/25 20:42 Temperature 98 F Temperature Source Temporal Artery Scan Pulse Rate [Right Radial] 73 Respiratory Rate 16 Blood Pressure [Right Arm] 109/80 L Blood Pressure Mean [Right Arm] 89 Blood Pressure Source [Right Arm] Automatic Cuff Blood Pressure Position [Right Arm] Sitting 02 Sat by Pulse Oximetry 96 Oxygen Delivery Method Room Air Lab Data Lab Results 07/19/25 20:44: Group A Strep Rapid Negative Orders (Tests/Meds): ED MEDICATIONS Discontinued Medications Generic Name Dose Route Start Last Admin Trade Name Freq PRN Reason Stop Dose Admin Acetaminophen 650 mg 07/19/25 20:58 07/19/25 21:07 Acetaminophen 325mg Tab PO 07/19/25 20:59 650 mg ONCE ONE Administration ORDERS Category Date Time Status Strep Scrn Group A (Rapid) Stat Lab 07/19/25 20:44 Completed Strep Screen Confirmation Stat Micro 07/19/25 20:44 Received Medical Decision Narrative: Initial impression of presenting illness: 35-year-old female presents emergency department with complaints of sore throat, headache, blisters on her tongue. She states she is not taking medication for pain prior to arrival. She denies nausea, vomiting, diarrhea, fevers. Differential diagnosis includes but is not limited to: Strep throat, viral illness Patient arrives hemodynamically stable, afebrile, without respiratory distress with vital signs interpreted by myself. Initial physical exam unremarkable. The blisters that patient is referring to on her tongue are actually normal papilla. No erythema, exudate. Exam is unremarkable Initial diagnostic plan: Tylenol for pain control, rapid strep Results from initial plan were reviewed and interpreted by myself, pertinent positives include: Patient strep test was negative. Interventions in the ED: Patient was given Tylenol for pain control. Patient was made aware of the results and the findings, upon reevaluation patient has remained stable throughout stay, symptoms remain stable. Upon reevaluation patient is resting comfortably in bed with no signs of acute distress. Consultation/discussion with other physicians: Discussed workup findings and patient's presentation with ED attending Dr. Bundy Disposition: Inform patient that her strep test was negative. Advised her symptoms are likely related to viral illness. Recommend that she continue with Tylenol and ibuprofen as needed for pain control. Also recommend that she incr ease her fluids and rest for the next several days. Ducted her to return to the emergency department any new or worsening symptoms. Patient made aware of findings and had a detailed discussion with symptomatic care and return precautions, patient voiced understanding. Critical Care Critical Care Time Critical Care Time: No
--- OUTSIDE RECORDS SUMMARY | 2025-07-19 20:54 | XMS_ITS | Clinical Summary ---
Author Organization [facility] Address [address] [place] [address] Phone Care Team Providers Care Maintenance Of Way Clerk Name Role Phone Unavailable Primary Care Provider Unavailabl e Allergies Active Allergy Reactions Criticality Noted Date Comments Amoxicillin-Pot Clavulanate Swelling 12/14/2011 Pt states this causes swelling to feet. Cashew Nut Rash 12/27/2017 Peanut Shortness Of Breath,Swelling High 06/06/2010 OK WITH PEANUTS AND PEANUT BUTTER-ONLY CASHEWS CAUSE PROBLEM Sulfa (Sulfonamide Antibiotics) Hives,Rash 03/14/2010 Medications * This document contains information received from the source organization and may not represent a complete record from that organization. albuterol (VENTOLIN HFA) 90 mcg/actuation Inhl HFA Aerosol InhalerIndicatio ns:Uncomplicated asthma, unspecified asthma severity, unspecified whether persistent Inhale 2 Puffs into the lungs every 6 hours as needed for Wheezing. 1 Inhaler 5 9 Active Additional Information Patient not taking.Informant: Self/Patient, Reported on 02/16/2020 spironolactone (ALDACTONE) 25 mg Oral Tablet Take 1 Tab by mouth daily. 30 Tab 11 9 Active Additional Information Patient not taking.Reason: Therapy Completed, Reported on 02/01/2020 digoxin (LANOXIN) 250 mcg (0.25 mg) Oral Tablet Take 1 Tab by mouth daily. 30 Tab 11 9 Active Additional Information Patient not taking.Reported on 02/16/2020 multivitamin, stress formula (ALLBEE VIT WITH C & B COMPLEX) Oral Tablet Take 1 Tab by mouth daily. Active oxyCODONE-acetam inophen (PERCOCET) 5-325 mg Oral Tablet Take 1-2 Tabs by mouth every 6 hours as needed for Major Surgery/Trauma 50 Tab 01/10/2020 2:56 PM EST 0 Active Additional Information Patient not taking.Reason: Other, Reported on 01/22/2020 aspirin 81 mg Oral Tablet, Chewable Take 1 Tab by mouth daily. 0 Active Additional Information Patient not taking.Reported on 02/16/2020 metoprolol (LOPRESSOR) 25 mg Oral Tablet Take 0.5 Tabs by mouth 2 times daily. Hold for SBP < 110 and/or HR less than 65 30 Tab 3 01/10/2020 2:56 PM EST 0 Active Additional Information Patient not taking.Reason: Other, Reported on 01/22/2020 DULoxetine (CYMBALTA) 30 mg Oral Capsule, Delayed Release(E.C.)Ind ications:KESHIA (generalized anxiety disorder) Take 1 Cap by mouth daily. 90 Cap 3 0 Active Additional Information Patient not taking.Reported on 02/16/2020 pantoprazole (PROTONIX) 40 mg Oral Tablet, Delayed Release (E.C.) Take 1 Tab by mouth daily. 30 Tab 6 0 Active Additional Information Patient not taking.Reason: Therapy Completed, Reported on 02/01/2020 Active Problems Patient Care Coordination No te Formatting of this note migh t be different from the original. 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 Is doing very well at this point. 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 Asthma 03/14/2010 AR (allergic rhinitis) 03/14/2010 Chronic hepatitis C without hepatic coma 010 Subacute bacterial endocarditis Resolved Problems Problem Noted Date Diagnosed Date Resolved Date Endocarditis 02/13/2013 06/01/2013 Torticollis 02/13/2013 12/06/2015 Acute renal failure 01/10/2013 07/12/20 15 Torticollis 01/07/2013 07/12/2015 Fever 01/04/2013 06/01/2013 H/O endocarditis 01/04/2013 02/13/2013 Pneumonia due to methicillin resistant Staphylococcus aureus 09/14/2012 12/06/2015 Bacteremia 09/05/2012 12/06/2015 Pneumonia 08/27/2012 07/12/2015 Intravenous drug abuse 08/27/201206/01 Immunizations Immunization Administration Dates Next Due Hepatitis B, Unspecified Formulation 09/13/2012 Influenza Vaccine, Unspecified Formulation 08/27 PPD Test 09/12/2012,12/16/2011 Pneumococcal Polysaccharide 23 Valent 08/27/2012 Tdap 09/28/2012 Surgical History Surgery Date Site/Laterality Comments WISDOM TOOTH EXTRACTION BRONCHOSCOPY 08/30/2012 N/A bronchoscopy; Surgeon: Fernie Tay MD; Location: [facility]; Service: Endoscopy SECTION 10/18/2010 - 10/19/2010 N/A PRIMARY SECTION - SCIP performed by SHERRI BRICE at [facility] CARDIAC SURGERY 11/22/2013 - 11/21/2014 valve replacement CHOLECYSTECTOMY, LAPAROSCOPIC 04/15/2018 Abdomen/N/A LAPAROSCOPIC CHOLECYSTECTOMY ; Surgeon: Gloria Villa MD; Location: [facility] OR; Service: General MITRAL VALVE REPLACEMENT 01/05/2020 N/A Re-do Sternotomy,redo Tricuspid valve tissue, 3D transesophageal echocardiogram; Surgeon: Gordo Mason MD; Location: [facility] OR; Service: Open Heart Medical devices from this surgery are in the Medical Devices section. STERNOTOMY 01/05/2020 Surgeon: Gordo Mason MD; Location: [facility]; Service: Open Heart Medical devices from this surgery are in the Medical Devices section. Medical History Medical History Date Comments Allergy Asthma Anemia Anxiety Pneumonia IV drug user Tobacco use disorder Endocarditis tricuspid valve, 11/2011==NOV 2017 Encounter for blood transfusion DEC 2011 CHF (congestive heart failure) (HCC) PRICE 01/2013: EF 30%, mod RVE, mod-sev NINFA, mild MR, severe TR Hepatitis C Depression Anxiety Wears prescription eyeglasses Family History Medical History Relation Name Comments Heart Disease Father Hypertension Father Stroke Father Cancer Maternal Grandfather Cancer Maternal Grandmother Hypertension Paternal Grandfather Stroke Paternal Grandfather Cancer Paternal Grandmother Relation Name Status Comments Father Maternal Grandfather Maternal Grandmother Paternal Grandfather Paternal Grandmother Social History Tobacco Use Types Packs/Day Years Used Date Smoking Tobacco: Former Cigarettes 1 18.1 0 11/2000 - 01/01/2019 Smokeless Tobacco: Never Tobacco Cessation:Ready to Q uit: No; Counseling Given: Yes Alcohol Use Standard Drinks/Week Comments Yes 0 (1 standard drink = 0.6 oz pur e alcohol) OCC Overall Financial Resource Strain (CARDIA) Answe r Date Recorded Difficulty of Paying Living Expenses Not hard at all 02/02/2020 PHQ-2 Answer Date Recorded PHQ-2 Score 0 07/06/2019 Hunger Vital Sign Answer Date Recorded Worried About Running Out of Food in the Last Ye ar Never true 02/02/2020 Ran Out of Food in the Last Year Never true 02/02/2020 PRAPARE - Transportation Answer Date Re corded Lack of Transportation (Medical) No 02/02/2020 Lack of Transportation (Non-Medical) No 02/02/2020 Sexually Active Control Partners Comments Yes Male Comments No Sex and Gender Information Value Date Recorded Sex Assigned at Not on file Legal Sex Female 4:16 AM EDT Gender Identity Not on file Sexual Orientation Not on file 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 Not on file Not on file Obstetrics History Para Term AB IAB SAB Ectopic Multiple Livin g Live Births 2 2 2 1 3 3 Date Outcome GA Total Labor Labor/2nd/3rd Weight Sex Type Anes PTL Mera A1 A5 Name Clin 2007 Term 38w 0d 7 lb 5 oz (3.317 kg) M Vag-F orcep s Epidur al N Livin g Jona Acevedot ate Women 's 2009 Term 38w 0d 0h 01m 6 lb 6.1 oz (2.895 kg) F CS-LT ranv Epidur al Livin g 8 9 [facility] 2009 Term 38w 0d 0h 01m 6 lb 1.4 oz (2.76 kg) F CS-LT ranv Epidur al Livin g 9 9 [facility] Last Filed Vital Signs Vital Sign Reading Time Taken Comments Blood Pressure 84/55 02/16/2020 8:57 PM EDT Pulse 75 02/16/2020 8:57 PM EDT Temperature 38.2 C (100.7 F) 02/16/2020 3:43 PM EDT Respiratory Rate 18 02/16/2020 8:57 PM EDT Oxygen Saturation 100% 02/16/2020 8:57 PM EDT Inhaled Oxygen Concentration - - Weight 54.4 kg (120 lb) 02/16/2020 3:43 PM EDT Height 172.7 cm (5' 8 ) 02/16/2020 3:43 PM EDT Body Mass Index 18.25 02/16/2020 3:43 PM EDT Plan of Treatment Health Maintenance Due Date Last Done Comments Annual Wellness Exam 1991 Pneumococcal Vaccine 0-49 (2 of 2 - PCV) 08/27/2013 08/27/2012 HPV/Pap Cotest 2018 Hepatitis B Vaccine (3 of 3 - 19+ 3-dose series) 08/25/2019 06/30/2019, 09/13/2012 Cervical Cancer Screening 07/21/2020 Pap Smear 07/21/2020 07/21/2017 (Decl ined), 03/14/2010 DTaP/TDaP/Td (5 - Td or Tdap) 09/28/2022 09/28/2012, 12/23/2010, 12/24/2007, Additional history exists COVID-19 Vaccine (2023- season) 2024 Influenza Vaccine (#1) 2025 7 (Declined), 12/06/2015 (Declined), 09/03/2014, Additional history exists Meningococcal B Vaccine Aged Out No l onger eligible based on patient's age to complete this topic Goals Goal Patient Goal Type Associated Problems Recent Progress Patient-Stated? Author Maintain a healthy diet, exercise regularly and maintain an ideal body weight General No Nelda, Kendra, RMA Stay Tobacco Free Lifestyle No Nelda, Kendra, RMA Medical Devices Implanted Type Area Imagery Analyst Device Identifier Shelf Expiration Date Model / Serial / Lot Valve Bioprosthesis Pericardial W/Termafix Process Mitral Perimount 31mm - [id number] Implanted:Qty: 1 on 01/05/2020 by Gordo Mason MD at [facility] N/A: Heart [employer] 11/05/2022 [id number] / [id number] / [id number] Procedures Procedure Name Priority Date/Time Associated Diagnosis Comments CORPORATE COMPLIANCE DIRECTOR CYTOLOGY REPORT Routine 03/14/2010 5 :46 AM EDT from Last 3 Months or Most Recently Relevant to Health Maintenance Results * CORPORATE COMPLIANCE DIRECTOR CYTOLOGY REPORT (03/14/2010 5:46 AM EDT) Cardiology Physician Cytology Report PATIENT NAME:ALTA IZAGUIRRE Cardiology Physician Cytology Report Accession Number Collected Date/Time Received Date/Time [id number] 03/14/10 05:46 EDT 03/17/10 05:46 EDT GY Specimen Source Specimen Vag/Cerv/Endocx?: Cervical/Endocervi chuckie Statement of Adequacy Satisfactory for Evaluation. Transformation Zone Present. Diagnosis NEGATIVE FOR INTRAEPITHELIAL LESION OR MALIGNANCY. Comment The Pap Smear is a screening test that aids in the detection of cervical cancer and cancer precursors. Both false positive and false negative results can occur. The test should be used at regular intervals, and positive results should be confirmed before definitive therapy. Processed using the [employer] SolutionsPrep Blasting Cap Assembler automated cytology screening device (Owlr). Unhairer: OLIVIA 03/27/2010 Completed by: SHIVANI Stanton (Electronically signed by) 03/27/2010 [facility] 03/14/2010 5:46 AM EDT us Maria Del Carmen Stark MD PATHOLOGY ORDERABLES Final Re sult [facility] [address] [place] [address] from Last 3 Months or Most Recently Relevant to Health Maintenance Insurance [employer] [place] [facility] [id number] Advance Directives For more information, please contact: [phone] * Full Code (Latest Code Status on File) Date Activated Date Inactivated Comments 01/05/2020 1:39 PM 01/10/2020 7:51 PM * Full Code Date Activated Date Inactivated Comments 12/25/2017 1:10 AM 01/25/2018 5:26 PM * Full Code Date Activated Date Inactivated Comments 09/12/2012 8:02 PM 09/16/2012 2:15 AM
--- OUTSIDE RECORDS SUMMARY | 2025-07-19 20:54 | XMS_ITS | Clinical Summary ---
Author Organization [facility] Address [address] [place] [address] Care Team Providers Care Search Analyst Name Role Phone VermaSia patterson Kennedy SCHULTZ Primary Care Provider [phone] Allergies Active Allergy Reactions Criticality Noted Date Comments Amoxicillin-Pot Clavulanate Swelling High 08/09/2024 Cashew Nut Oil Rash Low 12/27/2017 Peanut Allergen Powder-Dnfp Shortness of breath,Swelling High 08/09/2024 Sulfa Drugs Hives Medium 08/09/2024 Vancomycin Other - please document in the comment field Low 08/12/2024 Dermatitis and kidney issues per patient report Medications aspirin 81 MG EC tablet Take 1 tablet (81 mg) by mouth 1 (one) time each day. 01/05/20 24 Active methadone (Dolophine) 10 MG/5ML solution Take 50 mL (100 mg) by mouth 1 (one) time each day. Active Multiple Vitamin (multivitamin) tablet Take 1 tablet by mouth 1 (one) time each day. Active naloxone (Narcan) 4 mg/0.1 mL nasal spray 1. Give 1 spray in nostril for no/slow breathing or cannot wake after opioid use 2. Call 911 3. Repeat in other nostril if symptoms continue Call 911. Give 4 mg (1 spray) into one nostril. Repeat every 2-3 minutes as needed, alternating nostrils, until medical assistance arrives. 1 each 11 08/10/20 24 025 Active ondansetron ODT (Zofran-ODT) 4 MG disintegrating tablet Take 1 tablet (4 mg) by mouth every 8 (eight) hours if needed for nausea or vomiting. 50 tablet 08/24/20 Active Additional Information Patient not taking.Reported on 10/25/2024 cephalexin (Keflex) 500 MG capsule Take 1 capsule (500 mg) by mouth 2 (two) times a day. 60 capsule 2 10/25/20 Active Hospital, Clinic, or Other Facility Administered Medication Ordered Dose Route Frequency Start Date End Date Status sodium chloride 0.9 % flush 10 mLIndications:Therapeutic drug monitoring 10 mL IV As needed 08/24/2024 08/19/2025 Active Active Problems Problem Noted Date Diagnosed Date BMI 33.0-33.9,adult 10/25/2024 Abdominal pain 09/12/2024 Cellulitis 09/12/2024 History of drug use 09/12/2024 Impetigo 09/12/2024 Sinus bradycardia 09/12/2024 Dyspnea 09/12/2024 Tricuspid valve replaced 09/12/2024 Moderate tricuspid regurgitation 09/12/2024 Acute bacterial endocarditis 08/18/2024 Hypocalcemia 08/11/2024 Depression with anxiety 08/09/2024 Tobacco abuse 08/09/2024 H/O: pneumonia 08/09/2024 Prediabetes 08/09/2024 Asthma 08/09/2024 Hyperlipidemia 08/09/2024 Hypertriglyceridemia 08/09/2024 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 Endocarditis 08/08/2024 H/O intravenous drug use 08/08/2024 H/O tricuspid valve replacement 08/08/2024 Overview (08/13/2024): s/p TV replacement in 2014 ([place]), 2018 ([facility]), Nov 2023([facility]) Class 2 obesity in adult 08/08/2024 Bacteremia 08/08/2024 Current smoker 08/08/2024 Right upper lobe pulmonary nodule 08/08/2024 Overview (08/13/2024): Incidentally noted on CT imaging Recommend 6 month follow-up Hepatitis C 08/08/2024 Substance use disorder 04/22/2020 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 AR (allergic rhinitis) 03/14/2010 Resolved Problems Problem Noted Date Diagnosed Date Resolved Date Thrombocytopenia 08/09/2024 08/13/2024 Overview (08/09/2024): Plt 143 on admit, per chart review plts were 62-89 6 months ago Improving, continue to monitor Transaminitis 08/09/2024 08/13/2024 Overview (08/09/2024): Alk phos 155 on admit No complaints of abdominal pain Continue to monitor daily Anemia 08/08/2024 08/13/2024 Overview (08/09/2024): Hemoglobin 10.3 at OSH, improved to 11.3 today Monitor daily & PRN Replace if hemoglobin less than 7 Fever 08/08/2024 08/13/2024 Overview (08/09/2024): 99.5 PRN Tylenol ordered Monitor with VS Q4 hours Thyrotoxicosis 08/08/2024 08/09/2024 Overview (08/09/2024): OSH with TSH 0.3 & Free T4 1.79 TSH 1.03 and Free T4 1.6 Thyroid US from OSH: right thyroid lobe 52mm. Left thyroid lobe 53mm. Mildly heterogeneous echotexture. [id number] spongiform nodule in the right thyroid lobe consistent with TI-RADS 1 nodule. F/U with endocrine outpatient Immunizations Immunization Administration Dates Next Due DTaP, Unspecified 03/21/1993, 0,01/15/1989,11/17,1988 HPV, Quadrivalent 03/20/2014 Hep A, Adult 03/15/2019,08/05/2018 Hep B, Unspecified 09/13/2012 Hep B, adult 06/30/2019 HiB, unspecified 01/21/1990 Influenza, Unspecified 08/27/2012 Influenza, seasonal, injectable 09/03/2014 Influenza, seasonal, intrade rmal, preservative free 12/19/2013 MMR 05/09/1999,10/29/1989 PPD Skin Test (TB Skin Test) 09/12/2012,12/16/19 12 Pneumococcal Polysaccharide PPV23 08/27/2012 Polio, Unspecified 03/21/1993, 0,1988,08/21 TD (adult), 2 Lf tetanus tox oid, preservative free, adsorbed 02/26/2003 Tdap 09/28/2012,12/23/2010,12/24/2007 Family History Medical History Relation Name Comments Heart attack Father Stroke Father Conversions - Other Mother Healthy adult Relation Name Status Comments Father Mother Social History Tobacco Use Types Packs/Day Years Used Date Smoking Tobacco: Former Cigarettes Q uit: 11/22/2023 Passive Smoke Exposure: Current Smokeless Tobacco: Current Tobacco Cessation:Ready to Q uit: Not Asked; Counseling Given: Not Answered Comments:Vape Alcohol Use Standard Drinks/Week Comments No 0 (1 standard drink = 0.6 oz pur e alcohol) Humiliation, Afraid, Rape, and Kick questionnair e Answer Date Recorded Within the last year, have y ou been afraid of your partner or ex-partner? No 08/09/2024 Within the last year, have y ou been humiliated or emotionally abused in other ways by your partner or ex-partner? No Within the last year, have y ou been kicked, hit, slapped, or otherwise physically hurt by your partner or ex-partner? No 08/09/2024 Within the last year, have y ou been raped or forced to have any kind of sexual activity by your partner or ex-partner? No 08/09/2024 Overall Financial Resource Strain (CARDIA) Answe r Date Recorded How hard is it for you to pa y for the very basics like food, housing, medical care, and heating? Not hard at all 08/09/2024 PHQ-2 Answer Date Recorded Patient Health Questionnaire-2 Score 1 08/24/2024 Hunger Vital Sign Answer Date Recorded Within the past 12 months, y ou worried that your food would run out before you got the money to buy more. Never true 08/09/20 24 Within the past 12 months, t he food you bought just didn't last and you didn't have money to get more. Never true 08/09/2024 PRAPARE - Transportation Answer Date Re corded In the past 12 months, has l ack of transportation kept you from medical appointments or from getting medications? No 07/23 In the past 12 months, has l ack of transportation kept you from meetings, work, or from getting things needed for daily living? No 08/09/2024 Housing Stability Vital Sign Answer Carlo e Recorded In the last 12 months, was t here a time when you were not able to pay the mortgage or rent on time? No 08/09/2024 In the last 12 months, how many places have you lived? 1 08/09/2024 In the last 12 months, was t here a time when you did not have a steady place to sleep or slept in a penitentiary (including now)? No 08/09/2024 CAGE ASSESSMENT Answer Date Recorded Cage unable to access Not on file 08/09/2024 Cage max number of drinks Not on file 2023 Cage Beverages a week Not on file 08/09/2024 Have you ever felt you should CUT down on your d rinking? 0 08/09/2024 Have you been ANNOYED by people criticizing your drinking? 0 08/09/2024 Have you felt GUILTY about your drinking? 0 08/09/2024 Have you had a drink first t ronni in the morning (EYE-TIRE TRIMMER HAND) to steady your nerves or to get rid of a hangover? 0 08/09/2024 CAGE Questionnaire Score 0 024 Utilities Answer Date Recorded In the past 12 months has th e [employer], gas, oil, or water company threatened to shut off services in your home? No 08/09/2024 Comments Unknown Sex and Gender Information Value Date Recorded Sex Assigned at Not on file Legal Sex Female 6:32 PM EDT Gender Identity Not on file Sexual Orientation Not on file Last Filed Vital Signs Vital Sign Reading Time Taken Comments Blood Pressure 135/71 10/25/2024 10:54 AM EST Pulse 66 10/25/2024 10:49 AM EST Temperature 36.7 C (98 F) 09/12/2024 10:20 AM EDT Respiratory Rate 18 09/12/2024 10:2 0 AM EDT Oxygen Saturation 96% 10/25/2024 10: 49 AM EST Inhaled Oxygen Concentration - - Weight 98.8 kg (217 lb 11.3 oz) 024 10:49 AM EST Height 172.7 cm (5' 8 ) 10/25/2024 10:4 9 AM EST Body Mass Index 33.1 10/25/2024 10:49 AM EST Plan of Treatment Health Maintenance Due Date Last Done Comments Dental Oral Exam 1988 Dental Prophylaxis 1988 [facility]-Infant/Child/Adol SDOH Screenings 1988 [facility]-Varicella Vaccines (1 of 2 - 13+ 2-dose series) 2001 [facility]-Pap Smear 2009 [facility]-Pneumococcal Vaccine: Pediatrics (0 to 5 Years) and At-Risk Patients (6 to 49 Years) (2 of 2 - PCV) 08/27/2013 08/27/2012 HPV Vaccines (2 - 3-dose series) 04/17/2014 03/20/2014 [facility]-Cervical Cancer Screening 2018 [facility]-HPV/Cotest 2018 [facility]-Hepatitis B Vaccines (3 of 3 - 19+ 3-dose series) 08/25/2019 06/30/2019, 09/13/2012 Dental X-Ray: Bitewings 03/07/2021 03/06/2020 [facility]-DTaP,Tdap,and Td Vaccines (9 - Td or Tdap) 09/28/2022 09/28/2012, 12/23/2010, 12/24/2007, Additional history exists [id number] Vaccine ( - season) 2024 [facility]-Diabetes: Hemoglobin A1C 12/01/2024 12/01/2023, 09/19/2014 [facility]- SDOH Screenings 02/06/2025 [facility]-Adult SDOH Screenings 02/06/2025 08/09/2024 [facility]-Influenza Vaccine (#1) 07/23/202509/03, 12/19/2013, 08/27/2012 [facility]-Depression Screening 08/24/2025 08/24/2024 Dental X-Ray: Full Mouth 02/02/2028 01/31/2025, 02/20 [facility]-Zoster Vaccines (1 of 2) 2038 [facility]-HIB Vaccines Completed 01/21/1990 [facility]-IPV Vaccines Aged Out 03/21/1993, 12/1989, 1988, Additional history exists No longer eligible based on patient's age to complete this topic [facility]-Hepatitis A Vaccines Completed 03/15/2019, 07/23 [facility]-HIV Screening Completed 08/09/2024, , 03/02/2020, Additional history exists [facility]-Obesity Intervention Completed 025, 10/25/2024, 10/25/2024, Additional history exists [facility]-Rotavirus Vaccines Aged Out No lo nger eligible based on patient's age to complete this topic Procedures Procedure Name Priority Date/Time Associated Diagnosis Comments PANORAMIC RADIOGRAPHIC IMAGE Routine 01/31/2025 9:45 AM EDT Dental decay HIV 1/2 ANTIBODY/ANTIGEN SCREEN WITH REFLEX TO HIV I/II DIFFERENTIATION Routine 08/09/2024 9:22 AM EDT INTRAORAL - COMPLETE SERIES OF RADIOGRAPHIC IMAGES Routine 03/06/2020 12:00 AM EDT HEMOGLOBIN A1C Routine 09/19/2014 4:44 AM EDT from Last 3 Months or Most Recently Relevant to Health Maintenance Results * HIV 1 & 2 Antibody/Antigen Screen (08/09/2024 9:22 AM EDT) HIV 1 & 2 Antibody/Antigen Screen Non Reactive Non Reactive 08/09/2024 10:31 AM EDT [facility] Comment:Screening for HIV 1 & 2 antibodies, and P24 antigen is NONREACTIVE. No confirmatory testing is required. Blood Venous blood specimen / Unknown Venipuncture / Unknown 08/09/2024 9:22 AM EDT 08/09/2024 9:30 AM EDT Sunny Moses DIRECTOR TELEVISION NEWS LAB BLOOD ORDERABLES Final Result [facility] [address] [place] [address] * Hemoglobin A1c (09/19/2014 4:44 AM EDT) Hemoglobin A1c 5.7 4.7 - 6.0 % [facility] Comment: (NOTE) Glycohemoglobin, 0 years and up: 4.7 - 6.0% . HbA1c assay performed by an ion-exchange chromatography method that is certified traceable to the DCCT. 09/19/2014 4:44 AM EDT 09/19/2014 5:13 AM EDT Historical Provider LAB BLOOD ORDERABLES Final R esult [facility] from Last 3 Months or Most Recently Relevant to Health Maintenance Additional Health Concerns Infection Onset Date Last Indicated MRSA Comment:Added from external infection. Source: [facility]. 09/16/2023 MRSA Escalation Plan Comment:MRSA Escalation Plan is in effect as of 07/21/2024. Patient will require contact precautions for the duration of the hospital admission, regardless of movement to another unit. This infection may be resolved upon discharge from the hospital. 08/10/2024 08/10/[address] [place] [id number] [facility] MEDICAID MEDICAID [facility] Advance Directives * Full Code (Latest Code Status on File) Date Activated Date Inactivated Comments 08/09/2024 9:29 AM 08/13/2024 6:38 PM Question Answer Comments Patient has decision-making capacity? Yes Care Teams Search Analyst Relationship Specialty Start Date End Date Sia Verma APRN [address] [place] [address] PCP - General 08/09/24
--- OUTSIDE RECORDS SUMMARY | 2025-07-19 20:54 | XMS_ITS | Encounter Summary ---
Author Organization [facility] Address [address] [place] [address] Care Team Providers Care Burlap Roll Coverer Name Role Phone Sia Verma APRN Primary Care Provider + Sia Verma APRN Primary Care Provider + Encounter Details Date Type Department Care Team (Late st Contact Info) Description 04/16/2021 [facility] [address] [place] [address] Dental, Provider, DDS [address] [place] [id number] Social History Tobacco Use Types Packs/Day Years Used Date Smoking Tobacco: Every Day Alcohol Use Standard Drinks/Week Comments No 0 (1 standard drink = 0.6 oz pur e alcohol) Comments Unknown Sex and Gender Information Value Date Recorded Sex Assigned at Not on file Legal Sex Female 6:32 PM EDT Gender Identity Not on file Sexual Orientation Not on file documented as of this encounter Plan of Treatment Not on file documented as of this encounter Visit Diagnoses Not on filedocumented in this encounter Additional Health Concerns Infection Onset Date Last Indicated Resolved Time MRSA Comment:Added from external infection. Source: [facility]. 09/16/2023 MRSA Escalation Plan Comment:MRSA Escalation Plan is in effect as of 07/21/2024. Patient will require contact precautions for the duration of the hospital admission, regardless of movement to another unit. This infection may be resolved upon discharge from the hospital. 08/10/2024 08/10/2024 documented as of this encounter Care Teams Burlap Roll Coverer Relationship Specialty Start Date End Date Sia Verma APRN [address] [place] [address] PCP - General 08/09/24 Sia Verma APRN [address], [place] [address] PCP - General 08/09/22 08/08/24 documented as of this encounter
--- OUTSIDE RECORDS SUMMARY | 2025-07-19 20:54 | XMS_ITS | Clinical Summary ---
[facility] Address [address] [place] [address] Care Team Providers Care Mud Jack Nozzleman Name Role Phone Provider, No Known Primary Care Provider Allergies Active Allergy Reactions Criticality Noted Date Comments Nuts Anaphylaxis High 08/09/2023 Sulfa Antibiotics Hives 06/28/2019 Medications albuterol sulfate HFA 108 (90 Base) MCG/ACT inhaler Inhale 2 puffs Every 4 (Four) Hours As Needed for Wheezing. Active METHADONE 50MG/ML ORAL CONC Take 2 mL by mouth Daily. Active metoprolol tartrate (LOPRESSOR) 25 MG tablet Take 0.5 tablets by mouth Every 12 (Twelve) Hours. 90 tablet 3 01/05/2024 Active furosemide (LASIX) 20 MG tablet Take 1 tablet by mouth Daily. 90 tablet 3 01/05/2024 Active clopidogrel (PLAVIX) 75 MG tablet Take 1 tablet by mouth Daily. 90 tablet 3 01/05/2024 Active aspirin 81 MG EC tablet Take 1 tablet by mouth Daily. 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 Jaundice 06/28/2019 Acute hepatitis 06/28/2019 Hepatitis C 06/28/2019 Malaise 06/28/2019 History of endocarditis 06/28/2019 Overview (06/28/2019): S/p bioprosthetic tricuspid valve replacement Chronic CHF 06/28/2019 History of laparoscopic cholecystectomy 06/28/20 19 Asthma 06/28/2019 Thrombocytopenia 06/28/2019 Immunizations Immunization Administration Dates Next Due Hepatitis B 06/30/2019 Family History Medical History Relation Name Comments Heart attack Father Heart disease Father Stroke Father Lung cancer Maternal Grandfather Lung cancer Maternal Grandmother Breast cancer - additional onset Mother Heart attack Paternal Grandfather Stroke Paternal Grandfather Heart attack Paternal Uncle Relation Name Status Comments Father Maternal Grandfather Maternal Grandmother Mother Alive Paternal Grandfather Paternal Uncle Social History Tobacco Use Types Packs/Day Years Used Date Smoking Tobacco: Every Day Smokeless Tobacco: Never Comments:Caffeine use minima l Passive Exposure Comments:vape Alcohol Use Standard Drinks/Week Comments No 0 (1 standard drink = 0.6 oz pur e alcohol) [employer] Util[employer] Answer Date Recorded In the past 12 months has [employer], gas, oil, or water [employer] threatened to shut off services in your home? No 12/06/2023 AUDIT-C Answer Date Recorded Q1: How often do you have a drink containing alc ohol? Patient declined 12/01/2023 Q2: How many drinks containi ng alcohol do you have on a typical day when you are drinking? Patient declined 12/01/2023 Q3: How often do you have si x or more drinks on one occasion? Patient declined 12/01/2023 Overall Financial Resource Strain (CARDIA) Answe r Date Recorded How hard is it for you to pa y for the very basics like food, housing, medical care, and heating? Not hard at all 12/06/2023 [facility] - Occupational Stress Questionnaire Answer Date Recorded Do you feel stress - tense, restless, nervous, or anxious, or unable to sleep at night because your mind is troubled all the time - these days? Not at all 12/06/2023 Exercise Vital Sign Answer Date Recorde d On average, how many days pe r week do you engage in moderate to strenuous exercise (like a brisk walk)? 3 days 12/06/2023 On average, how many minutes do you engage in exercise at this level? 10 min 12/06/2023 Hunger Vital Sign Answer Date Recorded Within the past 12 months, y ou worried that your food would run out before you got the money to buy more. Never true 12/06/19 24 Within the past 12 months, t he food you bought just didn't last and you didn't have money to get more. Never true 12/06/2023 PRAPARE - Transportation Answer Date Re corded In the past 12 months, has l ack of transportation kept you from medical appointments or from getting medications? No 11/22 In the past 12 months, has l ack of transportation kept you from meetings, work, or from getting things needed for daily living? No 12/06/2023 Abuse Screen Answer Date Recorded Feels Unsafe at Home or Work/School no 12/01/2023 Feels Threatened by Someone no 11/22 Does Anyone Try to Keep You From Having Contact with Others or Doing Things Outside Your Home? no 12/01/2023 Physical Signs of Abuse Present no 12/01/2023 Housing Stability Answer Date Recorded Current Living Arrangements apartment 11/22 Potentially Unsafe Housing Conditions none 12/06/2023 Family and Community Support Answer Carlo e Recorded If for any reason you need h elp with day-to-day activities such as bathing, preparing meals, shopping, managing finances, etc., do you get the help you need? I don't need any help 12/06/2023 How often do you feel lonely or isolated from those around you? Never 12/06/2023 Employment Answer Date Recorded Do you want help finding or keeping work or a job? I do not need or want help 12/06/2023 Disabilities Answer Date Recorded Difficulty Concentrating, Remembering or Making Decisions no 12/01/2023 Difficulty Managing Errands Independently no 12/01/2023 Education Answer Date Recorded Do you want help with school or training? For example, starting or completing job training or getting a high school diploma, GED or equivalent No 12/06/2023 Preferred Language Tanzanian 12/06/2023 PHQ-2 Answer Date Recorded Retired PHQ-9: Brief Depression Severity Measure Score 0 12/06/2023 Comments No Sex and Gender Information Value Date Recorded Sex Assigned at Not on file Legal Sex Female 10:57 AM EDT Gender Identity Not on file Sexual Orientation Not on file Last Filed Vital Signs Vital Sign Reading Time Taken Comments Blood Pressure 112/70 01/05/2024 11:27 AM EST Pulse 74 01/05/2024 11:27 AM EST Temperature 36.8 C (98.2 F) 12/22/2023 10:54 AM EST Respiratory Rate 18 12/22/2023 10:54 AM EST Oxygen Saturation 96% 12/22/2023 10:54 AM EST Inhaled Oxygen Concentration - - Weight 102 kg (224 lb) 01/05/2024 11:27 AM EST Height 175.3 cm (5' 9 ) 01/05/2024 11:27 AM EST Body Mass Index 33.08 01/05/2024 11:27 AM EST Plan of Treatment Health Maintenance Due Date Last Done Comments Annual Gynecologic Pelvic an d Breast Exam 1988 Pneumococcal Vaccine 0-49 (2 of 2 - PCV) 08/27/2013 08/27/2012 ANNUAL PHYSICAL 07/02/2019 Hepatitis B (3 of 3 - 19+ 3- dose series) 08/25/2019 06/30/2019, 09/13/2012 TDAP/TD VACCINES (5 - Td or Tdap) 09/28/2022 09/28/2012, 12/23/2010, 12/24/2007, Additional history exists COVID-19 Vaccine (2023-2 5 season) 2024 INFLUENZA VACCINE 08/22/2025 09/03/2014, , 08/27/2012 HEPATITIS C SCREENING Completed 08/08/2024 , 08/09/2023, 01/05/2020, Additional history exists Medical Devices Implanted Type Area Info Analyst Device Identifier Shelf Expiration Date Model / Serial / Lot Wr Strn Myowire2 Ss Dbl Ccs2 18in Sz7 - [id number] Implanted:Qty: 1 on 12/02/2023 by Chan Coyle MD at [facility] Implant N/A: Sternum A AND E MED 12/23/2027 [id number] / / [id number] Wr Strn Myowire2 Ss Dbl Be3 14in Sz6 Pk/3 - [id number] Implanted:Qty: 1 on 12/02/2023 by Chan Coyle MD at [facility] Implant N/A: Sternum A AND E MED 05/22/2028 [id number] / / [id number] Hemost Abs Surgifoam Sz100 8x12 10mm - [id number] Implanted:Qty: 1 on 12/02/2023 by Chan Coyle MD at [facility] Implant N/A: Chest [employer] J AND J 1974 / / . Vlv Mitral Mosaic 33mm - [id number] Implanted:Qty: 1 on 12/02/2023 by Chan Coyle MD at [facility] Implant N/A: Sternum [employer] 08/06/2026 [id number] / / . Wr Strn Myowire2 Ss Dbl Be3 14in Sz6 Pk/3 - [id number] Implanted:Qty: 1 on 12/02/2023 by Chan Coyle MD at [facility] Implant N/A: Sternum A AND E MED 05/22/2028 [id number] / / [id number] Procedures Procedure Name Priority Date/Time Associated Diagnosis Comments HEPATITIS PANEL, ACUTE STAT 06/28/2019 12:22 PM EDT from Last 3 Months or Most Recently Relevant to Health Maintenance Results * (ABNORMAL) Hepatitis Panel, Acute (06/28/2019 12:22 PM EDT) Hepatitis B Surface Ag Non-Reacti ve Non-Reacti ve 06/28/2019 3:23 PM EDT LABORATORY Hep A IgM Non-Reacti ve Non-Reacti ve 06/28/2019 3:23 PM EDT LABORATORY Hep B C IgM Non-Reacti ve Non-Reacti ve 06/28/2019 3:23 PM EDT LABORATORY Hepatitis C Ab Reactive(A ) Non-Reacti ve 06/28/2019 3:23 PM EDT LABORATORY Blood Venipuncture / Unknown 06/28/2019 12:22 PM EDT 06/28/2019 12:35 PM EDT us Jignesh Griffin MD LAB BLOOD ORDERABLES Final R esult LABORATORY
[id number] [place] [address], from Last 3 Months or Most Recently Relevant to Health Maintenance Additional Health Concerns Infection Onset Date Last Indicated MRSA/History Only Comment:08/27/20 blood 09/16/23 Current IC guidance for MRSA history without any active MRSA infections is Standard Precautions with patient care. Laila Benitez RN 12/02/2023: Current IC guidance for MRSA history without any active MRSA infections is Standard Precautions with patient care. Marcela Davis RN 09/16/2023 09/16/2023 Insurance [employer] [place]ICAID [place] Advance Directives * CPR (Attempt to Resuscitate) (Latest Code Status on File) Date Activated Date Inactivated Comments 12/02/2023 12:43 PM 12/06/2023 3:03 PM Question Answer Comments Code Status (Patient has no pulse and is not breathing): CPR (Attempt to Resuscitate) Medical Interventions (Patie nt has pulse or is breathing): Full Support * CPR (Attempt to Resuscitate) Date Activated Date Inactivated Comments 12/01/2023 3:05 PM 12/02/2023 12:43 PM Question Answer Comments Code Status (Patient has no pulse and is not breathing): CPR (Attempt to Resuscitate) Medical Interventions (Patie nt has pulse or is breathing): Full Support Level Of Support Discussed With: Patient * CPR (Attempt to Resuscitate) Date Activated Date Inactivated Comments 12/01/2023 2:53 PM 12/01/2023 3:05 PM Question Answer Comments Code Status (Patient has no pulse and is not breathing): CPR (Attempt to Resuscitate) Medical Interventions (Patie nt has pulse or is breathing): Full Support * CPR (Attempt to Resuscitate) Date Activated Date Inactivated Comments 06/28/2019 3:56 PM 07/01/2019 6:48 PM Question Answer Comments Code Status (Patient has no pulse and is not breathing): CPR (Attempt to Resuscitate) Medical Interventions (Patie nt has pulse or is breathing): Full Care Teams Mud Jack Nozzleman Relationship Specialty Start Date End Date Provider, [place] [address] PCP - General 08/09/23
[2025-07-19] MEDS: ACETAMINOPHEN 325MG TAB 650 MG PO (21:07)
[2025-07-19 21:16] LABS: Strep Scrn Group A (Rapid) Negative (Negative)
[2025-07-19 21:23] VITALS: BP 109/80; PULSE 73; RESP 14; TEMP 36.6; O2SAT 98
== END 2025-07-19 21:30 | disposition home or self-care (01) ==
PROVIDERS: Nurse Practitioner Family; Emergency Provider Student in an Organized Health Care Education/Training Program; PCP Nurse Practitioner Family
DX: J02.9 Acute pharyngitis, unspecified (principal)
CPT/HCPCS: 87430; 99282